=== PATIENT | female | born 1960 | race Caucasian/White ===

== ENCOUNTER → 2020-08-04 10:50 | Outpatient (BNVA) | payer OTHER, SELFPAY | PROVIDERS: Visit Provider Nurse Practitioner | DX: M19.072 Primary osteoarthritis, left ankle and foot (principal); M79.675 Pain in left toe(s) | CPT/HCPCS: 73630 ==

== ENCOUNTER 2021-02-20 13:14 | Outpatient (CLI) | payer OTHER, SELFPAY ==
--- NOTE | 2021-02-20 13:21 | MM_ITS ---
WS: [id number] SCREENING DIGITAL MAMMOGRAM WITH CAD HISTORY: SCREENING COMPARISON: None available. Bilateral CC and MLO views submitted. Computer aided detection analyzed. Breast composition: There are scattered areas of fibroglandular density. No suspicious masses. There are a few benign calcifications within each breast. MM/[place] [id number] IMPRESSION: BI-RADS: 0-Incomplete: Need additional imaging evaluation FOLLOW UP: Need Additional Imaging Patient describes a palpable abnormality in the LEFT breast near 6:00. This nee ds to be further evaluated with diagnostic mammogram and possible ultrasound fo llow-up.
== END 2021-02-20 13:15 | disposition home or self-care (01) ==
LOC: RADSHAW 13:20
PROVIDERS: PCP Family Medicine Adult Medicine; Visit Provider Family Medicine Adult Medicine
DX: Z12.31 Encounter for screening mammogram for malignant neoplasm of breast (principal)
CPT/HCPCS: 77067

== ENCOUNTER 2021-03-06 12:44 | Outpatient (CLI) | payer OTHER, SELFPAY ==
--- NOTE | 2021-03-06 13:00 | MM_ITS ---
WS: [id number] ADDITIONAL VIEWS LEFT MAMMOGRAM LEFT BREAST ULTRASOUND HISTORY: Patient describes a palpable abnormality in the LEFT breast COMPARISON: 02/20/2021 LEFT MAMMOGRAM: Spot compression views and true ML. Marker placed in the LEFT breast at the area of palpable concern. Today this palpable marker is place d near 9:00 and not 6:00. No underlying abnormality is identified. There may be a small lymph node. U ltrasound to follow. LEFT BREAST ULTRASOUND 2-D and color Doppler imaging submitted. Ultrasound directed to the palpable area. No mass is identified. There is no soft tissue abnormality or increased vascularity. MM/[place] [id number] IMPRESSION: BI-RADS: 2-Benign FOLLOW UP: 1 Year Follow-up No abnormality in the region of the palpable nodule LEFT breast.
--- NOTE | 2021-03-06 13:30 | US_ITS ---
WS: [id number] ADDITIONAL VIEWS LEFT MAMMOGRAM LEFT BREAST ULTRASOUND HISTORY: Patient describes a palpable abnormality in the LEFT breast COMPARISON: 02/20/2021 LEFT MAMMOGRAM: Spot compression views and true ML. Marker placed in the LEFT breast at the area of palpable concern. Today this palpable marker is place d near 9:00 and not 6:00. No underlying abnormality is identified. There may be a small lymph node. U ltrasound to follow. LEFT BREAST ULTRASOUND 2-D and color Doppler imaging submitted. Ultrasound directed to the palpable area. No mass is identified. There is no soft tissue abnormality or increased vascularity. US/US breast LT limited* [id number] IMPRESSION: BI-RADS: 2-Benign FOLLOW UP: 1 Year Follow-up No abnormality in the region of the palpable nodule LEFT breast.
== END 2021-03-06 12:45 | disposition home or self-care (01) ==
LOC: RADSHAW 12:52
PROVIDERS: PCP Family Medicine Adult Medicine; Visit Provider Family Medicine Adult Medicine
DX: N63.25 Unspecified lump in the left breast, overlapping quadrants (principal)
CPT/HCPCS: 76642; 77065

== ENCOUNTER → 2021-03-26 14:55 | Outpatient (BNVA) | payer OTHER, SELFPAY | PROVIDERS: PCP Family Medicine Adult Medicine; Referring Provider Family Medicine Adult Medicine; Visit Provider Specialist | DX: M17.12 Unilateral primary osteoarthritis, left knee (principal); M17.11 Unilateral primary osteoarthritis, right knee | CPT/HCPCS: 73560; 73565 ==

== ENCOUNTER → 2021-04-23 09:24 | Outpatient (BNVA) | payer OTHER, SELFPAY | PROVIDERS: PCP Family Medicine Adult Medicine; Visit Provider Family Medicine Adult Medicine | DX: E11.9 Type 2 diabetes mellitus without complications (principal); E66.01 Morbid (severe) obesity due to excess calories; Z68.42 Body mass index [BMI] 45.0-49.9, adult; I10 Essential (primary) hypertension; M19.90 Unspecified osteoarthritis, unspecified site | CPT/HCPCS: 80053; 80061; 83036; 84443; 85025; 85651 ==

== ENCOUNTER → 2021-05-17 11:10 | Outpatient (BNVA) | payer OTHER, SELFPAY | PROVIDERS: PCP Family Medicine Adult Medicine; Visit Provider Nurse Practitioner Family | DX: Z20.822 Contact with and (suspected) exposure to COVID-19 (principal); J06.9 Acute upper respiratory infection, unspecified | CPT/HCPCS: 87426 ==

== ENCOUNTER 2021-05-18 11:46 | Outpatient (CLI) | payer OTHER, SELFPAY ==
[2021-05-18 11:40] VITALS: BP 135/82; PULSE 74; RESP 18; TEMP 36.9; O2SAT 96; BMI 47.1
[2021-05-18 13:14] VITALS: BP 166/82; PULSE 68; RESP 17; O2SAT 96
[2021-05-18 14:14] VITALS: BP 142/83; PULSE 73; RESP 18; TEMP 36.7; O2SAT 98
== END 2021-05-18 11:47 | disposition home or self-care (01) ==
PROVIDERS: PCP Family Medicine Adult Medicine; Visit Provider Nurse Practitioner Family
DX: U07.1 COVID-19 (principal)
CPT/HCPCS: 96365

== ENCOUNTER → 2021-06-29 12:04 | Outpatient (BNVA) | payer OTHER, SELFPAY | PROVIDERS: PCP Family Medicine Adult Medicine; Visit Provider Family Medicine Adult Medicine | DX: R11.0 Nausea (principal) | CPT/HCPCS: 82270 ==

== ENCOUNTER → 2021-07-03 12:06 | Outpatient (BNVA) | payer OTHER, SELFPAY | PROVIDERS: PCP Family Medicine Adult Medicine; Visit Provider Family Medicine Adult Medicine | DX: E78.5 Hyperlipidemia, unspecified (principal); R11.0 Nausea; Z13.6 Encounter for screening for cardiovascular disorders | CPT/HCPCS: 80053; 82150; 83036; 83690; 85025 ==

== ENCOUNTER → 2021-07-04 11:21 | Outpatient (BNVA) | payer OTHER, SELFPAY | PROVIDERS: PCP Family Medicine Adult Medicine; Visit Provider Family Medicine Adult Medicine | DX: E78.5 Hyperlipidemia, unspecified (principal); R11.0 Nausea; Z13.6 Encounter for screening for cardiovascular disorders | CPT/HCPCS: 87177; 87209 ==

== ENCOUNTER 2021-07-19 09:05 | Outpatient (CLI) | payer OTHER, SELFPAY ==
[2021-07-19] MEDS: iohexol 300 mg/mL 50 mL Btl PO (09:49)
[2021-07-19] MEDS: iohexol 350 mg/mL 100 mL Btl IV (10:42)
--- NOTE | 2021-07-19 11:00 | CT_ITS ---
WS: [id number] CT ABDOMEN AND PELVIS WITH CONTRAST HISTORY: R10.9 - Unspecified abdominal pain, mid abdominal pain for 4 to 5 months. TECHNIQUE: Imaging performed of the abdomen and pelvis with IV contrast. Single phase imaging of the abdomen. Coronal and sagittal reformats are submitted. All CT scans at [facility] use at [address] one of these dose optimization techniques: automated exposure control; mA and/or kV adjustment per patient size (includes targeted exams where dose is matched to clinical indication); or iterative re construction. IV CONTRAST: Omnipaque 350; 95 mL IV. Oral contrast: Yes. DLP: 1292.56 mGycm COMPARISON: None available. Lower thorax: Low-attenuation mass abutting the pericardium of the RIGHT atrium measures 4.3 x 1.8 cm . . Mildly enlarged heart. No pericardial effusion. No hiatal hernia. Liver/biliary system: Normal size with no intrahepatic dilatation. Gallbladder: Normal. No gallstones or wall thickening. No pericholecystic fluid. Pancreas: Normal size pancreas and pancreatic duct. No adjacent inflammation. Spleen: Normal size spleen. No mass or infarct. Adrenal glands: Normal. Right kidney: Normal size kidney. Exophytic 7 mm cyst from the mid kidney. No obstruction. Left kidney: Normal. Aorta: Normal. Lymphadenopathy: None. Free fluid: None. GI tract: Normal appendix. No GI tract obstruction. Numerous diverticula in the descending and sigmoi d colon. There is some very mild inflammation surrounding the sigmoid colon with narrowing of the lum en. Abdominal wall: Small fat-containing umbilical hernia. Pelvis: Normal size anteverted uterus. No free fluid or pelvic masses. Normal urinary bladder. Bones: Moderate degenerative disc disease and vacuum disc phenomenon at L4-5 and L5-S1. CT/CT abdomen pelvis w con* [id number] IMPRESSION: 1. Normal appendix. 2. No renal obstruction. 3. Descending and sigmoid diverticulosis. Focal area of mild inflammation and luminal narrowing in the sigmoid colon. Low-grade diverticulitis should be susp ected. No abscess or free air. 4. Pericardial cyst abutting the RIGHT atrium.
== END 2021-07-19 09:06 | disposition home or self-care (01) ==
PROVIDERS: PCP Family Medicine Adult Medicine; Visit Provider Surgery
DX: R10.9 Unspecified abdominal pain (principal); K57.30 Diverticulosis of large intestine without perforation or abscess without bleeding
CPT/HCPCS: 74177; Q9967

== ENCOUNTER 2021-08-28 08:22 | Outpatient (CLI) | payer OTHER, SELFPAY ==
--- NOTE | 2021-08-28 08:27 | FL_ITS ---
WS: [id number] Barium Enema TECHNICAL: Double contrast barium enema FLUOROSCOPY TIME: 2.7 minutes CLINICAL INFORMATION: R10.9 - Unspecified abdominal pain COMPARISON: CT July 19, 2021 FINDINGS: Tortuous sigmoid colon. Sigmoid diverticulosis. Mild narrowing in the area of recently natalie kishore diverticulitis. No evidence of high-grade stricture or obstructing mass. Free flow of contrast in to the hepatic flexure and splenic flexures. Tortuous hepatic flexure. Additional colonic diverticulo sis scattered throughout the colon. Normal cecum and ileocecal valve. No suspicious findings. FL/FL barium enema w air* [id number] IMPRESSION: Unremarkable barium enema
== END 2021-08-28 08:23 | disposition home or self-care (01) ==
LOC: RAD 08:24
PROVIDERS: PCP Family Medicine Adult Medicine; Visit Provider Surgery
DX: R10.9 Unspecified abdominal pain (principal)
CPT/HCPCS: 74280

== ENCOUNTER 2021-09-19 07:51 | Outpatient (CLI) | payer OTHER, SELFPAY ==
--- NOTE | 2021-09-19 08:00 | USCV_ITS ---
Arelis Nathan Age: 61 Gender: F : 1960 Exam Date: 09/19/2021 08:23 Ordering Phys: Marquis Diamond MD ([email or web address]) Technologist: LAWRENCE Exam Location: [facility] [place] Indication: CARDIOMEGALY BP: 140 / 86 HR: 64 Rhythm: Sinus Technical Quality: Technically difficult study MEASUREMENTS (Male / Female) Normal Values 2D ECHO LV Diastolic Diameter PLAX 4.3 cm 4.2 - 5.9 / 3.9 - 5.3 cm LV Systolic Diameter PLAX 2.7 cm IVS Diastolic Thickness 0.9 cm 0.6 - 1.0 / 0.6 - 0.9 cm IVS Systolic Thickness 0.9 cm LVPW Diastolic Thickness 1.2 cm 0.6 - 1.0 / 0.6 - 0.9 cm LVPW Systolic Thickness 2.1 cm LVOT Diameter 2.0 cm LV Ejection Fraction 2D Teich 65.8 % LV Ejection Fraction MOD 2C 52.9 % LV Ejection Fraction 2C AL 55.4 % LA Diameter 4.1 cm LA Width 3.3 cm LA Height 5.4 cm RA Width 3.5 cm RA Height 4.4 cm Aorta at Sinotubular Diameter 1.7 cm M-MODE Aortic Annulus Diameter 3.1 cm LA Ao Ratio MM 1.3 MV E Point Septal Separation 0.7 cm DOPPLER AV Peak Velocity 217.0 cm/s LVOT Peak Velocity 111.0 cm/s AV Area Cont Eq vti 1.4 cm squared AV Area Cont Eq pk 1.6 cm squared MV Area PHT 3.1 cm squared Mitral E to A Ratio 0.7 MV E' Velocity 41.0 cm/s Mitral E to MV E' Ratio 9.7 Mitral E to LV E' Lateral Ratio 11.1 Mitral E to LV E' Septal Ratio 8.7 TR Peak Velocity 269.2 cm/s TR Peak Gradient 29.0 mmHg TR Mean Velocity 211.8 cm/s TR Mean Gradient 18.8 mmHg TR Velocity Time Integral 77.7 cm RV Acceleration Time 0.1 s RV Ejection Time 0.3 s RV AcT/ET 0.5 FINDINGS Left Ventricle Normal left ventricular cavity size. Normal left ventricular systolic function. No regional wall motion abnormalities. Left ventricular ejection fraction is estimated at 65 %. Grade I/IV diastolic dysfunction (abnormal relaxation filling pattern), normal to mildly elevated filling pressures. Right Ventricle The right ventricle is normal in size and function. RVSP could not be calculated due to incomplete tricuspid regurgitation velocity profile. Right Atrium The right atrium is normal in size. Left Atrium The left atrium is normal in size. Mitral Valve Moderately thickened mitral valve. Mild mitral annular calcification. No mitral valve stenosis. No mitral valve regurgitation. Aortic Valve Moderate aortic valve calcification. No aortic valve stenosis. No aortic valve regurgitation. Tricuspid Valve Structurally normal tricuspid valve without significant stenosis or regurgitation. Pulmonic Valve Structurally normal pulmonic valve without significant stenosis. There is no pulmonic regurgitation. Pericardium Normal pericardium without effusion. Aorta Normal ascending aorta dimension. CONCLUSIONS 1-Normal left ventricular cavity size. Normal left ventricular systolic function. No regional wall motion abnormalities. Left ventricular ejection fraction is estimated at 65 %. Grade I/IV diastolic dysfunction (abnormal relaxation filling pattern), normal to mildly elevated filling pressures. 2-Moderately thickened mitral valve. Mild mitral annular calcification. No mitral valve stenosis. No mitral valve regurgitation. 3-Moderate aortic valve calcification. No aortic valve stenosis. No aortic valve regurgitation. 4-There is no pericardial effusion. 5-Right atrial pressure is around 5 mm of mercury. 6-There are no prior echocardiogram studies to compare. Marquis Diamond MD (Electronically Signed) Final Date: 19 September 2021 18:31 S
== END 2021-09-19 07:52 | disposition home or self-care (01) ==
PROVIDERS: PCP Family Medicine Adult Medicine; Visit Provider Internal Medicine Cardiovascular Disease
DX: I08.0 Rheumatic disorders of both mitral and aortic valves (principal)
CPT/HCPCS: 93306

== ENCOUNTER → 2021-09-24 14:20 | Outpatient (BNVA) | payer OTHER, SELFPAY | PROVIDERS: PCP Family Medicine Adult Medicine; Visit Provider Family Medicine Adult Medicine | DX: B34.9 Viral infection, unspecified (principal); Z20.828 Contact with and (suspected) exposure to other viral communicable diseases | CPT/HCPCS: 87635 ==

== ENCOUNTER 2021-10-03 08:11 | Emergency (ER) | payer OTHER, SELFPAY ==
[2021-10-03 08:14] VITALS: BP 112/38; PULSE 64; RESP 14; TEMP 36.4; O2SAT 95; BMI 45.6
--- NOTE | 2021-10-03 08:33 | XR_ITS ---
WS: [id number] Exam: [place] [id number] Date/Time of Exam: 10/03/2021 8:38 AM Reason For Exam: fall No acute humeral fracture. Mild DJD at the glenohumeral joint. Normal soft tissues. XR/[place] [id number] IMPRESSION: 1. No acute humeral fracture.
--- NOTE | 2021-10-03 08:33 | XR_ITS ---
WS: [id number] Exam: XR shoulder RT min 2V* [id number] Date/Time of Exam: 10/03/2021 8:38 AM Reason For Exam: fall Nondisplaced acromial fracture noted. The glenohumeral joint is intact. DJD of the AC joint and gleno humeral joint. XR/XR shoulder RT min 2V* [id number] IMPRESSION: 1. Nondisplaced acromial fracture. No other fractures of the shoulder are noted .
--- NOTE | 2021-10-03 08:33 | XR_ITS ---
WS: [id number] Exam: [place] [id number] Date/Time of Exam: 10/03/2021 8:38 AM Reason For Exam: fall There is a nondisplaced fracture of the acromion. The clavicle is intact. Normal soft tissues. XR/[place] [id number] IMPRESSION: 1. Nondisplaced acromial fracture. The clavicle appears to be intact. 2. Mild DJD at the AC joint.
--- NOTE | 2021-10-03 08:38 | W.ED.FALL ---
Documented by User: EMELIA Arenas 10/03/21 12:58 HPI - Fall General: Chief Complaint: Fall Stated Complaint: FALL - R SHOULDER PAIN Time Seen by Provider: 10/03/21 08:15 History of Present Illness: HPI Narrative: Patient arrived via ambulance complaint of right upper arm and clavicle pain after fall sustained this morning when walking upstairs. Patient landed on her right shoulder/arm. Patient states it hurts to move the arm. Patient states that she had history of knee surgery right knee and does not have an ACL and sometimes that knee gives out on her and that is what happened this morning. Patient denies any further injury. complaint: fall Onset (ago): minute(s) Fall from: standing Fall witnessed: yes, by family Place fall occurred: home Loss of consciousness: None Symptoms prior to fall: none Context: tripped/slipped Severity: moderate Severity scale (1-10): 5 Quality: aching Associated symptoms-after fall: Reports no associated symptoms; Denies abdominal pain, chest pain or headache(s) Review of Systems Const: Denies: fever(s), chills or body aches Eyes: Denies: change in vision or blurry vision ENMT: Denies: throat pain or nasal congestion Card: Denies: chest pain or dyspnea on exertion Resp: Denies: dyspnea, productive cough or non-productive cough GI: Denies: abdominal pain, nausea or vomiting Musc: Reports: extremity pain (Right shoulders/upper humerus/clavicle hurts she states) and joint pain Skin/Breast: Denies: rash Neuro: Denies: headache(s) Psych: Denies: anxiety or depression Finesse/Lymph: Denies: easy bruising PFSH ED PFSH: Medical History Acute bronchitis and bronchiolitis Acute viral syndrome Asthma Breast lump on left side at 6 o'clock position Chest pain Chronic generalized abdominal pain Chronic nausea COVID-19 Positive test for COVID-19 05/17/2021 Diabetic neuropathy Diverticulitis Diverticulosis large intestine w/o perforation or abscess w/o bleeding Fall History of chronic pain Hx of pulmonary embolus Hyperlipidemia Hypertension Ingrown left big toenail Insomnia LVH (left ventricular hypertrophy) Osteoarthritis (arthritis due to wear and tear of joints) Plantar fascia syndrome Primary localized osteoarthritis of knees, bilateral Shortness of breath Type 2 diabetes mellitus Surgical History Hx of right knee surgery 30 yrs ago [facility] Family History Other Cancer Diabetes Hyperlipidemia Hypertension LVH (left ventricular hypertrophy) Stroke Social History Alcohol intake: never Marital status: Number of children: 1 Number of grandchildren: 2 Current occupational status: retired Physical Exam Const: COMMON NORMALS: patient oriented x3 GENERAL APPEARANCE: cooperative Resp: COMMON NORMALS: normal respiratory effort Cardio: COMMON NORMALS: regular rate RATE: regular rate GI: COMMON NORMALS: Normal to inspection, nondistended, normoactive bowel sounds present Extremity: NARRATIVE EXTREMITY EXAM: Patient with tenderness palpation to right upper arm clavicle shoulder area. Able to move fingers wrist elbow area without difficulty does not want to lift right arm tenderness to palpation distal clavicle shoulder and right upper arm area OTHER: Calves look normal. No pain with palpation. No bruising or swelling to her legs. Neuro: COMMON NORMALS: patient oriented x3 and no focal motor deficits Skin: COMMON NORMALS: no rashes or lesions noted (No bruising) GENERAL SKIN EXAM: no rashes or lesions noted (No bruising) Course Vital Signs: Vital signs: Vital Signs Temperature 97.5 F L 10/03/21 08:14 Pulse Rate 64 10/03/21 08:14 Respiratory Rate 14 10/03/21 08:14 Blood Pressure 114/51 10/03/21 10:39 Pulse Oximetry 95 10/03/21 08:14 MDM - Fall MDM Narrative: Medical decision making narrative: Patient presents via ambulance with complaint about right shoulder pain. Patient fell on stairs this morning when her knee gave out on her. She has a history of no ACL in her right knee postsurgery. Patient has tenderness to the outer aspect of her right shoulder. Radiology studies reveal nondisplaced fracture right acromion process. Patient placed in sling given appropriate medications with referral to orthopedics for follow-up. Discharge Plan Discharge Patient Disposition: Home Clinical Impression: Fall Qualifiers: Encounter type: initial encounter Qualified Code(s): W19.XXXA - Unspecified fall, initial encounter Fracture of acromial process Qualifiers: Encounter type: initial encounter Fracture type: closed Fracture alignment: nondisplaced Laterality: right Qualified Code(s): S42.124A - Nondisplaced fracture of acromial process, right shoulder, initial encounter for closed fracture Condition: Stable Prescriptions: New hydrocodone-acetaminophen 5-325 mg tablet 1 tab PO TID PRN (Reason: pain) Qty: 14 RF: 0 No Action Eliquis 5 mg tablet 5 mg PO BID Qty: 180 RF: 3 budesonide 0.5 mg/2 mL suspension for nebulization 0.5 mg inhalation TID PRN (Reason: SOB or wheezing) Qty: 180 RF: 2 lovastatin 20 mg tablet 20 mg PO DAILY Qty: 90 RF: 3 montelukast 10 mg tablet 10 mg PO DAILY Qty: 90 RF: 3 ondansetron 8 mg film 8 mg PO Q12H PRN (Reason: nausea and vomiting) Qty: 60 RF: 3 celecoxib 200 mg capsule 200 mg PO BID RF: 0 fluticasone propion-salmeterol [Advair Diskus] 250-50 mcg/dose blister with device 1 inh inhalation BID PRN (Reason: unknown) RF: 0 isosorbide mononitrate 30 mg tablet extended release 24 hr 15 mg PO BID Qty: 30 RF: 6 nitroglycerin [Nitrostat] 0.4 mg tablet, sublingual 0.4 mg sublingual Q5M PRN (Reason: chest pain) Qty: 25 RF: 3 valsartan-hydrochlorothiazide 320-25 mg tablet 0.5 tab PO BID Qty: 30 RF: 6 levofloxacin 750 mg tablet 750 mg PO DAILY Qty: 10 RF: 0 metformin 1,000 mg tablet 1,000 mg PO BID Qty: 180 RF: 3 tramadol 50 mg tablet 50 mg PO Q6H PRN (Reason: moderate to severe pain) Qty: 60 RF: 1 carvedilol 12.5 mg tablet 18.75 mg PO BID Qty: 270 RF: 3 multivitamin Tablet 1 tab PO DAILY RF: 0 Lantus Solostar U-100 Insulin 100 unit/mL (3 mL) Insulin Pen See Rx Instructions .ROUTE .COMPLEX RF: 0 Vitamin D3 1 cap PO DAILY RF: 0 folic acid 1 tab PO DAILY RF: 0 amitriptyline 50 mg tablet 50 mg PO BEDTIME RF: 0 zolpidem 10 mg tablet 10 - 20 mg PO BEDTIME PRN (Reason: Sleep) RF: 0 Discharge Orders: Discharge ED (Routine); Ordered 10/03/21 Ordered By: Terry Beaulieu Referrals: Sim Maddox MD [Primary Care Provider] - Discharge Diet: Usual diet Discharge Activity: Limit activity as instructed Activity Restrictions/Additional Instructions: Follow-up with medical provider as directed. Take medications as prescribed. Return to the ER or your medical provider if condition worsens. Please read and understand discharge instructions. If any questions ask please. You have an acromion process nondisplaced fracture on your right shoulder. Hospital will contact you with follow-up for orthopedic clinic follow-up. Apply ice to area, wear sling until follow-up. Coding Level of Care Code ED Certified Appliance Service Technician for Chg Fwd Exam Detailed Documented by User: Augusto Francisco DO 10/03/21 15:57 HPI - Fall General: Chief Complaint: Fall Stated Complaint: FALL - R SHOULDER PAIN Time Seen by Provider: 10/03/21 08:15 [facility] ED PFSH: Medical History Acute bronchitis and bronchiolitis Acute viral syndrome Asthma Breast lump on left side at 6 o'clock position Chest pain Chronic generalized abdominal pain Chronic nausea COVID-19 Positive test for COVID-19 05/17/2021 Diabetic neuropathy Diverticulitis Diverticulosis large intestine w/o perforation or abscess w/o bleeding Fall History of chronic pain Hx of pulmonary embolus Hyperlipidemia Hypertension Ingrown left big toenail Insomnia LVH (left ventricular hypertrophy) Osteoarthritis (arthritis due to wear and tear of joints) Plantar fascia syndrome Primary localized osteoarthritis of knees, bilateral Shortness of breath Type 2 diabetes mellitus Surgical History Hx of right knee surgery 30 yrs ago [facility] Family History Other Cancer Diabetes Hyperlipidemia Hypertension LVH (left ventricular hypertrophy) Stroke Social History Alcohol intake: never Marital status: Number of children: 1 Number of grandchildren: 2 Current occupational status: retired Course Vital Signs: Vital signs: Vital Signs Temperature 97.5 F L 10/03/21 08:14 Pulse Rate 64 10/03/21 08:14 Respiratory Rate 14 10/03/21 08:14 Blood Pressure 114/51 10/03/21 10:39 Pulse Oximetry 95 10/03/21 08:14 MDM - Fall MDM Narrative: Medical decision making narrative: Chart reviewed and patient discussed with midlevel. Agree with assessment and plan. Discharge Plan Discharge Patient Disposition: Home Clinical Impression: Fall Qualifiers: Encounter type: initial encounter Qualified Code(s): W19.XXXA - Unspecified fall, initial encounter Fracture of acromial process Qualifiers: Encounter type: initial encounter Fracture type: closed Fracture alignment: nondisplaced Laterality: right Qualified Code(s): S42.124A - Nondisplaced fracture of acromial process, right shoulder, initial encounter for closed fracture Condition: Stable Prescriptions: New hydrocodone-acetaminophen 5-325 mg tablet 1 tab PO TID PRN (Reason: pain) Qty: 14 RF: 0 No Action Eliquis 5 mg tablet 5 mg PO BID Qty: 180 RF: 3 budesonide 0.5 mg/2 mL suspension for nebulization 0.5 mg inhalation TID PRN (Reason: SOB or wheezing) Qty: 180 RF: 2 lovastatin 20 mg tablet 20 mg PO DAILY Qty: 90 RF: 3 montelukast 10 mg tablet 10 mg PO DAILY Qty: 90 RF: 3 ondansetron 8 mg film 8 mg PO Q12H PRN (Reason: nausea and vomiting) Qty: 60 RF: 3 celecoxib 200 mg capsule 200 mg PO BID RF: 0 fluticasone propion-salmeterol [Advair Diskus] 250-50 mcg/dose blister with device 1 inh inhalation BID PRN (Reason: unknown) RF: 0 isosorbide mononitrate 30 mg tablet extended release 24 hr 15 mg PO BID Qty: 30 RF: 6 nitroglycerin [Nitrostat] 0.4 mg tablet, sublingual 0.4 mg sublingual Q5M PRN (Reason: chest pain) Qty: 25 RF: 3 valsartan-hydrochlorothiazide 320-25 mg tablet 0.5 tab PO BID Qty: 30 RF: 6 levofloxacin 750 mg tablet 750 mg PO DAILY Qty: 10 RF: 0 metformin 1,000 mg tablet 1,000 mg PO BID Qty: 180 RF: 3 tramadol 50 mg tablet 50 mg PO Q6H PRN (Reason: moderate to severe pain) Qty: 60 RF: 1 carvedilol 12.5 mg tablet 18.75 mg PO BID Qty: 270 RF: 3 multivitamin Tablet 1 tab PO DAILY RF: 0 Lantus Solostar U-100 Insulin 100 unit/mL (3 mL) Insulin Pen See Rx Instructions .ROUTE .COMPLEX RF: 0 Vitamin D3 1 cap PO DAILY RF: 0 folic acid 1 tab PO DAILY RF: 0 amitriptyline 50 mg tablet 50 mg PO BEDTIME RF: 0 zolpidem 10 mg tablet 10 - 20 mg PO BEDTIME PRN (Reason: Sleep) RF: 0 Discharge Orders: Discharge ED (Routine); Ordered 10/03/21 Ordered By: Terry Beaulieu Referrals: Sim Maddox MD [Primary Care Provider] - Discharge Diet: Usual diet Discharge Activity: Limit activity as instructed Activity Restrictions/Additional Instructions: Follow-up with medical provider as directed. Take medications as prescribed. Return to the ER or your medical provider if condition worsens. Please read and understand discharge instructions. If any questions ask please. You have an acromion process nondisplaced fracture on your right shoulder. Hospital will contact you with follow-up for orthopedic clinic follow-up. Apply ice to area, wear sling until follow-up. Coding Level of Care Code ED Certified Appliance Service Technician for Beck Fwd Exam Detailed
[2021-10-03 10:39] VITALS: BP 114/51
--- NOTE | 2021-10-03 10:42 | PC.NURSE ---
patient discharged to home with , sling in place, both verbalize understanding of all instructions, need for appointment and medication to fill, patient taken to lobby via wheelchair
--- NOTE | 2021-10-04 10:12 | DCPLANNER ---
Addendum entered by Glenna Monique 10/11/21 12:49: Patient had a follow up appointment scheduled for 10.08.21 with ortho - patient did attend appointment. Original Note: ecommerce marketing manager had message to schedule a follow up appointment for patient with ortho. ecommerce marketing manager called the ortho clinic, spoke with Lianne, gave clinic patients information. ecommerce marketing manager was told that patients information would be printed and reviewed. Clinic will call patient with appointment information.
== END 2021-10-03 10:40 | disposition home or self-care (01) ==
PROVIDERS: Emergency Provider Nurse Practitioner Family; PCP Family Medicine Adult Medicine
DX: S42.124A Nondisplaced fracture of acromial process, right shoulder, initial encounter for closed fracture (principal); W10.9XXA Fall (on) (from) unspecified stairs and steps, initial encounter; Z98.890 Other specified postprocedural states; J45.909 Unspecified asthma, uncomplicated; E11.40 Type 2 diabetes mellitus with diabetic neuropathy, unspecified; E78.5 Hyperlipidemia, unspecified; I10 Essential (primary) hypertension
CPT/HCPCS: 73000; 73030; 73060; 99283

== ENCOUNTER → 2021-10-08 09:51 | Outpatient (BNVA) | payer OTHER, SELFPAY | PROVIDERS: PCP Family Medicine Adult Medicine; Referring Provider Family Medicine Adult Medicine; Visit Provider Specialist | DX: S42.124A Nondisplaced fracture of acromial process, right shoulder, initial encounter for closed fracture (principal); X58.XXXA Exposure to other specified factors, initial encounter | CPT/HCPCS: 73030 ==

== ENCOUNTER 2021-10-08 10:43 | Outpatient (CLI) | payer OTHER, SELFPAY | END 2021-10-08 10:44 | disposition home or self-care (01) | LOC: SPT 10:44 | PROVIDERS: PCP Family Medicine Adult Medicine; Visit Provider Specialist | DX: Z46.89 Encounter for fitting and adjustment of other specified devices (principal); S42.124D Nondisplaced fracture of acromial process, right shoulder, subsequent encounter for fracture with routine healing; X58.XXXD Exposure to other specified factors, subsequent encounter | CPT/HCPCS: 97760; L3670 ==

== ENCOUNTER → 2021-10-31 09:23 | Outpatient (BNVA) | payer OTHER, SELFPAY | PROVIDERS: PCP Family Medicine Adult Medicine; Visit Provider Specialist | DX: S42.124A Nondisplaced fracture of acromial process, right shoulder, initial encounter for closed fracture (principal); S42.033A Displaced fracture of lateral end of unspecified clavicle, initial encounter for closed fracture; X58.XXXA Exposure to other specified factors, initial encounter | CPT/HCPCS: 73030 ==

== ENCOUNTER 2021-11-19 08:59 | Outpatient (CLI) | payer OTHER, SELFPAY ==
[2021-11-19 09:10] VITALS: BMI 45.6
--- NOTE | 2021-11-19 09:19 | ECG_ITS ---
[facility] Test Date: 2021-11-19 Pat Name: Arelis Nathan Department: Room: Gender: Female News Commentator: Raginihugo Smithn : 1960 Requested By: Marquis Diamond Order Number: [id number] Andrei MD: Cristian Love M.D. Interpretive Statements NAME OF STUDY: DOBUTAMINE STRESS ECHOCARDIOGRAM INDICATION: [Chest Pain, ] EXERCISE DATA: Baseline heart rate was 72 beats per minute. Baseline blood pressure was 139/67 millimeters of mercury. Target heart rate was 136 beats per minute. Maximum heart rate achieved was 152, which was 111% of the target heart rate. Maximum blood pressure was 144/61 millimeters of mercury. ELECTROCARDIOGRAM: BASELINE: Showed sinus rhythm, normal axis, no significant ST-T changes at the baseline noted. [] EXERCISE: At the peak exercise level,sinus tachycardia was seen. No significant ST-T changes suggestive of ischemia noted. PVCs were noted[] RECOVERY: During the recovery period, heart rate dropped appropriately. No significant ST-T changes in the recovery suggestive of ischemia noted. [] CONCLUSION: 1. Heart rate response was appropriate. 2. Blood pressure response was [appropriate]. 3. Symptoms not suggestive of ischemia. 4. Electrocardiogram portion of the stress test was not suggestive of ischemia. Electronically Signed On 12-22-2021 12:00:48 CDT by Cristian Love M.D. [email or web address]
--- NOTE | 2021-11-19 10:13 | USCV_ITS ---
Dobutamine Stress Echo Arelis Nathan Age: 61 Gender: F : 1960 Exam Date: 11/19/2021 10:09 Ordering Phys: Marquis Diamond MD ([email or web address]) Technologist: Eduard Fischer Exam Location: [facility] [place] Indication: cp Rhythm: Sinus Patient History: Chest pain Cardiac Medications: Medications in past 24 hours: Contrast: Optison Total Dose (mL): 10 Stress Results Protocol: Peak Dose (???g/kg/min): Duration (min:sec): 14:00 Atropine:(mg) 1.0 Target HR: 136 Double Product: [id number] Resting HR: 66 Resting BP: 139 / 67 Peak HR: 152 Peak BP: 144 / 77 Max Predicted HR: 160 95 % Max Predicted HR Stress Summary: The hemodynamic response to stress was normal. BP Response: Normal Reason for Termination: The patients target heart rate was achieved Cardiac Symptoms: None ECG Analysis Resting EKG: Normal sinus rhythm with heart rate of 70 [address]-T wave changes. Stress EKG: Sinus tachycardia with no significant ST-T wave changes. Target heart rate was achieved. Arrhythmia: Frequent PVCs MEASUREMENTS (Male/Female) Normal Values FINDINGS On baseline LV systolic function is normal with no regional wall motion abnormalities. Target heart rate was 136 bpm. On stress levels no regional wall motion normalities were seen. LV systolic function appropriately increased to more than 70%. However stress images were obtained 2-4 beats below target heart rate. This decreases sensitivity of the test however overall negative stress test for ischemia. CONCLUSIONS Baseline LV systolic function is normal with EF of 55 to 60%. No EKG evidence of ischemia. At stress level, LV systolic function appropriately increased to more than 70% without any regional wall motion abnormalities. Stress images were obtained 2-4 beats of below target heart rate this decreases the sensitivity of the test however overall negative stress test for ischemia. Cristian Love MD (Electronically Signed) Final Date: 02 December 2021 19:46 S
[2021-11-19] MEDS: DOBUTtamine 200 MG in sodium chloride 0.9% 34 ML 20 MG IV (10:24)
[2021-11-19] MEDS: atropine 0.1 mg/mL Syr 10 mL 0.5 MG IVP (10:37)
[2021-11-19 10:55] VITALS: BP 100/52; PULSE 97
== END 2021-11-19 09:00 | disposition home or self-care (01) ==
PROVIDERS: PCP Family Medicine Adult Medicine; Visit Provider Internal Medicine Cardiovascular Disease
DX: R07.9 Chest pain, unspecified (principal)
CPT/HCPCS: 93017; 93350; 93352; J0461; J1250; J7050

== ENCOUNTER 2022-05-04 15:44 | Emergency (ER) | payer OTHER, SELFPAY ==
[2022-05-04 15:48] VITALS: BP 142/69; PULSE 75; RESP 20; TEMP 36.8; O2SAT 95; BMI 46.3
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
--- NOTE | 2022-05-04 16:07 | XRR_ITS ---
PROCEDURE INFORMATION: Exam: XR Thoracic Spine Exam date and time: 05/04/2022 4:31 PM Age: 61 years old Clinical indication: Injury or trauma; Other: Tubing; Blunt trauma (contusions or hematomas); Injury details: --pain; Trauma x3 wks ago, [place] TECHNIQUE: Imaging protocol: Radiologic exam of the thoracic spine. Views: 3 views. COMPARISON: CR FL barium enema w air* [id number] 08/28/2021 8:46 AM FINDINGS: Bones/joints: No acute fracture. Normal alignment. Soft tissues: Unremarkable. XR/XR thoracic spine 3V* [id number] IMPRESSION: No acute findings.
--- NOTE | 2022-05-04 16:07 | XRR_ITS ---
PROCEDURE INFORMATION: Exam: XR Lumbosacral Spine Exam date and time: 05/04/2022 4:31 PM Age: 61 years old Clinical indication: Injury or trauma; Other: Tubing; Blunt trauma (contusions or hematomas); Injury details: --pain; Trauma x3 wks ago, [place] TECHNIQUE: Imaging protocol: Radiologic exam of the lumbosacral spine. Views: 2 or 3 views. COMPARISON: CT abdomen pelvis w con* [id number] 07/19/2021 10:39 AM FINDINGS: Bones/joints: No acute fracture. Degenerative disc disease at L4-L5 and L5-S1. Minimal grade 1 anterolisthesis of L4 on L5. Soft tissues: Unremarkable. XR/XR lumbar spine 2-3V* [id number] IMPRESSION: No acute findings.
[2022-05-04 17:00] VITALS: RESP 21
[2022-05-04] MEDS: orphenadrine 30 mg/mL Inj 2 mL 60 MG IVP (17:00)
[2022-05-04] MEDS: morphine 4 mg/mL SDV 1 mL 6 MG IVP ×2 (17:00→18:05)
[2022-05-04 17:47] VITALS: BP 144/63; PULSE 68; RESP 22; O2SAT 96
--- NOTE | 2022-05-06 14:51 | DCPLANNER ---
Addendum entered by Glenna Monique 08/26/22 15:29: Patient had an outpatient MRI scheduled - patient did attend appointment Patient had a follow up appointment scheduled with ortho - patient did attend appointment. Addendum entered by Glenna Monique 06/07/22 12:16: Patient has an MRI scheduled for Friday, June 21, 2022 at 10:15 Patient has a follow up appointment scheduled for Saturday, June 25, 2022 at 9:[address] Ag. Clinic will call patient with appointment information. Original Note: Casre manager ems had message to schedule on outpatient MRI for patient. client operations manager faxed signed order to centralized scheduling, who will call patient with appointment information. client operations manager also had message to schedule a follow up appointment for patient with ortho. client operations manager sent patients information to the front office staff at ortho. Patients information will be printed and reviewed. Clinic will call patient with appointment information.
== END 2022-05-04 18:30 | disposition home or self-care (01) ==
PROVIDERS: Emergency Provider Family Medicine; PCP Family Medicine Adult Medicine
DX: M54.16 Radiculopathy, lumbar region (principal); Z79.01 Long term (current) use of anticoagulants; Z79.84 Long term (current) use of oral hypoglycemic drugs; Z79.4 Long term (current) use of insulin; E78.5 Hyperlipidemia, unspecified; I10 Essential (primary) hypertension; E11.40 Type 2 diabetes mellitus with diabetic neuropathy, unspecified
CPT/HCPCS: 72072; 72100; 96374; 96375; 99284; J2270; J2360

== ENCOUNTER → 2022-05-09 14:55 | Outpatient (BNVA) | payer OTHER, SELFPAY | PROVIDERS: PCP Family Medicine Adult Medicine; Visit Provider Orthopaedic Surgery | DX: M43.16 Spondylolisthesis, lumbar region (principal) | CPT/HCPCS: 72120; 99204 ==

== ENCOUNTER → 2022-06-11 12:50 | Outpatient (BNVA) | payer OTHER, SELFPAY | PROVIDERS: PCP Family Medicine Adult Medicine; Visit Provider Family Medicine Adult Medicine | DX: S99.921A Unspecified injury of right foot, initial encounter (principal); X58.XXXA Exposure to other specified factors, initial encounter | CPT/HCPCS: 73660 ==

== ENCOUNTER → 2022-07-17 09:16 | Outpatient (BNVA) | payer OTHER, SELFPAY | PROVIDERS: PCP Family Medicine Adult Medicine; Referring Provider Family Medicine Adult Medicine; Visit Provider Orthopaedic Surgery | DX: M17.11 Unilateral primary osteoarthritis, right knee (principal); E66.01 Morbid (severe) obesity due to excess calories; E11.9 Type 2 diabetes mellitus without complications; Z79.84 Long term (current) use of oral hypoglycemic drugs; Z68.42 Body mass index [BMI] 45.0-49.9, adult | CPT/HCPCS: 73560; 73565 ==

== ENCOUNTER 2022-07-29 09:43 | Outpatient (CLI) | payer OTHER, SELFPAY ==
--- NOTE | 2022-07-29 11:00 | IR_ITS ---
WS: [id number] LUMBAR MYELOGRAM HISTORY: M43.16 - Spondylolisthesis, lumbar region COMPARISON: None available. FLUOROSCOPY TIME: 1min [id number] # of spot films: 5 Procedure, risks and complications were explained to the patient. Risks including bleeding, infection , headaches, allergic reaction and seizures. Consent has been obtained. With the patient in prone position the skin over the lumbar region is cleansed with ChloraPrep and an esthetized with lidocaine. 22-gauge spinal needle is inserted into the thecal sac at the appropriate level determined by fluoroscopy. Omnipaque 240; 12 ml is injected slowly under fluoroscopy with no co mplications. Needle bevel is perpendicular to the longitudinal fibers of the dura. Stylet is reinsert ed prior to removal of the needle. Patient tolerated the procedure well. Patient will proceed to CT f or further evaluation. L4 anterolisthesis by 2.6 mm. Moderate disc space narrowing and vacuum disc phenomenon at L4-5 and L5 -S1 with facet joint arthritis. No fractures. Nerve roots exiting without difficulty or impingement. IR/IR myelogram [place] lumbar [id number] IMPRESSION: 1. Uncomplicated lumbar spine injection. 2. L4 anterolisthesis by 2.6 mm. 3. Degenerative disc disease at L4-5 and L5-S1.
--- NOTE | 2022-07-29 11:00 | CT_ITS ---
WS: [id number] CT MYELOGRAM LUMBAR SPINE HISTORY: M43.16 - Spondylolisthesis, lumbar region TECHNIQUE: Contiguous 2.5 mm axial imaging performed from T12 through the mid sacral level. Bone and soft tissue windows reviewed. Sagittal and coronal reformats are submitted and reviewed. DLP: 1963.[address] scans at [facility] use at least one of these dose optimization techniques: automated e xposure control; mA and/or kV adjustment per patient size (includes targeted exams where dose is matc hed to clinical indication); or iterative reconstruction. COMPARISON: None available. Very good contrast enhancement throughout the thecal sac. L4 anterolisthesis by 3 mm. Vacuum disc phe nomenon and disc space narrowing at L4-5 and L5-S1. No fractures. No pars defects are evident. T11-12: Annular disc bulging and osteophytic ridging. There is disc contacting and causing very sligh t deformity of the ventral thecal sac and cord. L1-L2: No stenosis. L2-L3: No stenosis. L3-L4: Mild disc bulging with a tiny central disc protrusion. No stenosis. L4-L5: Diffuse annular disc bulging asymmetric to the LEFT. LEFT foraminal disc protrusion and osteop hytes contribute to moderate LEFT foraminal stenosis. There is disc and osteophyte contacts on the LE FT L4 and L5 nerve roots. Very minimal RIGHT foraminal narrowing. Moderate facet joint arthritis. Fac et sclerosis and widening of the joints. Mild central stenosis. L5-S1: Diffuse annular disc bulging and mild osteophytic ridging. Very mild foraminal narrowing. Scattered plaque in the abdominal aorta. CT/CT lumbar spine w con [id number] IMPRESSION: 1. No lumbar spine fracture. 2. Grade 1 anterolisthesis of L4. 3. Mild central stenosis at L4-5 with moderate facet joint arthritis. 4. Asymmetric disc bulging and osteophytic ridging at L4-5 with disc and osteo phyte contacting the LEFT L4 and L5 nerve roots. 5. Mild foraminal narrowing at L5-S1. 6. Disc bulging and osteophytic ridging at T11-12 with mild deformity of the v entral cord.
[2022-07-29] MEDS: iohexol 240 mg/mL 50 mL Btl INTRATHECA (11:02)
== END 2022-07-29 09:44 | disposition home or self-care (01) ==
LOC: RAD 09:44
PROVIDERS: PCP Family Medicine Adult Medicine; Visit Provider Orthopaedic Surgery
DX: M43.16 Spondylolisthesis, lumbar region (principal); M51.36 Other intervertebral disc degeneration, lumbar region; M51.37 Other intervertebral disc degeneration, lumbosacral region; M48.061 Spinal stenosis, lumbar region without neurogenic claudication; M51.24 Other intervertebral disc displacement, thoracic region
CPT/HCPCS: 62304; 72132; 80053; 80061; 83036; 84443; 85025; Q9966

== ENCOUNTER 2022-09-03 15:52 | Outpatient (CLI) | payer OTHER, SELFPAY ==
--- NOTE | 2022-09-03 16:00 | CT_ITS ---
WS: [id number] CT RIGHT knee, noncontrast HISTORY: pre op planning TECHNIQUE: Protocol for [facility] total knee replacement has been obtained. This includes axial imaging th rough the RIGHT hip, RIGHT knee and RIGHT ankle. DLP: 994.41 mGy.cm COMPARISON: Radiograph 07/17/2022 Mild narrowing of the RIGHT hip joint. No destructive bone lesion. Mild motion artifact. Mild to moderate tricompartment joint space narrowing and osteoarthritis. Slight lateral subluxation patella. No destructive bone lesions. No significant joint effusion. Mild narrowing of the tibiotalar joint. No destructive bone lesion. CT/CT knee RT [facility] IMPRESSION: CT imaging provided for [facility] robotic total knee replacement.
== END 2022-09-03 15:53 | disposition home or self-care (01) ==
LOC: RAD 15:53
PROVIDERS: PCP Family Medicine Adult Medicine; Visit Provider Orthopaedic Surgery
DX: Z01.818 Encounter for other preprocedural examination (principal); M17.11 Unilateral primary osteoarthritis, right knee
CPT/HCPCS: 73700

== ENCOUNTER 2022-09-23 17:05 | Observation (INO) | payer OTHER, SELFPAY ==
[2022-09-17 09:51] VITALS: BMI 44.9
[2022-09-17 10:38] LABS: Basophils # 0.1 10^3/uL (0.0-0.1); Basophils % 1.1 %; Eosinophils # 0.3 10^3/uL (0.0-0.8); Eosinophils % 3.3 %; Hematocrit 38.9 % (37.0-47.0); Hemoglobin 12.4 g/dL (11.5-15.3); Lymphocytes # 2.7 10^3/uL (0.8-4.8); Mean Corpuscular HGB Conc 31.9 g/dL (30.0-36.0); Mean Corpuscular Hemoglobin 29.3 pg (28.0-34.0); Mean Platelet Volume 9.7 fL (7.4-10.4); Monocytes # 0.5 10^3/uL (0.2-0.9); Monocytes % 6.4 %; Neutrophils % 54.8 %; Nucleated Red Blood Cells % 0 %; Red Blood Count 4.23 10^6/uL (4.1-5.3); Red Cell Distribution Width 13.5 % (12.1-15.1); White Blood Count 7.9 10^3/uL (4.0-10.0)
[2022-09-17 10:56] LABS: Anion Gap 16.2 (5-19); Blood Urea Nitrogen 18 mg/dL (8-23); Calcium 9.9 mg/dL (8.5-10.5); Carbon Dioxide 22 mmol/L (22-29); Chloride 102 mmol/L (98-107); Glomerular Filtration Rate 85.1 mL/min (90-130); Glucose 135 mg/dL (65-115); Osmolality Calculated 286 mOsm/kg (285-295); Potassium 4.2 mmol/L (3.5-5.1); Sodium 136 mmol/L (136-145)
[2022-09-17 10:59] LABS: Slide Review Slide Review Perform
[2022-09-17 11:00] LABS: Platelet Count 434 10^3/cmm (130-400)
--- NOTE | 2022-09-17 14:10 | ANES.PREANE2 ---
Pre-Anesthetic Assessment Height/Weight: Height 1.74 m Weight 136.078 kg Operation Date: 09/23/22 10:10 Proposed Procedures p right TKA caitlin/ [id number] M17.11(Right) - Sanket Vidales MD Familial anesthetic complications: none Was Beta Harpreet taken within 24 hours: Yes Was Clonidine taken within 24 hours: N/A Social No alcohol and No tobacco Exam alert, oriented x 3, clear to auscultation bilaterally and regular rate & rhythm Airway Submandibular: within normal limits Cervical ROM: within normal limits Mallampati: Class II Dentition: full Pulmonary Asthma CV/HEM Hypertension PE--Eliquis, left vent hypertrophy Metabolic Diabetes Mellitus, Hyperlipidemia and Morbid Obesity Neuropsych Neuropathy Anesthetic Plan ASA status: 3 Anesthesia: Regional (specify below) (SAB with adductor blk) Medications/Allergies Home Medications Medication Instructions Recorded Confirmed Last Taken Type budesonide 0.5 mg/2 mL suspension 0.5 mg (2 mL) inhalation TID PRN 07/02/21 09/17/22 Unknown Rx for nebulization SOB or wheezing #180 mL fluticasone 250 mcg-salmeterol 50 1 inh inhalation BID PRN unknown 08/01/21 09/17/22 Unknown History mcg/dose blistr powdr for inhalation (Advair Diskus) nitroglycerin 0.4 mg sublingual 0.4 mg sublingual Q5M PRN chest 08/01/21 09/17/22 Unknown Rx tablet (Nitrostat) pain #25 tabs Vitamin D3 1 cap PO DAILY 10/03/21 09/17/22 Unknown History folic acid 1 tab PO DAILY 10/03/21 09/17/22 Unknown History multivitamin 1 tab PO DAILY 10/03/21 09/17/22 Unknown History isosorbide mononitrate 30 mg 15 mg PO BID #90 tabs 01/15/22 09/17/22 Unknown Rx tablet,extended release 24 hr valsartan 320 0.5 tab PO BID #30 tabs 02/25/22 09/17/22 Unknown Rx mg-hydrochlorothiazide 25 mg tablet zolpidem 10 mg tablet 10 mg PO .qhs PRN insomnia 30 days 06/20/22 09/17/22 Unknown Rx #60 tabs celecoxib 200 mg capsule 200 mg PO BID PRN pain 90 days 06/28/22 09/17/22 Unknown Rx #180 caps ondansetron 8 mg oral soluble film 8 mg PO Q12H PRN nausea and 07/10/22 09/17/22 Unknown Rx vomiting #60 ea amitriptyline 50 mg tablet 50 mg PO BEDTIME chronic pain & 07/11/22 09/17/22 Unknown Rx sleep #30 tabs insulin glargine U-300 conc 300 30 unit SUBCUT DAILY PRN Insulin 07/11/22 09/17/22 Unknown History unit/mL (3 mL) subcutaneous pen for diabetes tizanidine 4 mg capsule 4 mg PO Q6H PRN muscle spasticity 07/11/22 09/17/22 Unknown Rx #90 caps metformin 1,000 mg tablet See Rx Instructions .Route 07/16/22 09/17/22 Unknown Rx .COMPLEX #180 tabs apixaban 5 mg tablet (Eliquis) See Rx Instructions .Route 07/17/22 09/17/22 Unknown Rx .COMPLEX #180 tabs tramadol 50 mg tablet 100 mg PO Q8H PRN pain, severe 08/08/22 09/17/22 Unknown Rx #180 tabs montelukast 10 mg tablet 10 mg PO DAILY #90 tabs 08/16/22 09/17/22 Unknown Rx carvedilol 12.5 mg tablet 18.75 mg PO BID #270 tabs 08/19/22 09/17/22 Unknown Rx lovastatin 20 mg tablet 20 mg PO DAILY #90 tabs 08/20/22 09/17/22 Unknown Rx blood sugar diagnostic (OneTouch #100 ea 09/10/22 Unknown Rx Verio test strips) Allergies Allergy/AdvReac Type Severity Reaction Status Date / Time erythromycin base Allergy Unknown Unresponsiv Verified 09/17/22 09:29 e promethazine [From Phenergan] Allergy ADR-Nausea Verified 09/17/22 09:29 [facility] Anesthesia Medical History Acromial process of scapula fracture Asthma Breast lump on left side at 6 o'clock position Chronic generalized abdominal pain COVID-19 Positive test for COVID-19 05/17/2021 Diabetic neuropathy Diverticulitis Diverticulosis large intestine w/o perforation or abscess w/o bleeding Fall History of chronic pain Hx of pulmonary embolus Hyperlipidemia Hypertension Injury of right toe Insomnia LVH (left ventricular hypertrophy) Morbid obesity with body mass index of 45.0-49.9 in adult Osteoarthritis (arthritis due to wear and tear of joints) thoracic and Lumbar spine, multiple joints Pain of right knee after injury Primary localized osteoarthritis of knees, bilateral Right knee buckling Type 2 diabetes mellitus Surgical History Hx of right knee surgery 30 yrs ago [facility] Family History Other Cancer Diabetes Hyperlipidemia Hypertension LVH (left ventricular hypertrophy) Stroke Social History Smoking and tobacco status: never smoked Smoking risk assessment/counseling performed?: No Alcohol intake: never Desire information about alcohol rehabilitation?: No Counseling given: No Desire information about substance/drug rehabilitation?: No Counseling given: No Caregiver/support person: Yes Lives independently: Yes Household members: spouse Marital status: Number of children: 1 Number of grandchildren: 2 Current occupational status: retired Data Anesthesia 09/17/22 10:10 09/17/22 10:10 Short CBC 09/17/22 Range/Units 10:10 WBC 7.9 (4.0-10.0) 10^3/uL Hgb 12.4 (11.5-15.3) g/dL Hct 38.9 (37.0-47.0) % MCV 92.0 (81-99) fl Plt Count 434 H (130-400) 10^3/cmm Neut % (Auto) 54.8 % Neut # (Auto) 4.30 (1.8-7.7) 10^3/uL BMP 09/17/22 10:10 Sodium 136 Potassium 4.2 Chloride 102 Carbon Dioxide 22 BUN 18 Creatinine 0.7 Glucose 135 H Calcium 9.9 Cardiac Studies: Echocardiogram 09/19/21 Stress Echocardiogram 11/19/21
[2022-09-23] VITALS (15 sets, daily range): BP systolic 130–153; BP diastolic 57–83; PULSE 67–80; RESP 14–18; TEMP 36.1–36.7; O2SAT 92–99
[2022-09-23] MEDS: gabapentin 300 mg Capsule PO ×2 (11:40→19:13)
[2022-09-23] MEDS: sodium chloride 0.9% 1,000 ML 30 ML IV (11:40)
[2022-09-23] MEDS: oxyCODONE 20 mg ER (12 HR) Tablet PO (11:40)
[2022-09-23] MEDS: acetaminophen 500 mg Tablet 1000 MG PO ×2 (11:41→19:14)
--- NOTE | 2022-09-23 12:08 | P.ANESUD_ITS ---
Pre-Anesthetic Update Pre-Anesthetic Assessment: Date of Surgery/Procedure: 09/23/22 Preop Theresa gnosis: Osteoarthritis right knee Proposed Procedure: Operation Date: 09/23/22 13:00 Proposed Procedures p right TKA [facility]/ 54913 M17.11(Right) - Sanket Vidales MD Any changes to Pre-Anesthetic Assessment?: No Last Intake: Intake Last Liquid Date 09/22/22 Last Liquid Time 23:30 Last Solid Date 09/22/22 Last Solid Time 23:30 Vitals: Temperature 97 F L 09/23/22 11:26 Temperature Source Temporal Artery S can 09/23/22 11:26 Pulse Rate 67 09/23/22 11:26 Respiratory Rate 18 09/23/22 11:40 Respiratory Effort 09/23/22 11:40 Respiratory Depth Normal 09/23/22 11:40 Respiratory Patter n 09/23/22 11:40 Blood Pressure 134/82 09/23/22 11:26 Blood Pressure Brittany n 99 09/23/22 11:26 Pulse Oximetry 98 09/23/22 11:40 Oxygen Delivery Me thod 09/23/22 11:38 Exam: Pre-Anes Outpt Exam: alert, oriented x 3, clear to auscultation bilaterally and regular rate & rhythm Cardiac Studies: Echocardiogram 09/19/21 Stress Echocardiogram 11/19/21
--- NOTE | 2022-09-23 12:08 | ANES.PROC ---
Anesthesia Procedures Procedure/Date: 09/23/22 Nerve Block ^: Nerve Block 1: Main Anesthesia: spinal anesthesia block Time Out Performed: Yes Consent: requested by attending/covering physician, from patient, from other, risks and benefits reviewed and patient agrees to proceed Nerve block location: adductor canal (R) Anesthesia monitors applied: pulse oximetry, EKG, BP cuff and oxygen Nerve block position: supine Anesthetic Used: ropivicaine 0.5% and with decadron (4 mg) Ultrasound used to: recognize landmarks and visualize and ID femerol nerve Nerve Stimulator Used?: No Interscalene/Femoral BLK: 4 stimuplex 21 g needle used for position and inplane approach, visualize local anesthetic spread and no vascular puncture identified Injection: neg aspiration of heme Patient Tolerated Procedure: well and no complications Complications: none
[2022-09-23] MEDS: CELEcoxib 200 mg Capsule 400 MG PO (13:53)
--- NOTE | 2022-09-23 13:56 | W.PM.OPSFHP ---
Same Day Surgery H&P Indication for Procedure/HPI DATE OF PROCEDURE: September 23, 2022 CHIEF COMPLAINT/INDICATIONFOR SURGICAL PROCEDURE: Osteoarthritis right knee here for right total knee arthroplasty PREOP DIAGNOSIS: Osteoarthritis right knee PLANNED PROCEDURE: Operation Date: 09/23/22 13:00 Proposed Procedures p right [facility]/ 88903 M17.11(Right) - Sanket Vidales MD The patient is a 62-year-old female with progressive pain in the right knee. She describes a long history of problems with her knee.? She describes a anterior cruciate ligament tear 30 years ago.? She was treated arthroscopically debridement but states she always had problems.? She has been bothered by feelings of instability for years and progressive pain.? They moved here from [place] 2 years ago.? She states in [place] they are seeing a pain clinic with her getting corticosteroid injections and viscosupplementation with only limited improvement.? She states in [place] she was able to use an aboveground swimming pool and lose some weight.? She states her knee has been more more of a problem.? Not only is her severe pain with virtually any significant walking she has feelings of instability.? She describes on several occasions her knee giving out.? German states that on 07/08/22 she was walking into her house when her dog ran into her causing a hyperextending injury. She was eventually evaluated by her PCP after her pain failed to improve. She has been wearing an immobilizer during the day for protection. She? has been evaluated by Dr. Feliciano approximately one year ago who refused injections or any surgical discussion. Medications/Allergies* Home Medications Medication Instructions Recorded Confirmed Type fluticasone 250 mcg-salmeterol 50 1 inh inhalation BID PRN unknown 08/01/21 09/23/22 History mcg/dose blistr powdr for inhalation (Advair Diskus) Vitamin D3 1 cap PO DAILY 10/03/21 09/23/22 History folic acid 1 tab PO DAILY 10/03/21 09/23/22 History multivitamin 1 tab PO DAILY 10/03/21 09/23/22 History insulin glargine U-300 conc 300 30 unit SUBCUT DAILY PRN Insulin 07/11/22 09/23/22 History unit/mL (3 mL) subcutaneous pen for diabetes Allergies/Adverse Reactions Allergy/AdvReac Type Severity Reaction Status Date / Time erythromycin base Allergy Unknown Unresponsiv Verified 09/23/22 11:27 e promethazine [From Phenergan] Allergy ADR-Nausea Verified 09/23/22 11:27 Current Medications: Generic Name Dose Route Start Last Admin Trade Name Freq PRN Reason Stop Dose Admin Sodium Chloride 1,000 mls @ 30 mls/hr 09/23/22 11:15 09/23/22 11:40 Sodium Chloride 0.9% IV 09/24/22 11:14 30 mls/hr .Q24H CRISTAL Administration Pertinent History/Comorbid Conditions* Medical History (Updated 07/11/22 @ 08:24 by Sim Maddox MD) Acromial process of scapula fracture Asthma Breast lump on left side at 6 o'clock position Chronic generalized abdominal pain COVID-19 Positive test for COVID-19 05/17/2021 Diabetic neuropathy Diverticulitis Diverticulosis large intestine w/o perforation or abscess w/o bleeding Fall History of chronic pain Hx of pulmonary embolus Hyperlipidemia Hypertension Injury of right toe Insomnia LVH (left ventricular hypertrophy) Morbid obesity with body mass index of 45.0-49.9 in adult Osteoarthritis (arthritis due to wear and tear of joints) thoracic and Lumbar spine, multiple joints Pain of right knee after injury Primary localized osteoarthritis of knees, bilateral Right knee buckling Type 2 diabetes mellitus Surgical History (Updated 07/24/21 @ 09:06 by Sim Maddox MD) Hx of right knee surgery 30 yrs ago [facility] Family History (Updated 08/01/21 @ 12:39 by Rae Castañeda RN) Diabetes Hyperlipidemia LVH (left ventricular hypertrophy) Cancer Hypertension Stroke Social History Smoking and tobacco status: never smoked Smoking risk assessment/counseling performed?: No Alcohol intake: never Desire information about alcohol rehabilitation?: No Counseling given: No Desire information about substance/drug rehabilitation?: No Counseling given: No Caregiver/support person: Yes Lives independently: Yes Household members: spouse Marital status: Number of children: 1 Number of grandchildren: 2 Current occupational status: retired Pertinent Exam Findings alert, oriented x 3, clear to auscultation bilaterally and regular rate & rhythm KNEE [right] RANGE OF MOTION: ? ? ? LEFT LIMB ? Extention:? [0] ? Flexion: 120 degrees Tenderness over her medial and lateral joint line She has severe pain with Dionicio I cannot appreciate any instability.? Her collateral ligaments are stable. MOTOR: Strong quadriceps hamstrings tibialis anterior and extensor houses longus strength SENSATION: Diminished in a stocking distribution in both feet. Recommendations Surgery/Procedure today Other Plans: Seen with right total knee arthroplasty today Coding Level of Care Code Acute Bench Shear Operator for Beck Barillas
[2022-09-23 14:02] LABS: Glucose Point of Care 106 mg/dL (70-110)
[2022-09-23] MEDS: ceFAZolin 2,000 MG in sodium chloride 0.9% (plus) 50 ML 100 MG IV ×2 (15:03→22:12)
[2022-09-23] MEDS: tranexamic acid 1,000 mg/10mL SDV 1000 MG IV (15:25)
[2022-09-23] MEDS: ketorolac 30 mg/mL INJ XX (15:59)
[2022-09-23] MEDS: tranexamic acid 1,000 mg/10mL SDV 1000 MG XX (16:00)
[2022-09-23] MEDS: EPINEPHrine 1 mg/mL INJ XX (16:00)
[2022-09-23] MEDS: sodium chloride 0.9% 100 mL Bag XX (16:02)
--- NOTE | 2022-09-23 17:02 | XRR_ITS ---
PROCEDURE INFORMATION: Exam: XR Right Knee Exam date and time: 09/23/2022 5:25 PM Age: 62 years old Clinical indication: Device placement; Joint replacement hardware; Additional info: Right total knee arthroplasty TECHNIQUE: Imaging protocol: Radiologic exam of the Right knee. Views: 1 or 2 views. COMPARISON: No relevant prior studies available. FINDINGS: Bones/joints: Patient has had a previous right total knee arthroplasty. No evidence for loosening of surgical hardware. No dislocation. Air in the right knee joint space and surrounding soft tissues, likely postsurgical in nature. No acute fracture. No dislocation. Normal bone mineralization. No joint effusion. Joint spaces are maintained. Soft tissues: No soft tissue swelling. No radiopaque foreign body. XR/XR knee RT 1-2V [id number] IMPRESSION: 1. Status post right total knee arthroplasty without evidence for complication. 2. Air in the right knee joint space and surrounding soft tissues, likely postsurgical in nature.
--- NOTE | 2022-09-23 17:03 | PM.OP ---
Operative Report Date of procedure: September 23, 2022 Pre-op diagnosis: Preop Diagnosis Osteoarthritis right knee Post-op diagnosis: same Post-op diagnosis: Same Post-op findings: Same Procedure done: Right total knee arthroplasty Implants: Sanjay Triathalon total knee arthroplasty components were used includin) Size 4 triathalon cruciate retaining femoral component 2) Size 4 Tritanium tibial component 3) Size 4/9 mm thickness CS tibial bearing insert Pathology: none sent Surgeon: Sanket Vidales Cooler Conveyor Loader: Bryant Medina Cooler Conveyor Loader: The nurse practitioner the nurse practitioner assisted with critical portions of the case including positioning, draping, exposure, component implantation, closure and dressing application and is present through the entirety of the case. Anesthesia: Nerve Block (Spinal, adductor canal block) Estimated blood loss (mL): 100 Findings: The patient eburnated bone over the medial femoral condyle, lateral femoral condyle and medial tibial plateau. There was minimal patellar r chondromalacia. The patella tracked well in the component probe Condition: stable Disposition: PACU Procedure: The patient was taken to the operating room. Patient was given 1 g of tranexamic acid and 2 g of Ancef. The above anesthesia provided by the anesthesia service. A timeout was performed. The patient was prepped and draped in the usual fashion with the lower extremity exposed. A anterior incision was made, midline, from a point proximal to the patella to the distal tibial tubercle. The knee was entered through a medial parapatellar approach. The patella could be displaced laterally and the knee flexed. The patellar fat pad was resected to provide better visibility. Retractors were placed medially and laterally adjacent to the tibial plateau. At a point approximately 8 cm above the patella, 2 small incisions were made with a scalpel blade and 2 long threaded pins were placed into the anterior medial femur engaging both cortices. The femoral arrays were placed over these pins and secured. At a point 8 cm distal to the tibial tubercle. 2 shorter bicortical threaded pins were placed across the anterior medial tibia and the tibial arrays placed. A checkpoint was made just proximal and medial to the medial femoral condyle and just medial to the tibial plateau. Small osteotomes were placed in the joint in both flexion and extension to determine ligamentous laxity. The femoral component was raised slightly to match flexion and extension gaps at 18 mm. The [employer] robot was then introduced to the field and the femur and tibia cut in accordance with our plan. he [employer] Fastseal was then used to provide hemostasis, particularly about the posterior capsule. A trial with the above components provided excellent stability and full range of motion. The femur was then prepared for the femoral pegs of the component in the tibia for the tibial component. The femur and tibia were then press-fit into place. An osteotome was used to remove the lateral 8 mm of the patella to minimize chances of later impingement. A neurectomy was accomplished circumferentially about the patella with electrocautery and lateral osteophytes removed. Surfaces were cleaned with a gentamicin solution. The femur and tibia were then press-fit into place. The posterior capsule and collateral ligaments were then injected with a solution of 100 mL of 0.2% ropivacaine, 1 mL of a 1:1000 epinephrine solution, 30 mg of Toradol, and 1 g of tranexamic acid. Final polyethylene component was then snapped into place into the tibia. The extensor retinaculum was closed with a running 1 Stratafix interrupted 1 Ethibond. The subcutaneous tissues were closed with 2-0 Vicryl and the skin was closed with a running 4-0 Stratafix. The wound was covered with a Dermabond Prineo dressing. It was covered with 4xrs and a compressive Tubigauze was applied. The patient was taken to recovery room in stable condition.
--- NOTE | 2022-09-23 18:30 | ANE.PACU2 ---
Inpatient post-anesthesia follow up: Airway intact: Yes Vital signs: Temperature 97.9 F Pulse Rate 74 Respiratory Rate 17 Blood Pressure 119/55 Pulse Oximetry 95 Oxygen Delivery Me thod Room Air Oxygen Flow Rate 6 Fraction of Inspir ed Oxygen Hydration adequate: Yes Nausea and vomiting: No Pain level: 1 Mental status: Baseline
[2022-09-23] MEDS: CELEcoxib 200 mg Capsule PO (19:12)
[2022-09-23] MEDS: carvedilol 6.25 mg Tablet 18.75 MG PO (19:12)
[2022-09-23] MEDS: sennosides-docusate Tablet 2 TAB PO (19:14)
[2022-09-23] MEDS: isosorbide mononitrate ER 30 mg Tablet 15 MG PO (19:14)
[2022-09-23] MEDS: oxyCODONE 5 mg IR Tab/Cap PO (19:15)
[2022-09-23] MEDS: sodium chloride 0.9% 1,000 ML 100 ML IV (19:27)
[2022-09-23] MEDS: albuterol 2.5 mg/3 mL Neb INHALATION (21:58)
[2022-09-23] MEDS: amitriptyline 25 mg Tablet 50 MG PO (22:12)
[2022-09-23 22:23] LABS: Glucose Point of Care 224 mg/dL (70-110)
[2022-09-23] MEDS: tizanidine 4 mg Tablet PO (22:47)
[2022-09-23] MEDS: zolpidem 5 mg Tablet 10 MG PO (22:47)
--- NOTE | 2022-09-23 23:45 | PC.NURSE ---
Pt blood glucose was taken is was 224, insulin was not due until 1/[address] Umana via VOLATE and let him know the blood glucose level, he said to recheck in an hour and i told him the pt said if we are not going to give her insulin then she would have her bring hers in so she could medicate herself. Pt brought an insulin pen in and patient administer 12 units of insulin to herself at approximately 23:00. Pt brought insulin to a nurse at the nurses station and said it needed to be put in the fridge for his . Insulin pen is in the [facility] fridge with patient data processing control clerk it.
[2022-09-24] VITALS (10 sets, daily range): BP systolic 119–140; BP diastolic 55–72; PULSE 67–74; RESP 17–18; TEMP 36.5–36.8; O2SAT 94–100
[2022-09-24] MEDS: oxyCODONE 5 mg IR Tab/Cap PO ×3 (01:10→12:09)
[2022-09-24] MEDS: ondansetron 2 mg/ML SDV 2 mL 4 MG IVP (01:10)
[2022-09-24 01:27] LABS: Glucose Point of Care 179 mg/dL (70-110)
[2022-09-24] MEDS: acetaminophen 500 mg Tablet 1000 MG PO ×2 (03:17→11:54)
[2022-09-24] MEDS: sodium chloride 0.9% 1,000 ML 100 ML IV (03:18)
[2022-09-24] MEDS: CELEcoxib 200 mg Capsule PO (06:08)
[2022-09-24] MEDS: ceFAZolin 2,000 MG in sodium chloride 0.9% (plus) 50 ML 100 MG IV (06:08)
[2022-09-24 06:22] LABS: Hemoglobin 11.2 g/dL (11.5-15.3)
[2022-09-24 06:36] LABS: Glucose Point of Care 137 mg/dL (70-110)
[2022-09-24] MEDS: albuterol 2.5 mg/3 mL Neb INHALATION (07:57)
[2022-09-24] MEDS: budesonide 0.5 mg/2 mL Neb INHALATION (07:57)
[2022-09-24] MEDS: sennosides-docusate Tablet 2 TAB PO (08:20)
[2022-09-24] MEDS: atorvastatin 40 mg Tablet 20 MG PO (08:20)
[2022-09-24] MEDS: carvedilol 6.25 mg Tablet 18.75 MG PO (08:21)
[2022-09-24] MEDS: hydroCHLOROthiazide 25 mg Tablet 12.5 MG PO (08:21)
[2022-09-24] MEDS: gabapentin 300 mg Capsule PO (08:22)
[2022-09-24] MEDS: montelukast sodium 10 mg Tablet PO (08:22)
[2022-09-24] MEDS: folic acid 1 mg Tablet PO (08:22)
[2022-09-24] MEDS: isosorbide mononitrate ER 30 mg Tablet 15 MG PO (08:22)
[2022-09-24] MEDS: apixaban 5 mg Tablet PO (08:22)
[2022-09-24] MEDS: losartan 50 mg Tablet PO (08:33)
--- NOTE | 2022-09-24 10:58 | PC.CHAP ---
Pastoral Care Encounter/Spiritual Assessment Type of Contact [] Declined lawn mower sharpener visit [] Patient/Family/Request visit [] Outpatient visit [] Follow-up visit [] Physician referral [] Code/Alert [x] Routine visit [] Staff referral [] Actively dying [] Patient sleeping [] Family support [] [] Out of room [] Palliative care [] [] Receiving care in room [] Pre-surgical visit [] Trauma [] Long length of stay [] ICU visit [] Other: Relational/Emotional Strength [x] Patient feels connected with others/family/visitors/staff [] Distress [] Loneliness/isolation [] Abandonment Spirituality of Patient [x] Person of Elvira [] Attends Methodist of their Elvira x[] Believes in Prayer [] Reads Bible or Restorationism materials [] There are Spiritual issues to be addressed Floatlight Powder Mixer Interventions x[] Prayer [x] Active listening [x] Non-anxious presence x[] Spiritual/emotional support [] Crisis/trauma care [] Spiritual counseling [] Bereavement support [] Provided bereavement packet [] Provided Bible/devotional materials [] Provided toy/stuffed animal, coloring book to patient or family member [] Provided Communion [] Anointing/[place] [] Salvation [x Impact on Illness or Injury [] Angry [] Fearful [] Anxious [] Often cries [] Exhaustion [] Unable to work [] Unable to attend holiness [] Unable to walk/stand [] Unable to read [] Unable to drive [] Unable to eat/drink [] Unable to sleep [] Unable to be with family [] Patient intubated [] Other: Summary patient pain yemial alessio 5 Time spent with patient 10 min
[2022-09-24 11:51] LABS: Glucose Point of Care 175 mg/dL (70-110)
[2022-09-24] MEDS: insulin lispro 100 unit/1 mL SUBCUT (12:07)
[2022-09-24] MEDS: tizanidine 4 mg Tablet PO (12:09)
[2022-09-24] MEDS: morphine 4 mg/mL SDV 1 mL 2 MG IVP (12:16)
--- NOTE | 2022-09-24 13:51 | PM.DCS ---
Discharge Providers Date of Admission: 09/23/22 17:05 Date of Discharge: September 24, 2022 Attending Provider at Admission: Sanket Kasper MD Attending Provider at Discharge: Sanket Kasper MD Primary Care Provider: Sim Maddox MD Reason for Visit Reason for Visit: M17.11 Hospital Course Hospital Course The patient tolerated surgery well. They remained hemodynamically stable. They was wound on her Eliquis and [] for DVT prophylaxis. The patient was mobilized with therapy beginning the day after surgery and by the first postoperative day independent with the walker. As the pain was adequately controlled and they were fully mobile they were discharged home. Physical Exam Narrative: On the day of discharge the knee incision was clean. They had no drainage. There is minimal swelling in the thigh and knee and the calf. No distal neurovascular deficits were noted Discharge Data Studies Completed and Pending Completed Studies During Hospitalization Category Date Time Status XR knee RT 1-2V [id number] Routine Exams 09/23/22 17:02 Completed Radiology Impressions Knee X-Ray 09/23/22 17:02 IMPRESSION: 1. Status post right total knee arthroplasty without evidence for complication. 2. Air in the right knee joint space and surrounding soft tissues, likely postsurgical in nature. Laboratory Results WBC 7.9 10^3/uL (4.0-10.0) 09/17/22 10:10 RBC 4.23 10^6/uL (4.1-5.3) 09/17/22 10:10 Hgb 11.2 g/dL (11.5-15.3) L 09/24/22 06:03 Hct 38.9 % (37.0-47.0) 09/17/22 10:10 MCV 92.0 fl (81-99) 09/17/22 10:10 MCH 29.3 pg (28.0-34.0) 09/17/22 10:10 MCHC 31.9 g/dL (30.0-36.0) 09/17/22 10:10 RDW 13.5 % (12.1-15.1) 09/17/22 10:10 Plt Count 434 10^3/cmm (130-400) H 09/17/22 10:10 MPV 9.7 fL (7.4-10.4) 09/17/22 10:10 Neut % (Auto) 54.8 % 09/17/22 10:10 Lymph % (Auto) 34.0 % 09/17/22 10:10 [place] % (Auto) 6.4 % 09/17/22 10:10 Eos % (Auto) 3.3 % 09/17/22 10:10 Baso % (Auto) 1.1 % 09/17/22 10:10 Neut # (Auto) 4.30 10^3/uL (1.8-7.7) 09/17/22 10:10 Lymph # (Auto) 2.7 10^3/uL (0.8-4.8) 09/17/22 10:10 [place] # (Auto) 0.5 10^3/uL (0.2-0.9) 09/17/22 10:10 Eos # (Auto) 0.3 10^3/uL (0.0-0.8) 09/17/22 10:10 Baso # (Auto) 0.1 10^3/uL (0.0-0.1) 09/17/22 10:10 Nucleated RBC % (auto) 0 % 09/17/22 10:10 Nucleated RBCs # 0.0 /100WBC 09/17/22 10:10 Sodium 136 mmol/L (136-145) 09/17/22 10:10 Potassium 4.2 mmol/L (3.5-5.1) 09/17/22 10:10 Chloride 102 mmol/L (98-107) 09/17/22 10:10 Carbon Dioxide 22 mmol/L (22-29) 09/17/22 10:10 Anion Gap 16.2 (5-19) 09/17/22 10:10 BUN 18 mg/dL (8-23) 09/17/22 10:10 Creatinine 0.7 mg/dL (0.5-0.9) 09/17/22 10:10 GFR Calculation 85.1 mL/min (90-130) L 09/17/22 10:10 Glucose 135 mg/dL (65-115) H 09/17/22 10:10 POC Glucose 175 mg/dL (70-110) H 09/24/22 11:47 Calculated Osmolality 286 mOsm/kg (285-295) 09/17/22 10:10 Calcium 9.9 mg/dL (8.5-10.5) 09/17/22 10:10 Vitals Last Vital Signs Temp 98.3 F 09/24/22 11:56 Pulse 67 09/24/22 11:56 Resp 18 09/24/22 12:16 BP 125/71 09/24/22 11:56 Pulse Ox 98 09/24/22 12:16 O2 Del Method 09/24/22 11:56 O2 Flow Rate 6 09/24/22 08:00 Discharge Plan Discharge Patient Disposition: Home Health Service Condition: Stable Prescriptions: New oxycodone 5 mg Tablet 5 mg PO Q4H PRN (Reason: Moderate Pain) 7 Days Qty: 30 0RF acetaminophen 500 mg Tablet 1,000 mg PO Q8H 14 Days Qty: 84 0RF gabapentin 300 mg Capsule 300 mg PO BID 7 Days Qty: 14 0RF Continued budesonide 0.5 mg/2 mL suspension for nebulization 0.5 mg inhalation TID PRN (Reason: SOB or wheezing) Qty: 180 2RF fluticasone propion-salmeterol [Advair Diskus] 250-50 mcg/dose blister with device 1 inh inhalation BID PRN (Reason: unknown) nitroglycerin [Nitrostat] 0.4 mg tablet, sublingual 0.4 mg sublingual Q5M PRN (Reason: chest pain) Qty: 25 3RF Rx Instructions: do not exceed 3 doses per episode insulin glargine U-300 conc 300 unit/mL (3 mL) insulin pen 30 unit SUBCUT DAILY PRN (Reason: Insulin for diabetes) Rx Instructions: Sliding scale for her daily doses amitriptyline 50 mg tablet 50 mg PO BEDTIME Qty: 30 3RF tizanidine 4 mg capsule 4 mg PO Q6H PRN (Reason: muscle spasticity) Qty: 90 1RF Rx Instructions: do not exceed 3 doses per 24 hrs isosorbide mononitrate 30 mg tablet extended release 24 hr 15 mg PO BID Qty: 90 2RF valsartan-hydrochlorothiazide 320-25 mg tablet 0.5 tab PO BID Qty: 30 6RF zolpidem 10 mg tablet 10 mg PO .qhs PRN (Reason: insomnia) 30 Days Qty: 60 3RF Rx Instructions: 1 or 2 tablets at bedtime for sleep celecoxib 200 mg capsule 200 mg PO BID PRN (Reason: pain) 90 Days Qty: 180 2RF ondansetron 8 mg film 8 mg PO Q12H PRN (Reason: nausea and vomiting) Qty: 60 1RF metformin 1,000 mg tablet See Rx Instructions .ROUTE .COMPLEX Qty: 180 0RF Dose Instruction: Take 1 tablet by mouth twice daily Rx Instructions: Take 1 tablet by mouth twice daily Eliquis 5 mg tablet See Rx Instructions .ROUTE .COMPLEX Qty: 180 0RF Dose Instruction: Take 1 tablet by mouth twice daily Rx Instructions: Take 1 tablet by mouth twice daily tramadol 50 mg tablet 100 mg PO Q8H PRN (Reason: pain, severe) Qty: 180 1RF Rx Instructions: refill on or after 30-day intervals montelukast 10 mg tablet 10 mg PO DAILY Qty: 90 3RF carvedilol 12.5 mg tablet 18.75 mg PO BID Qty: 270 0RF Rx Instructions: must administer with a meal/food lovastatin 20 mg tablet 20 mg PO DAILY Qty: 90 3RF (DME) OneTouch Verio test strips Strip See Rx Instructions .Route Qty: 100 3RF Rx Instructions: Check BS twice a day. multivitamin Tablet 1 tab PO DAILY folic acid 1 mg Tablet 1 mg PO DAILY cholecalciferol (vitamin D3) [Vitamin D3] 25 mcg (1,000 unit) Capsule 25 mcg PO DAILY Discharge Orders: Discharge Order (Routine); Ordered 09/24/22 Ordered By: Sanket Kasper Referrals: [facility] ([facility]) [Outside] Bryant Medina FNP [Physician Distance Education Teacher] - 09/27/22 8:00 am Discharge Diet: Advance as tolerated Discharge Activity: Limit activity as instructed Patient Instructions: Opioid Safety Activity Restrictions/Additional Instructions: Okay to shower Keep Tubigauze sleeve in place for swelling. Okay to remove for hygiene. Apply FirstIce up to 20 min/hr for pain and swelling Take Celebrex twice a day for the next 15 days for pain , discontinue other anti-inflammatories Take Neurontin twice a day for 7 days. Take Tylenol 500mg (2 tabs) as needed 3 times a day for mild pain take oxycodone for breakthrough pain. Exercises per physical therapy. May weight-bear as tolerated on total knee arthroplasty IF HAVE ANY PROBLEMS OR QUESTIONS CALL HOSPITAL BOOSTER PUMP OILER AT AND ASK TO HAVE DR. KASPER PAGED. Discharge Attestations Time Spent in Discharge Care*: other Quality Metrics Clinical Quality Measures [ No reported AMI, CVA or VTE this stay] Coding Level of Care Code Acute Chg FW DC note
--- NOTE | 2022-09-24 15:12 | PC.NURSE ---
Discharge education reviewed with patient and spouse at bedside. Verbally acknowledges discharge instructions. All questions and concerns addressed.
== END 2022-09-24 15:49 | disposition home health service (06) ==
LOC: MEDSURG 17:06
PROVIDERS: Anesthesiology; Admitting Provider Orthopaedic Surgery; PCP Family Medicine Adult Medicine; Visit Provider Orthopaedic Surgery
PROC: 8E0Y0CZ Robotic Assisted Procedure of Lower Extremity, Open Approach (ICD-10-PCS; CPT 27447; principal; 2022-09-23 12:40)
DX: M17.11 Unilateral primary osteoarthritis, right knee (principal); J45.909 Unspecified asthma, uncomplicated; I10 Essential (primary) hypertension; Z86.711 Personal history of pulmonary embolism; Z79.01 Long term (current) use of anticoagulants; E11.9 Type 2 diabetes mellitus without complications; E78.5 Hyperlipidemia, unspecified; E66.01 Morbid (severe) obesity due to excess calories; Z68.42 Body mass index [BMI] 45.0-49.9, adult; Z86.16 Personal history of COVID-19
CPT/HCPCS: 27447; 36415; 36416; 73560; 80048; 82962; 85018; 85025; 94640; 96372; 97110; 97116; 97161; 97165; 97535; C1776; G0378; J0171; J0690; J1100; J1580; J1815; J1885; J2270; J2405; J2704; J2795; J3010; J3490; J7030; J7613; J7626

== ENCOUNTER → 2022-10-01 13:26 | Outpatient (BNVA) | payer OTHER, SELFPAY | PROVIDERS: PCP Family Medicine Adult Medicine; Visit Provider Nurse Practitioner Family | DX: Z96.651 Presence of right artificial knee joint (principal); M25.561 Pain in right knee | CPT/HCPCS: 73560; 73565 ==

== ENCOUNTER → 2022-10-25 09:46 | Outpatient (BNVA) | payer OTHER, SELFPAY | PROVIDERS: PCP Family Medicine Adult Medicine; Visit Provider Nurse Practitioner Family | DX: Z96.651 Presence of right artificial knee joint (principal); Z48.89 Encounter for other specified surgical aftercare | CPT/HCPCS: 73560; 73565 ==

== ENCOUNTER → 2023-01-28 10:30 | Outpatient (BNVA) | payer OTHER, SELFPAY | PROVIDERS: PCP Family Medicine Adult Medicine; Visit Provider Nurse Practitioner Family | DX: Z48.89 Encounter for other specified surgical aftercare (principal); Z96.651 Presence of right artificial knee joint; M25.562 Pain in left knee | CPT/HCPCS: 73560; 73565 ==

== ENCOUNTER → 2023-05-06 08:40 | Outpatient (BNVA) | payer OTHER, SELFPAY | PROVIDERS: PCP Family Medicine Adult Medicine | DX: E11.9 Type 2 diabetes mellitus without complications (principal); E78.5 Hyperlipidemia, unspecified; I10 Essential (primary) hypertension | CPT/HCPCS: 80053; 83036; 84443; 85025 ==

== ENCOUNTER 2023-05-21 03:43 | Emergency (ER) | payer OTHER, SELFPAY ==
[2023-05-21 03:44] VITALS: BP 155/77; PULSE 84; RESP 20; TEMP 36.7; O2SAT 100; BMI 45.6
--- NOTE | 2023-05-21 03:47 | ECG_ITS ---
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 Measurements Intervals [place] Rate: 76 P: 15 OR: 187 QRS: 78 QRSD: 102 T: 50 QT: 367 QTc: 414 Interpretive Statements SINUS RHYTHM LOW QRS VOLTAGE IN PRECORDIAL LEADS [QRS DEFLECTION < 1.0 mV IN CHEST LEADS] No previous ECG available for comparison Electronically Signed On 05-21-2023 15:45:10 CDT by Jg Aranda M.D. [id number]
--- NOTE | 2023-05-21 03:50 | XRR_ITS ---
PROCEDURE INFORMATION: Exam: XR Chest Exam date and time: 05/21/2023 4:01 AM Age: 62 years old Clinical indication: Chest wall pain; Patient HX: Cp since Friday night; Additional info: Chest pain TECHNIQUE: Imaging protocol: Radiologic exam of the chest. Views: 1 view. COMPARISON: CR XR thoracic spine 3V* [id number] 05/04/2022 4:31 PM FINDINGS: Lungs: Unremarkable. No consolidation. Pleural spaces: Unremarkable. No pleural effusion. No pneumothorax. Heart/Mediastinum: Cardiac enlargement. Bones/joints: Unremarkable. XR/XR chest 1V portable [id number] IMPRESSION: Negative for acute chest pathology.
[2023-05-21 03:55] VITALS: BP 155/77; PULSE 80; RESP 18; O2SAT 99
--- NOTE | 2023-05-21 03:59 | PC.NURSE ---
pt states she has left ventricle hypertrophy and an HI in john
[2023-05-21 04:02] LABS: Basophils # 0.1 10^3/uL (0.0-0.1); Basophils % 0.7 %; Eosinophils # 0.3 10^3/uL (0.0-0.8); Eosinophils % 3.3 %; Hematocrit 38.5 % (36-47); Lymphocytes # 2.8 10^3/uL (0.8-4.8); Lymphocytes % 27.1 %; Mean Corpuscular Volume 90.8 fl (85-98); Mean Platelet Volume 8.9 fL (7.4-10.4); Monocytes # 0.5 10^3/uL (0.2-0.9); Monocytes % 4.6 %; Neutrophils # 6.53 10^3/uL (1.8-7.7); Nucleated Red Blood Cells % 0 %; Platelet Count 410 10^3/cmm (157-399); Red Blood Count 4.24 10^6/uL (3.85-5.65); Red Cell Distribution Width 13.7 % (12.1-15.1)
--- NOTE | 2023-05-21 04:03 | W.ED.CHESTPA ---
HPI - Chest Pain General: Chief Complaint: Chest Pain Stated Complaint: Chest Pain\Left Arm Pain Time Seen by Provider: 05/21/23 03:49 History of Present Illness: Patient presents to the ER with complaints of chest pain. This chest pain radiates down her left arm. Patient has been short of breath nauseous with some sweating. Patient said in 2019 she had similar episode to this and ended up being pulmonary emboli. Patient is currently a 6 out of 10. Patient is on Eliquis and she has not missed any doses. Risk Factors: Pulmonary embolism risk factors: history of pulmonary embolism Review of Systems General: Reports: 10 or more systems reviewed and unremarkable except in HPI and below PFSH ED PFSH: Medical History Acromial process of scapula fracture Asthma Breast lump on left side at 6 o'clock position Chronic generalized abdominal pain CKD stage 2 due to type 2 diabetes mellitus COVID-19 Positive test for COVID-19 05/17/2021 Diabetic neuropathy Diverticulitis Diverticulosis large intestine w/o perforation or abscess w/o bleeding Fall History of chronic pain Hx of pulmonary embolus Hyperlipidemia Hypertension Infected sebaceous cyst of skin Injury of right toe Insomnia LVH (left ventricular hypertrophy) Morbid obesity with body mass index of 45.0-49.9 in adult Osteoarthritis (arthritis due to wear and tear of joints) thoracic and Lumbar spine, multiple joints Pain of right knee after injury Primary localized osteoarthritis of knees, bilateral Right knee buckling Type 2 diabetes mellitus Surgical History Hx of right knee surgery 30 yrs ago [facility] Family History Other Cancer Diabetes Hyperlipidemia Hypertension LVH (left ventricular hypertrophy) Stroke Social History Smoking and tobacco status: never smoked Smoking risk assessment/counseling performed?: No Alcohol intake: never Desire information about alcohol rehabilitation?: No Counseling given: No Substance/Drug Use: never Desire information about substance/drug rehabilitation?: No Counseling given: No Caregiver/support person: Yes Lives independently: Yes Household members: spouse Marital status: Number of children: 1 Number of grandchildren: 2 Current occupational status: retired Physical Exam Const: COMMON NORMALS: no acute distress, average body habitus, patient oriented x3, no limitations, healthy appearing, alert and well nourished HENMT: COMMON NORMALS: normocephalic, atraumatic, hearing grossly normal bilaterally, external ears normal, Normal external nose present and moist oral mucous membranes HEAD & SCALP: normocephalic and atraumatic NOSE: Normal external nose present EXTERNAL EAR: Yes external ears normal Eye: COMMON NORMALS: Equal, round and reactive pupils present, EOMs intact bilaterally, conjunctivae normal and no scleral icterus CONJUNCTIVA: Yes conjunctivae normal PUPIL: Yes Equal, round and reactive pupils present Neck/C-Spine: COMMON NORMALS: full ROM, no lymphadenopathy, supple, no meningeal signs and no JVD Lymph: LYMPHATIC: no lymphadenopathy noted Chest: COMMONS NORMALS: normal inspection of the chest and normal palpation of entire chest wall Resp: COMMON NORMALS: normal respiratory effort, No retractions, No use of accessory muscles and clear to auscultation bilaterally AUSCULTATION: clear to auscultation bilaterally Cardio: COMMON NORMALS: no JVD, regular rate, regular rhythm, S1 normal heart sound present, S2 normal heart sound present, No gallops present (Cardio), No clicks present (Cardio), No murmurs present (Cardio) and No rub (Cardio) RATE: regular rate RHYTHM: regular rhythm HEART SOUNDS: S1 normal heart sound present and S2 normal heart sound present GI: COMMON NORMALS: Normal to inspection, nondistended, normoactive bowel sounds present, Soft to palpation, non-tender, No hepatosplenomegaly present, no masses and no bruits PALPATION: Yes Soft to palpation and Yes No hepatosplenomegaly present : COMMON NORMALS: Yes no CVA tenderness BLADDER/KIDNEY EXAM: Yes no CVA tenderness Back/Pelvis: COMMON NORMALS: no CVA tenderness Neuro: COMMON NORMALS: patient oriented x3 SENSORIUM/ORIENTATION: Yes alert MENINGEAL SIGNS: Yes no meningeal signs Course Vital Signs: Vital signs: Vital Signs Temperature 98.1 F 05/21/23 03:44 Pulse Rate 79 05/21/23 07:32 Respiratory Rate 20 H 05/21/23 07:32 Blood Pressure 153/61 05/21/23 07:32 Pulse Oximetry 98 05/21/23 07:32 Oxygen Delivery Me thod Room Air 05/21/23 07:30 MDM - Chest Pain Medical Decision Making Patient presented to the ER with chest pain that radiates down her left arm. Patient was worked up in the standard cardiac fashion with serial enzymes serial EKGs chest x-ray. All of which were benign. This is felt to be noncardiac in nature. Patient be discharged home to follow-up with her PCP for further evaluation and treatment. Differential Diagnosis Unlikely acute massive pulmonary embolism, acute respiratory failure, acute myocardial infarction, cardiac arrest or sudden cardiac Medical Records I reviewed the patient's medical records. Lab Data I reviewed the patient's lab results. 05/21/23 03:50 05/21/23 03:50 Radiology Impressions Chest X-Ray 05/21/23 03:50 IMPRESSION: Negative for acute chest pathology. Laboratory Results WBC 10.20 10^3/uL (3.29-11.43) 05/21/23 03:50 RBC 4.24 10^6/uL (3.85-5.65) 05/21/23 03:50 Hgb 12.70 g/dL (11.27-16.99) 05/21/23 03:50 Hct 38.5 % (36-47) 05/21/23 03:50 MCV 90.8 fl (85-98) 05/21/23 03:50 MCH 30.0 pg (27-33) 05/21/23 03:50 MCHC 33.0 g/dL (30-55) 05/21/23 03:50 RDW 13.7 % (12.1-15.1) 05/21/23 03:50 Plt Count 410 10^3/cmm (157-399) H 05/21/23 03:50 MPV 8.9 fL (7.4-10.4) 05/21/23 03:50 Neut % (Auto) 64.0 % 05/21/23 03:50 Lymph % (Auto) 27.1 % 05/21/23 03:50 [place] % (Auto) 4.6 % 05/21/23 03:50 Eos % (Auto) 3.3 % 05/21/23 03:50 Baso % (Auto) 0.7 % 05/21/23 03:50 Neut # (Auto) 6.53 10^3/uL (1.8-7.7) 05/21/23 03:50 Lymph # (Auto) 2.8 10^3/uL (0.8-4.8) 05/21/23 03:50 [place] # (Auto) 0.5 10^3/uL (0.2-0.9) 05/21/23 03:50 Eos # (Auto) 0.3 10^3/uL (0.0-0.8) 05/21/23 03:50 Baso # (Auto) 0.1 10^3/uL (0.0-0.1) 05/21/23 03:50 Nucleated RBC % (auto) 0 % 05/21/23 03:50 Nucleated RBCs # 0.0 /100WBC 05/21/23 03:50 PT 12.90 SECONDS (12.1-14.9) 05/21/23 03:50 INR 0.95 (0.8-1.2) 05/21/23 03:50 D-Dimer 0.29 ug/mLFEU (0-0.59) 05/21/23 03:50 Sodium 139 mmol/L (136-145) 05/21/23 03:50 Potassium 4.1 mmol/L (3.5-5.1) 05/21/23 03:50 Chloride 103 mmol/L (98-107) 05/21/23 03:50 Carbon Dioxide 24 mmol/L (22-29) 05/21/23 03:50 Anion Gap 16.1 (5-19) 05/21/23 03:50 BUN 19 mg/dL (8-23) 05/21/23 03:50 Creatinine 0.9 mg/dL (0.5-0.9) 05/21/23 03:50 GFR Calculation 63.7 mL/min (90-130) L 05/21/23 03:50 Glucose 159 mg/dL (65-115) H 05/21/23 03:50 Calculated Osmolality 294 mOsm/kg (285-295) 05/21/23 03:50 Calcium 10.4 mg/dL (8.5-10.5) 05/21/23 03:50 Total Bilirubin 0.2 mg/dL (0.15-1.2) 05/21/23 03:50 AST 14 U/L (0-32) 05/21/23 03:50 ALT 16 U/L (0-33) 05/21/23 03:50 Alkaline Phosphatase 71 U/L (35-105) 05/21/23 03:50 Troponin T Baseline 9 ng/L (0-10) 05/21/23 03:50 Troponin T 120 Minute 7.71 ng/L (0-10) 05/21/23 05:40 Delta Troponin T -1.29 ABS# (0-10) L 05/21/23 05:40 Total Protein 6.5 g/dL (6.6-8.7) L 05/21/23 03:50 Albumin 4.4 g/dL (3.5-5.2) 05/21/23 03:50 Globulin 2.1 g/dL (1.3-4.6) 05/21/23 03:50 EKG Data EKG 1: I personally reviewed and interpreted this EKG as follows: EKG interpretation date: 05/21/23 EKG interpretation time: 03:47 Prior EKG tracings: not available for review Interpretation: EKG showed ventricular rate 76 bpm, NH interval 187, QRS duration 102, QTc of 397, sinus rhythm, no ST-T wave changes EKG 2: I personally reviewed and interpreted this EKG as follows: EKG interpretation date: 05/21/23 EKG interpretation time: 05:34 Prior EKG tracings: available for review Interpretation: EKG shows ventricular rate 72 bpm, NH interval 197, QRS duration 96, QTc of 385, sinus rhythm, no ST-T wave changes Discharge Plan Discharge Patient Disposition: Home Clinical Impression: Chest pain, non-cardiac Condition: Stable Prescriptions: No Action budesonide 0.5 mg/2 mL suspension for nebulization 0.5 mg inhalation TID PRN (Reason: SOB or wheezing) Qty: 180 2RF fluticasone propion-salmeterol [Advair Diskus] 250-50 mcg/dose blister with device 1 inh inhalation BID PRN (Reason: unknown) nitroglycerin [Nitrostat] 0.4 mg tablet, sublingual 0.4 mg sublingual Q5M PRN (Reason: chest pain) Qty: 25 3RF Rx Instructions: do not exceed 3 doses per episode insulin glargine U-300 conc 300 unit/mL (3 mL) insulin pen 30 unit SUBCUT DAILY PRN (Reason: Insulin for diabetes) Rx Instructions: Sliding scale for her daily doses isosorbide mononitrate 30 mg tablet extended release 24 hr 15 mg PO BID montelukast 10 mg tablet 10 mg PO DAILY Qty: 90 3RF lovastatin 20 mg tablet 20 mg PO DAILY Qty: 90 3RF (DME) OneTouch Verio test strips Strip See Rx Instructions .Route Qty: 100 3RF Rx Instructions: Check BS twice a day. hydroxyzine HCl 50 mg tablet 50 mg PO Q8H PRN (Reason: nauea/pain) Qty: 90 1RF tizanidine 4 mg capsule 4 mg PO Q6H PRN (Reason: muscle spasticity) Qty: 90 2RF Rx Instructions: do not exceed 3 doses per 24 hrs valsartan-hydrochlorothiazide 320-25 mg tablet 0.5 tab PO BID Qty: 45 2RF tramadol 50 mg tablet 100 mg PO Q8H PRN (Reason: pain, severe) Qty: 180 1RF Rx Instructions: refill on or after 30-day intervals zolpidem 10 mg tablet 10 mg PO .qhs PRN (Reason: insomnia) 30 Days Qty: 60 3RF Rx Instructions: 1 or 2 tablets at bedtime for sleep celecoxib 200 mg capsule 200 mg PO BID PRN (Reason: pain) 90 Days Qty: 180 2RF ondansetron 8 mg film 8 mg PO Q12H PRN (Reason: nausea and vomiting) Qty: 60 1RF metformin 1,000 mg tablet See Rx Instructions .ROUTE .COMPLEX Qty: 180 0RF Dose Instruction: Take 1 tablet by mouth twice daily Rx Instructions: Take 1 tablet by mouth twice daily amitriptyline 50 mg tablet 50 mg PO BEDTIME Qty: 30 3RF Eliquis 5 mg tablet 5 mg PO BID Qty: 180 1RF carvedilol 12.5 mg tablet 18.75 mg PO BID Qty: 270 0RF Rx Instructions: must administer with a meal/food multivitamin Tablet 1 tab PO DAILY folic acid 1 mg Tablet 1 mg PO DAILY cholecalciferol (vitamin D3) [Vitamin D3] 25 mcg (1,000 unit) Capsule 25 mcg PO DAILY Discharge Orders: Discharge ED (Routine); Ordered 05/21/23 Ordered By: Tico Aldridge Referrals: Sim Maddox MD [Primary Care Provider] - 1 week Patient Instructions: Chest Pain - Noncardiac Coding Level of Care Code ED Filling Station Equipment Mechanic for Beck Barillas
[2023-05-21 04:14] LABS: INR 0.95 (0.8-1.2)
[2023-05-21 04:26] LABS: D Dimer 0.29 ug/mLFEU (0-0.59)
[2023-05-21 04:27] LABS: Alanine Aminotransferase 16 U/L (0-33); Albumin Level 4.4 g/dL (3.5-5.2); Alkaline Phosphatase 71 U/L (35-105); Aspartate Amino Transferase 14 U/L (0-32); Blood Urea Nitrogen 19 mg/dL (8-23); Calcium 10.4 mg/dL (8.5-10.5); Carbon Dioxide 24 mmol/L (22-29); Chloride 103 mmol/L (98-107); Globulin 2.1 g/dL (1.3-4.6); Glomerular Filtration Rate 63.7 mL/min (90-130); Glucose 159 mg/dL (65-115); Osmolality Calculated 294 mOsm/kg (285-295); Sodium 139 mmol/L (136-145); Total Bilirubin 0.2 mg/dL (0.15-1.2); Total Protein 6.5 g/dL (6.6-8.7)
[2023-05-21 04:28] LABS: Anion Gap 16.1 (5-19); Potassium 4.1 mmol/L (3.5-5.1)
[2023-05-21 04:29] LABS: Troponin(5th) Baseline 9 ng/L (0-10)
[2023-05-21 05:19] VITALS: BP 142/68; PULSE 72; RESP 18; O2SAT 95
--- NOTE | 2023-05-21 05:50 | ECG_ITS ---
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 Measurements Intervals [place] Rate: 72 P: 37 OR: 197 QRS: 74 QRSD: 96 T: 60 QT: 361 QTc: 396 Interpretive Statements SINUS RHYTHM LOW QRS VOLTAGE IN PRECORDIAL LEADS [QRS DEFLECTION < 1.0 mV IN CHEST LEADS] Compared to ECG 05/21/2023 03:47:08 No significant changes Electronically Signed On 05-21-2023 15:47:17 CDT by Jg Aranda M.D. [id number]
[2023-05-21 06:19] LABS: Troponin 5 2HR 7.71 ng/L (0-10); Troponin 5 2HR Delta -1.29 ABS# (0-10)
[2023-05-21 06:23] VITALS: BP 141/95; PULSE 71; RESP 17; O2SAT 21
[2023-05-21 07:30] VITALS: BP 153/61; PULSE 79; RESP 20; O2SAT 98
[2023-05-21 07:32] VITALS: BP 153/61; PULSE 79; RESP 20; O2SAT 98
== END 2023-05-21 07:35 | disposition home or self-care (01) ==
PROVIDERS: Emergency Medicine; Emergency Provider Family Medicine; PCP Family Medicine Adult Medicine
DX: R07.89 Other chest pain (principal); Z79.01 Long term (current) use of anticoagulants; Z79.84 Long term (current) use of oral hypoglycemic drugs; Z79.4 Long term (current) use of insulin; I12.9 Hypertensive chronic kidney disease with stage 1 through stage 4 chronic kidney disease, or unspecified chronic kidney disease; E11.22 Type 2 diabetes mellitus with diabetic chronic kidney disease; N18.2 Chronic kidney disease, stage 2 (mild); E78.5 Hyperlipidemia, unspecified; Z86.711 Personal history of pulmonary embolism
CPT/HCPCS: 71045; 80053; 84484; 85025; 85378; 85610; 93005; 99285

== ENCOUNTER → 2023-06-12 15:43 | Outpatient (BNVA) | payer OTHER, SELFPAY | PROVIDERS: PCP Family Medicine Adult Medicine; Visit Provider Internal Medicine Cardiovascular Disease | DX: Z86.711 Personal history of pulmonary embolism (principal); R06.02 Shortness of breath; I31.9 Disease of pericardium, unspecified; R07.9 Chest pain, unspecified; E11.9 Type 2 diabetes mellitus without complications; E78.5 Hyperlipidemia, unspecified; I51.7 Cardiomegaly | CPT/HCPCS: 36415; 80048; 83880; 84484; 85378 ==

== ENCOUNTER 2023-06-23 06:53 | Outpatient (CLI) | payer OTHER, SELFPAY ==
--- NOTE | 2023-06-23 07:00 | CT_ITS ---
WS: [id number] CTA OF THE CHEST WITH PULMONARY EMBOLISM PROTOCOL TECHNIQUE: High-resolution contrast enhanced CTA of the chest with coronal and sagittal reformatted i mages with pulmonary embolism protocol. MIP images are also reviewed. CLINICAL INFORMATION: PEmbolism COMPARISON: None. DLP: 510.[address] scans at [facility] use at least one of these dose optimization techniques: automated e xposure control; mA and/or kV adjustment per patient size (includes targeted exams where dose is matc hed to clinical indication); or iterative reconstruction. FINDINGS: Proximal main pulmonary arteries are normal. Normal segmental and subsegmental pulmonary arteries. No evidence of pulmonary embolus. Normal caliber thoracic aorta. Lungs are well aerated. No acute pulmonary infiltrates. No focal pneum onia or pleural fluid. Subsegmental atelectasis RIGHT middle lobe. Adrenal glands are normal. Hepatomegaly. Small esophageal hiatal hernia.Low-attenuation pericardial l esion most compatible with pericardial cyst measuring 5.1 x 2.5 cm adjacent to the RIGHT atrium. Cardiomegaly. No mediastinal or hilar lymphadenopathy. No axillary lymphadenopathy. Posterior project ing RIGHT thyroid nodule measuring 1.0 x 1.0 cm. IMPRESSION: 1. Proximal main pulmonary arteries are normal. No evidence of pulmonary embolus. 2. Cardiomegaly. 3. Small esophageal hiatal hernia. 4. No acute pulmonary infiltrates.
[2023-06-23] MEDS: iohexol 350 mg/mL 500 mL Btl (per mL) IV (07:18)
== END 2023-06-23 06:54 | disposition home or self-care (01) ==
LOC: RAD 06:53
PROVIDERS: PCP Family Medicine Adult Medicine; Visit Provider Internal Medicine Cardiovascular Disease
DX: I26.99 Other pulmonary embolism without acute cor pulmonale (principal); I51.7 Cardiomegaly
CPT/HCPCS: 71275; Q9967

== ENCOUNTER → 2023-08-01 15:46 | Outpatient (BNVA) | payer OTHER, SELFPAY | PROVIDERS: PCP Family Medicine Adult Medicine; Visit Provider Nurse Practitioner Family | DX: S59.912A Unspecified injury of left forearm, initial encounter (principal); W18.00XA Striking against unspecified object with subsequent fall, initial encounter | CPT/HCPCS: 73060 ==

== ENCOUNTER → 2023-11-18 15:08 | Outpatient (BNVA) | payer MEDICARE, SELFPAY | PROVIDERS: PCP Family Medicine Adult Medicine; Visit Provider Internal Medicine Cardiovascular Disease | DX: I35.0 Nonrheumatic aortic (valve) stenosis (principal); E78.2 Mixed hyperlipidemia; Z86.711 Personal history of pulmonary embolism; E11.49 Type 2 diabetes mellitus with other diabetic neurological complication; E66.01 Morbid (severe) obesity due to excess calories; Z68.42 Body mass index [BMI] 45.0-49.9, adult; I12.9 Hypertensive chronic kidney disease with stage 1 through stage 4 chronic kidney disease, or unspecified chronic kidney disease; E11.22 Type 2 diabetes mellitus with diabetic chronic kidney disease; N18.2 Chronic kidney disease, stage 2 (mild); Z79.4 Long term (current) use of insulin | CPT/HCPCS: 99214 ==

== ENCOUNTER 2023-11-24 07:27 | Outpatient (CLI) | payer MEDICARE, SELFPAY ==
--- NOTE | 2023-11-24 08:00 | USCV_ITS ---
Arelis Nathan Age: 63 Gender: F : 1960 Exam Date: 11/24/2023 08:03 Ordering Phys: Henna Gray MD ([email or web address]) Technologist: Marlyn Fitzgerald [place] [facility] [place]: , murmur BP: 128 / 78 HR: 0 Rhythm: Sinus Technical Quality: Adequate MEASUREMENTS (Male / Female) Normal Values 2D ECHO LV Systolic Diameter PLAX 3.9 cm IVS Diastolic Thickness 1.2 cm 0.6 - 1.0 / 0.6 - 0.9 cm IVS Systolic Thickness 1.4 cm LVPW Diastolic Thickness 1.3 cm 0.6 - 1.0 / 0.6 - 0.9 cm LVPW Systolic Thickness 1.4 cm LA Diameter 3.8 cm RA Systolic Volume 4C AL 14.9 ml RA Systolic Volume 4C MOD 14.3 ml Aorta at Sinotubular Diameter 2.9 cm DOPPLER AV Peak Velocity 213.5 cm/s MV Area PHT 2.4 cm squared Mitral E to A Ratio 0.9 TV Peak Velocity 160.3 cm/s TR Peak Velocity 194.5 cm/s TR Peak Gradient 15.2 mmHg TR Mean Velocity 124.0 cm/s TR Mean Gradient 7.7 mmHg TR Velocity Time Integral 40.3 cm PV Peak Velocity 66.0 cm/s FINDINGS Left Ventricle Normal left ventricular size and systolic function, EF 60%.mild left ventricular hypertrophy. No regional wall motion abnormalities. Grade I/IV diastolic dysfunction (abnormal relaxation filling pattern), normal to mildly elevated filling pressures. Right Ventricle The right ventricle is normal in size and function. Right Atrium The right atrium is normal in size. Left Atrium Moderately increased left atrial size. Mitral Valve Thickened mitral valve. Mild mitral annular calcification. Aortic Valve Thickened aortic valve. Mild aortic valve calcification. Features of aortic valve sclerosis Tricuspid Valve No gross abnormalities noted Pulmonic Valve Pulmonic valve not well visualized. Pericardium Normal pericardium without effusion. Aorta Normal ascending aorta dimension. IVC Normal inferior vena cava. CONCLUSIONS Normal left ventricular size and systolic function, EF 60%.mild left ventricular hypertrophy. No regional wall motion abnormalities. Grade I/IV diastolic dysfunction (abnormal relaxation filling pattern), normal to mildly elevated filling pressures. Moderately increased left atrial size. Thickened mitral valve. Mild mitral annular calcification. Features of aortic valve sclerosis. There is no pericardial effusion. There are no intracardiac masses. Compared to the study from 09/19/2021, there may not be a significant change Dr Henna Gray MD FAC (Electronically Signed) Final Date: 28 November 2023 20:01 S
== END 2023-11-24 07:28 | disposition home or self-care (01) ==
LOC: RAD 07:27
PROVIDERS: PCP Family Medicine Adult Medicine; Visit Provider Internal Medicine Cardiovascular Disease
DX: I08.0 Rheumatic disorders of both mitral and aortic valves (principal)
CPT/HCPCS: 93306

== ENCOUNTER → 2024-02-06 12:12 | Outpatient (BNVA) | payer MEDICARE, SELFPAY | PROVIDERS: PCP Family Medicine Adult Medicine; Visit Provider Family Medicine Adult Medicine | DX: E78.2 Mixed hyperlipidemia; I10 Essential (primary) hypertension; E11.49 Type 2 diabetes mellitus with other diabetic neurological complication | CPT/HCPCS: 80053; 80061; 83036; 84443; 85025 ==

== ENCOUNTER → 2024-05-24 10:34 | Outpatient (BNVA) | payer MEDICARE, SELFPAY | PROVIDERS: PCP Family Medicine Adult Medicine; Visit Provider Nurse Practitioner Family | DX: I10 Essential (primary) hypertension (principal); R09.89 Other specified symptoms and signs involving the circulatory and respiratory systems | CPT/HCPCS: 99214 ==

== ENCOUNTER 2024-06-21 15:09 | Outpatient (CLI) | payer MEDICARE, SELFPAY ==
--- NOTE | 2024-06-21 15:15 | USCV_ITS ---
Arelis Nathan Age: 63 Gender: F : 1960 Exam Date: 06/21/2024 15:26 Ordering Phys: Miesha Moseley Technologist: ORTIZ Exam Location: [facility] – [place] Indication: cca disease Risk Factors: Previous Vascular Surgery: Right Brachial BP: / Left Brachial BP: / Right Left Velocity (cm/s) Spectral Plaque Velocity (cm/s) Spectral Plaque Syst/Diast Broadening Syst/Diast Broadening 92.40/ 17.90 Prox CCA 102.80/ 19.90 93.00/ 19.00 Mid CCA 90.50 / 21.00 69.60/ 18.80 Distal CCA 81.80 / 23.50 32.40/ 10.00 Prox ICA 46.20 / 13.70 55.30/ 17.50 Mid ICA 64.90 / 20.60 81.10/ 27.60 Distal ICA 65.40 / 20.50 67.50 ECA 66.00 1.20 ICA/CCA 0.80 Antegrade Vertebral Antegrade 50.40/ 13.80 cm/s 42.50/ 16.00 cm/s Tri Subclavian Tri 101.8 156.7 0 0 CONCLUSIONS Right ICA stenosis <50%. Intimal thickening in the common carotid arteries and internal carotid arteries bilaterally. Mild atheromatous plaque right carotid bulb/ICA. Left ICA stenosis <50%. Intimal thickening in the common carotid arteries and internal carotid arteries bilaterally. Mild atheromatous plaque left carotid bulb/ICA. Normal antegrade Doppler flow noted in the right vertebral artery. Normal antegrade Doppler flow noted in the left vertebral artery. Garcia Hirsch MD (Electronically Signed) Final Date: 22 June 2024 09:04 S
== END 2024-06-21 15:10 | disposition home or self-care (01) ==
LOC: RAD 15:09
PROVIDERS: PCP Family Medicine Adult Medicine; Visit Provider Nurse Practitioner Family
DX: R09.89 Other specified symptoms and signs involving the circulatory and respiratory systems (principal)
CPT/HCPCS: 93880

== ENCOUNTER 2024-07-27 16:09 | Outpatient (CLI) | payer MEDICARE, SELFPAY ==
--- NOTE | 2024-07-27 16:15 | CT_ITS ---
WS: [id number] CT HEAD WITH AND WITHOUT CONTRAST HISTORY: headache TECHNIQUE: Noncontrast 3.0 mm axial images obtained from the vertex to the skull base. Additional tosha ging performed at 3.0 mm axial images status post IV contrast. Bone and soft tissue windows are revie wed. All CT scans at [facility] use at least one of these dose optimization techniques: autom ated exposure control; mA and/or kV adjustment per patient size (includes targeted exams where dose i s matched to clinical indication); or iterative reconstruction. CONTRAST: Omnipaque 350; 100 mL IV. DLP: 2098.18 mGy.cm COMPARISON: None available. No acute intracranial hemorrhage, edema or midline shift. Mild atrophy and very mild small vessel dis ease with no prior infarct. No enhancing mass or vascular malformations identified. Dural venous sinuses are normally enhancing. Visualized [place] is unremarkable. Paranasal sinuses as visualized: Clear. Mastoid air cells: Clear. Calvarium and scalp: Intact. CT/CT head wo/w con [id number] IMPRESSION: 1. No acute intracranial hemorrhage or edema. 2. No enhancing masses or vascular malformations. 3. No significant paranasal sinus disease. 4. Mild cerebral atrophy and small vessel disease.
[2024-07-27 16:39] LABS: Blood Urea Nitrogen 21 mg/dL (8-23); Glomerular Filtration Rate 50.3 mL/min (90-130)
[2024-07-27] MEDS: iohexol 350 mg/mL 500 mL Btl (per mL) IV (16:47)
== END 2024-07-27 16:10 | disposition home or self-care (01) ==
LOC: RAD 16:10
PROVIDERS: PCP Family Medicine Adult Medicine
DX: R51.9 Headache, unspecified (principal)
CPT/HCPCS: 70470; 82565; 84520

== ENCOUNTER 2024-08-04 15:39 | Emergency (ER) | payer MEDICARE, SELFPAY ==
--- NOTE | 2024-08-04 15:42 | XRR_ITS ---
PROCEDURE INFORMATION: Exam: XR Chest Exam date and time: 08/04/2024 4:28 PM Age: 63 years old Clinical indication: Pain; Chest pressure; Additional info: Cp TECHNIQUE: Imaging protocol: Radiologic exam of the chest. Views: 1 view. COMPARISON: CT angio chest PE protcl [id number] 06/23/2023 7:09 AM FINDINGS: Lungs: Unremarkable. No consolidation. Pleural spaces: Unremarkable. No pleural effusion. No pneumothorax. Heart/Mediastinum: Moderate cardiomegaly. Bones/joints: Unremarkable. XR/XR chest 1V portable [id number] IMPRESSION: Moderate cardiomegaly.
--- NOTE | 2024-08-04 15:42 | ECG_ITS ---
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
--- NOTE | 2024-08-04 15:51 | CT_ITS ---
WS: [id number] CT HEAD TECHNIQUE: Noncontrast CT of the head obtained from the skullbase to the vertex. CLINICAL INFORMATION: Symptoms of acute stroke COMPARISON: 07/27/2024 DLP: 1243 mgy/cm All CT scans at [facility] use at least one of these dose optimization techniques: automated e xposure control; mA and/or kV adjustment per patient size (includes targeted exams where dose is matc hed to clinical indication); or iterative reconstruction. FINDINGS: No evidence of intracranial hemorrhage or mass effect. Ventricular system and basal cisterns are humphries nt. Mild small vessel changes with mild parenchymal volume loss. No extra-axial fluid collections. No evidence of mass or mass effect. Paranasal sinuses and mastoid air cells are well aerated. .Normal visualized soft tissues. CT/CT head thrombolytic [id number] IMPRESSION: 1. No evidence of intracranial hemorrhage or mass effect. 2. No acute intracranial findings. Notified Akbar Sanon MD at 08/04/2024 4:06 PM.
[2024-08-04 15:55] VITALS: BP 172/88
--- NOTE | 2024-08-04 16:06 | CTR_ITS ---
PROCEDURE INFORMATION: Exam: CTA Head With Contrast, Arteriography Exam date and time: 08/04/2024 4:10 PM Age: 63 years old Clinical indication: Dizziness and giddiness; Additional info: AYALA TECHNIQUE: Imaging protocol: Computed tomographic angiography of the head with contrast. Exam focused on the arteries. 3D rendering (Not supervised by radiologist): MIP and/or 3D reconstructed images were created by the technologist. Radiation optimization: All CT scans at this facility use at least one of these dose optimization techniques: automated exposure control; mA and/or kV adjustment per patient size (includes targeted exams where dose is matched to clinical indication); or iterative reconstruction. Contrast material: OMNIPAQUE 350; Contrast volume: 100 ml; Contrast route: INTRAVENOUS (IV); COMPARISON: CT head thrombolytic [id number] 08/04/2024 3:59 PM RADIATION DOSE METRICS: Total DLP (mGy-cm): 838.02 FINDINGS: Limitations: Suboptimal contrast opacification of the vasculature of the head. ANTERIOR CIRCULATION: Right internal carotid artery: Intracranial segment is patent with no significant stenosis. No aneurysm. Right middle cerebral artery: No occlusion or significant stenosis. No aneurysm. Right anterior cerebral artery: No occlusion or significant stenosis. No aneurysm. Left internal carotid artery: Intracranial segment is patent with no significant stenosis. No aneurysm. Left middle cerebral artery: No occlusion or significant stenosis. No aneurysm. Left anterior cerebral artery: No occlusion or significant stenosis. No aneurysm. POSTERIOR CIRCULATION: Right vertebral artery: No occlusion or significant stenosis. No aneurysm. Left vertebral artery: No occlusion or significant stenosis. No aneurysm. Basilar artery: No occlusion or significant stenosis. No aneurysm. Right posterior cerebral artery: No occlusion or significant stenosis. No aneurysm. Left posterior cerebral artery: No occlusion or significant stenosis. No aneurysm. Brain: No definite mass, mass effect, or midline shift. Cerebral ventricles: No ventriculomegaly. Bones/joints: Unremarkable. No acute fracture. Soft tissues: Unremarkable. PROCEDURE INFORMATION: Exam: CTA Neck With Contrast Exam date and time: 08/04/2024 4:10 PM Age: 63 years old Clinical indication: Dizziness and giddiness; Additional info: AYALA TECHNIQUE: Imaging protocol: Computed tomographic angiography of the neck with contrast. Exam focused on the cervical segments of the vasculature. 3D rendering (Not supervised by radiologist): MIP and/or 3D reconstructed images were created by the technologist. Radiation optimization: All CT scans at this facility use at least one of these dose optimization techniques: automated exposure control; mA and/or kV adjustment per patient size (includes targeted exams where dose is matched to clinical indication); or iterative reconstruction. Contrast material: OMNIPAQUE 350; Contrast volume: 100 ml; Contrast route: INTRAVENOUS (IV); COMPARISON: CT angio chest PE protcl [id number] 06/23/2023 7:09 AM RADIATION DOSE METRICS: Total DLP (mGy-cm): 838.02 FINDINGS: Limitations: Suboptimal contrast opacification of the vasculature of the neck. Right common carotid artery: No stenosis. No dissection or occlusion. Right internal carotid artery: No stenosis of the extracranial segment. No dissection or occlusion. Right external carotid artery: No occlusion or stenosis of the origin. Left common carotid artery: No stenosis. No dissection or occlusion. Left internal carotid artery: No stenosis of the extracranial segment. No dissection or occlusion. Left external carotid artery: No occlusion or stenosis of the origin. Right vertebral artery: No stenosis. No dissection or occlusion. Left vertebral artery: No stenosis. No dissection or occlusion. Thyroid: Several scattered subcentimeter nodules noted in the both thyroid lobes. Soft tissues: Normal. No significant soft tissue swelling. Bones/joints: No acute fracture. CT/CT angio headneck* [id number] IMPRESSION: No large vessel stenosis or occlusion. IMPRESSION: No stenosis or occlusion. COMMENTS: Consistent with the [employer] [place] [employer]'s Incidental Findings Committee white paper (J Am Miladys Radiol 2015): In patients aged 35 years and older with an incidental thyroid nodule equal to or greater than 1.[address], MRI or extrathyroidal US, further evaluation with dedicated thyroid US is recommended for patients with normal life expectancy and without comorbidities. For smaller nodules without suspicious features, no further evaluation or follow up is recommended. REFERENCES: NASCET CRITERIA. The degree of stenosis in the cervical segment of the internal carotid artery is based on NASCET criteria. Normal is no stenosis. Mild is less than 50% stenosis. Moderate is 50-69% stenosis. Severe is 70% to 99% stenosis. Total occlusion is no detectable patent lumen.
[2024-08-04 16:07] LABS: Glucose Point of Care 141 mg/dL (70-110)
--- NOTE | 2024-08-04 16:13 | ED_ITS ---
HPI - Dizziness 2 General: Chief Complaint: Dizziness Stated Complaint: CP left arm pain SOB Time Seen by Provider: 08/04/24 15:46 Source: patient Mode of arrival: ambulatory Limitations: no limitations History of Present Illness: HPI Narrative: 63-year-old female states that he had so me sudden dizziness that started roughly 1 hour ago. She states she has some slight vertigo and states she also fell like she may pass out. States she also has been having headache and chest pain. He states she has chronic headaches and been seen in the past for him. States she is also been having chest pain for months as well. States that sharp pain in the center of her chest she denies any slurred speech denies any focal weakness. Associated symptoms: Reports chest pain and headache(s); Denies chills, nausea or vomiting Related Data Home Medications Medication Instructions Recorded Confirmed cholecalciferol (vitamin D3) 25 25 mcg PO DAILY 10/03/21 07/13/24 mcg (1,000 unit) capsule (Vitamin D3) folic acid 1 mg tablet 1 mg PO DAILY 10/03/21 07/13/24 multivitamin 1 tab PO DAILY 10/03/21 07/13/24 Previous Rx's Medication Instructions Recorded budesonide 0.5 mg/2 mL suspension 0.5 mg (2 mL) inhalation TID PRN 07/02/21 for nebulization SOB or wheezing #180 mL nitroglycerin 0.4 mg sublingual 0.4 mg sublingual Q5M PRN chest 08/01/21 tablet (Nitrostat) pain #25 tabs blood sugar diagnostic (OneTouch #100 ea 09/10/22 Verio test strips) loratadine 10 mg tablet 10 mg PO DAILY PRN drainage #30 10/07/23 tabs celecoxib 200 mg capsule 200 mg PO BID PRN pain 90 days 01/01/24 #180 caps dicyclomine 20 mg tablet 20 mg PO .q 6 hr prn PRN abdominal 02/19/24 pain #30 tabs prednisone 20 mg tablet 60 mg (3 x 20 mg) PO DAILY 5 days 03/17/24 #15 tabs fluticasone 250 mcg-salmeterol 50 See Rx Instructions .Route 03/25/24 mcg/dose blistr powdr for .COMPLEX #60 ea inhalation amitriptyline 50 mg tablet 50 mg PO BEDTIME chronic pain & 04/09/24 sleep #90 tabs apixaban 5 mg tablet (Eliquis) 5 mg PO BID #180 tabs 04/14/24 ondansetron 8 mg disintegrating 8 mg PO Q12H PRN nausea and 04/14/24 tablet vomiting #60 tabs albuterol sulfate 90 mcg/actuation See Rx Instructions .Route 04/20/24 aerosol inhaler .COMPLEX #9 grams blood sugar diagnostic #100 ea 05/13/24 blood-glucose meter #1 ea 05/13/24 insulin glargine U-300 conc 300 30 unit (0.1 mL) SUBCUT DAILY PRN 05/13/24 unit/mL (3 mL) subcutaneous pen Insulin for diabetes #6 mL lancets 23 gauge #100 ea 05/13/24 montelukast 10 mg tablet See Rx Instructions .Route 05/18/24 .COMPLEX #90 tabs isosorbide mononitrate 30 mg 15 mg (1/2 x 30 mg) PO BID #90 tabs 05/24/24 tablet,extended release 24 hr valsartan 320 0.5 tab PO BID #45 tabs 05/24/24 mg-hydrochlorothiazide 25 mg tablet zolpidem 10 mg tablet 10 mg PO .qhs PRN insomnia 30 days 05/24/24 #60 tabs hydroxyzine HCl 50 mg tablet 50 mg PO Q8H PRN nauea/pain #90 06/14/24 tabs tramadol 50 mg tablet 100 mg (2 x 50 mg) PO Q8H PRN 06/21/24 pain, severe #180 tabs tizanidine 4 mg tablet 4 mg PO Q8H PRN muscle spasticity 06/25/24 #90 tabs metformin 1,000 mg tablet See Rx Instructions .Route 07/12/24 .COMPLEX #180 tabs methocarbamol 750 mg tablet 750 mg PO Q8H PRN back pain #30 07/13/24 tabs topiramate 25 mg tablet 25 mg PO DAILY #30 tabs 07/13/24 carvedilol 12.5 mg tablet See Rx Instructions .Route 07/22/24 .COMPLEX #270 tabs lovastatin 20 mg tablet See Rx Instructions .Route 07/30/24 .COMPLEX #90 tabs Allergies Allergy/AdvReac Type Severity Reaction Status Date / Time erythromycin base Allergy Unknown Unresponsiv Verified 07/13/24 15:38 e promethazine [From Phenergan] Allergy ADR-Nausea Verified 07/13/24 15:38 Review of Systems 2 Const: Denies: fever(s), chills, body aches or change in appetite Eyes: Denies: blurry vision or eye discomfort ENMT: Denies: throat pain or dental pain Card: Reports: chest pain Resp: Denies: dyspnea GI: Denies: abdominal pain, nausea, vomiting or diarrhea Musc: Denies: neck pain or back pain Skin/Breast: Denies: rash Neuro: Reports: headache(s) and dizziness PFSH ED 2 PFSH: Medical History (Updated 08/04/24 @ 18:21 by Akbar Sanon MD) Persistent headaches Left-sided chest wall pain Right-sided chest wall pain Right sided abdominal pain Chronic nausea Osteoarthritis of left knee Constipation by delayed colonic transit CKD stage 2 due to type 2 diabetes mellitus Diverticulosis large intestine w/o perforation or abscess w/o bleeding COVID-19 Positive test for COVID-19 05/17/2021 Chronic generalized abdominal pain Morbid obesity with body mass index of 45.0-49.9 in adult Primary localized osteoarthritis of knees, bilateral Breast lump on left side at 6 o'clock position Insomnia Osteoarthritis (arthritis due to wear and tear of joints) thoracic and Lumbar spine, knees & multiple joints Hypertension Type 2 diabetes mellitus Hx of pulmonary embolus Asthma History of chronic pain Diabetic neuropathy Hyperlipidemia Surgical History Status post right knee replacement Hx of right knee surgery 30 yrs ago [facility] Family History Other Cancer Diabetes Hyperlipidemia Hypertension LVH (left ventricular hypertrophy) Stroke Social History Smoking and tobacco/nicotine status: never used tobacco/nicotine Alcohol intake: never Substance/Drug Use: never Caregiver/support person: Yes Lives independently: Yes Household members: spouse Marital status: Number of children: 1 Number of grandchildren: 2 Current occupational status: retired Physical Exam 2 Const: COMMON NORMALS: no acute distress, patient oriented x3 and healthy appearing HENMT: COMMON NORMALS: normocephalic and atraumatic HEAD & SCALP: n ormocephalic and atraumatic Eye: COMMON NORMALS: Equal, round and reactive pupils present and EOMs intact bilaterally PUPIL: Yes Equal, round and reactive pupils present Neck/C-Spine: COMMON NORMALS: full ROM and supple Chest: COMMONS NORMALS: normal inspection of the chest and normal palpation of entire chest wall Resp: COMMON NORMALS: normal respiratory effort, No retractions, No use of accessory muscles and clear to auscultation bilaterally AUSCULTATION: clear to auscultation bilaterally Cardio: COMMON NORMALS: regular rate, regular rhythm and No murmurs present (Cardio) RATE: regular rate RHYTHM: regular rhythm GI: COMMON NORMALS: Normal to inspection, nondistended, normoactive bowel sounds present, Soft to palpation, non-tender and no masses PALPATION: Yes Soft to palpation Extremity: COMMON NORMALS: normal to inspection and full ROM Neuro: COMMON NORMALS: patient oriented x3, moves all extremities and no focal motor deficits Psych: COMMON NORMALS: mental status grossly normal, Normal thought process present and cooperative THOUGHT PROCESS: Normal thought process present Skin: COMMON NORMALS: no rashes or lesions noted and no wounds GENERAL SKIN EXAM: no rashes or lesions noted Course 2 Vital Signs: Vital signs: Vital Signs Pulse Rate 62 08/04/24 18:37 Respiratory Rate 14 08/04/24 18:37 Blood Pressure 146/58 08/04/24 18:37 Pulse Oximetry 99 08/04/24 18:37 MDM - Dizziness Medical Decision Making Patient presents for chest pain along with dizziness she been having chest pains for months she actually sees cardiology tomorrow EKG troponin here negative she feels improved she has no signs of dissection or pulmonary embolism her D-dimer was negative. She also has dizziness that is resolved her head CT is normal no signs of posterior stroke she stable for discharge follow-up with cardiology as scheduled tomorrow return if worsening she understands agrees to plan Medical Records I reviewed the patient's medical records. Lab Data I reviewed the patient's lab results. 08/04/24 16:53 08/04/24 16:53 Radiology Impressions Chest X-Ray 08/04/24 15:42 IMPRESSION: Moderate cardiomegaly. Head CT 08/04/24 15:51 IMPRESSION: 1. No evidence of intracranial hemorrhage or mass effect. 2. No acute intracranial findings. Notified Akbar Sanon MD at 08/04/2024 4:06 PM. Head/Neck CTA 08/04/24 16:06 IMPRESSION: No large vessel stenosis or occlusion. IMPRESSION: No stenosis or occlusion. COMMENTS: Consistent with the [place] [employer]'s Incidental Findings Committee white paper (J Am Mil[facility]ys Radiol 2015): In patients aged 35 years and older with an incidental thyroid nodule equal to or greater than 1.[address], MRI or extrathyroidal US, further evaluation with dedicated thyroid US is recommended for patients with normal life expectancy and without comorbidities. For smaller nodules without suspicious features, no further evaluation or follow up is recommended. REFERENCES: NASCET CRITERIA. The degree of stenosis in the cervical segment of the internal carotid artery is based on NASCET criteria. Normal is no stenosis. Mild is less than 50% stenosis. Moderate is 50-69% stenosis. Severe is 70% to 99% stenosis. Total occlusion is no detectable patent lumen. Laboratory Results WBC 9.69 10^3/uL (3.29-11.43) 08/04/24 16:53 RBC 3.94 10^6/uL (3.85-5.65) 08/04/24 16:53 Hgb 11.50 g/dL (11.27-16.99) 08/04/24 16:53 Hct 35.7 % (36-47) L 08/04/24 16:53 MCV 90.6 fl (85-98) 08/04/24 16:53 MCH 29.2 pg (27-33) 08/04/24 16:53 MCHC 32.2 g/dL (30-55) 08/04/24 16:53 RDW 13.5 % (12.1-15.1) 08/04/24 16:53 Plt Count 391 10^3/cmm (157-399) 08/04/24 16:53 MPV 8.7 fL (7.4-10.4) 08/04/24 16:53 Neut % (Auto) 58.4 % 08/04/24 16:53 Lymph % (Auto) 31.1 % 08/04/24 16:53 [place] % (Auto) 6.1 % 08/04/24 16:53 Eos % (Auto) 3.4 % 08/04/24 16:53 Baso % (Auto) 0.8 % 08/04/24 16:53 Neut # (Auto) 5.66 10^3/uL (1.8-7.7) 08/04/24 16:53 Lymph # (Auto) 3.0 10^3/uL (0.8-4.8) 08/04/24 16:53 [place] # (Auto) 0.6 10^3/uL (0.2-0.9) 08/04/24 16:53 Eos # (Auto) 0.3 10^3/uL (0.0-0.8) 08/04/24 16:53 Baso # (Auto) 0.1 10^3/uL (0.0-0.1) 08/04/24 16:53 Nucleated RBC % (auto) 0 % 08/04/24 16:53 Nucleated RBCs # 0.0 /100WBC 08/04/24 16:53 PT 15.60 SECONDS (12.1-14.9) H 08/04/24 16:53 INR 1.20 (0.8-1.2) 08/04/24 16:53 APTT 29.1 SECONDS (23.9-36.7) 08/04/24 16:53 D-Dimer 0.29 ug/mLFEU (0-0.59) 08/04/24 16:53 Sodium 136 mmol/L (136-145) 08/04/24 16:53 Potassium 4.2 mmol/L (3.5-5.1) 08/04/24 16:53 Chloride 99 mmol/L (98-107) 08/04/24 16:53 Carbon Dioxide 26 mmol/L (22-29) 08/04/24 16:53 Anion Gap 15.2 (5-19) 08/04/24 16:53 BUN 23 mg/dL (8-23) 08/04/24 16:53 Creatinine 1.4 mg/dL (0.5-0.9) H 08/04/24 16:53 GFR Calculation 38.1 mL/min (90-130) L 08/04/24 16:53 Glucose 124 mg/dL (65-115) H 08/04/24 16:53 POC Glucose 141 mg/dL (70-110) H 08/04/24 15:53 Calculated Osmolality 287 mOsm/kg (285-295) 08/04/24 16:53 Calcium 10.5 mg/dL (8.5-10.5) 08/04/24 16:53 Total Bilirubin 0.2 mg/dL (0.15-1.2) 08/04/24 16:53 AST 15 U/L (0-32) 08/04/24 16:53 ALT 15 U/L (0-33) 08/04/24 16:53 Alkaline Phosphatase 69 U/L (35-105) 08/04/24 16:53 Troponin T Baseline 10 ng/L (0-10) 08/04/24 16:53 Total Protein 5.9 g/dL (6.6-8.7) L 08/04/24 16:53 Albumin 3.9 g/dL (3.5-5.2) 08/04/24 16:53 Globulin 2.0 g/dL (1.3-4.6) 08/04/24 16:53 Lipase 18 U/L (13-60) 08/04/24 16:53 Urine Color Yellow (Yellow) 08/04/24 17:54 Urine Appearance Clear (CLEAR) 08/04/24 17:54 Urine pH 5.0 (5-7) 08/04/24 17:54 Ur Specific [place] 1.070 (1.005-1.030) H 08/04/24 17:54 Urine Protein Negative (Negative) 08/04/24 17:54 Urine Glucose (UA) Negative (Normal) 08/04/24 17:54 Urine Ketones Negative (Negative) 08/04/24 17:54 Urine Blood Negative (Negative) 08/04/24 17:54 Urine Nitrate Positive (Negative) A 08/04/24 17:54 Urine Bilirubin Negative (Negative) 08/04/24 17:54 Urine Urobilinogen 0.2 mg/dL (Negative) 08/04/24 17:54 Ur Leukocyte Esterase Negative (Negative) 08/04/24 17:54 Urine RBC 0-2 /hpf (0-2) 08/04/24 17:54 Urine WBC 11-20 /hpf (0-5) H 08/04/24 17:54 Ur Squamous Epith Cells 6-10 /hpf (0-5) 08/04/24 17:54 Amorphous Sediment Not Reportable 08/04/24 17:54 Urine Bacteria 1+ /hpf (NONE) H 08/04/24 17:54 Hyaline Casts 0.81 /lpf 08/04/24 17:54 Urine Opiates Screen Negative ng/mL (Negative) 08/04/24 17:54 Ur Barbiturates Screen Negative ng/mL (Negative) 08/04/24 17:54 Ur Phencyclidine Scrn Negative ng/mL (Negative) 08/04/24 17:54 Ur Amphetamines Screen Negative ng/mL (Negative) 08/04/24 17:54 U Benzodiazepines Scrn Negative ng/mL (Negative) 08/04/24 17:54 Urine Cocaine Screen Negative ng/mL (Negative) 08/04/24 17:54 U Marijuana (THC) Screen Negative ng/mL (Negative) 08/04/24 17:54 All radiology interpretation(s) finalized by discharge EKG Data EKG 1: I personally reviewed and interpreted this EKG as follows: EKG interpretation date: 08/04/24 EKG interpretation time: 15:47 Interpretation: nsr hr [address] elevation qrs 103 qtc 421 Discharge Plan Discharge Patient Disposition: Home Clinical Impression: Chest pain, Dizziness Condition: Stable Prescriptions: No Action budesonide 0.5 mg/2 mL suspension for nebulization 0.5 mg inhalation TID PRN (Reason: SOB or wheezing) Qty: 180 2RF nitroglycerin [Nitrostat] 0.4 mg tablet, sublingual 0.4 mg sublingual Q5M PRN (Reason: chest pain) Qty: 25 3RF Rx Instructions: do not exceed 3 doses per episode dicyclomine 20 mg tablet 20 mg PO .q 6 hr prn PRN (Reason: abdominal pain) Qty: 30 1RF prednisone 20 mg tablet 60 mg PO DAILY 5 Days Qty: 15 0RF loratadine 10 mg tablet 10 mg PO DAILY PRN (Reason: drainage) Qty: 30 1RF isosorbide mononitrate 30 mg tablet extended release 24 hr 15 mg PO BID Qty: 90 3RF valsartan-hydrochlorothiazide 320-25 mg tablet 0.5 tab PO BID Qty: 45 3RF methocarbamol 750 mg tablet 750 mg PO Q8H PRN (Reason: back pain) Qty: 30 0RF topiramate 25 mg tablet 25 mg PO DAILY Qty: 30 0RF (DME) OneTouch Verio test strips Strip See Rx Instructions .Route Qty: 100 3RF Rx Instructions: Check BS twice a day. celecoxib 200 mg capsule 200 mg PO BID PRN (Reason: pain) 90 Days Qty: 180 2RF fluticasone propion-salmeterol 250-50 mcg/dose blister with device See Rx Instructions .ROUTE .COMPLEX Qty: 60 0RF Dose Instruction: INHALE 1 DOSE BY MOUTH TWICE DAILY Rx Instructions: INHALE 1 DOSE BY MOUTH TWICE DAILY amitriptyline 50 mg tablet 50 mg PO BEDTIME Qty: 90 1RF Eliquis 5 mg tablet 5 mg PO BID Qty: 180 1RF ondansetron 8 mg tablet,disintegrating 8 mg PO Q12H PRN (Reason: nausea and vomiting) Qty: 60 1RF albuterol sulfate 90 mcg/actuation HFA aerosol inhaler See Rx Instructions .ROUTE .COMPLEX Qty: 9 0RF Dose Instruction: INHALE 2 PUFFS BY MOUTH EVERY 6 HOURS NEEDED FOR SHORTNESS OF BREATH FOR WHEEZING Rx Instructions: INHALE 2 PUFFS BY MOUTH EVERY 6 HOURS NEEDED FOR SHORTNESS OF BREATH FOR WHEEZING (DME) lancets 23 gauge misc See Rx Instructions .Route Qty: 100 3RF Rx Instructions: As directed (DME) blood sugar diagnostic Strip See Rx Instructions .Route Qty: 100 3RF Rx Instructions: As directed (DME) blood-glucose meter Misc See Rx Instructions .Route Qty: 1 0RF Rx Instructions: As directed insulin glargine U-300 conc 300 unit/mL (3 mL) insulin pen 30 unit SUBCUT DAILY PRN (Reason: Insulin for diabetes) Qty: 6 3RF Rx Instructions: Sliding scale for her daily doses montelukast 10 mg tablet See Rx Instructions .ROUTE .COMPLEX Qty: 90 0RF Dose Instruction: Take 1 tablet by mouth once daily Rx Instructions: Take 1 tablet by mouth once daily zolpidem 10 mg tablet 10 mg PO .qhs PRN (Reason: insomnia) 30 Days Qty: 60 3RF Rx Instructions: 1 or 2 tablets at bedtime for sleep hydroxyzine HCl 50 mg tablet 50 mg PO Q8H PRN (Reason: nauea/pain) Qty: 90 1RF tramadol 50 mg tablet 100 mg PO Q8H PRN (Reason: pain, severe) Qty: 180 1RF Rx Instructions: refill on or after 30-day intervals tizanidine 4 mg tablet 4 mg PO Q8H PRN (Reason: muscle spasticity) Qty: 90 1RF metformin 1,000 mg tablet See Rx Instructions .ROUTE .COMPLEX Qty: 180 0RF Dose Instruction: Take 1 tablet by mouth twice daily Rx Instructions: Take 1 tablet by mouth twice daily carvedilol 12.5 mg tablet See Rx Instructions .ROUTE .COMPLEX Qty: 270 3RF Dose Instruction: TAKE 1 & 1/2 (ONE & ONE-HALF) TABLETS BY MOUTH TWICE DAILY WITH FOOD OR MEAL Rx Instructions: TAKE 1 & 1/2 (ONE & ONE-HALF) TABLETS BY MOUTH TWICE DAILY WITH FOOD OR MEAL lovastatin 20 mg tablet See Rx Instructions .ROUTE .COMPLEX Qty: 90 0RF Dose Instruction: Take 1 tablet by mouth once daily Rx Instructions: Take 1 tablet by mouth once daily multivitamin Tablet 1 tab PO DAILY folic acid 1 mg Tablet 1 mg PO DAILY cholecalciferol (vitamin D3) [Vitamin D3] 25 mcg (1,000 unit) Capsule 25 mcg PO DAILY Discharge Orders: Discharge ED (Routine); Ordered 08/04/24 Ordered By: Akbar Sanon Referrals: Sim Maddox MD [Primary Care Provider] - Discharge Diet: Advance as tolerated Discharge Activity: Resume usual activity Patient Instructions: Chest Pain (ED), Dizziness (ED) Coding Level of Care Code ED Winch Operator for Beck Barillas NIH stroke score NIHSS Level Of Consciousness - 1a: 0 Level Of Consciousness Questions - 1b: Both Correct Level Of Consciousness Commands - 1c: Both Correct Best Gaze - 2: Normal Visual Rose - 3: No Visual Loss Facial Palsy - 4: Normal Motor Arm Right - 5: No Drift Motor Arm Left - 5: No Drift Motor Leg Right - 6: No Drift Motor Leg Left - 6: No Drift Limb Ataxia - 7: Absent Sensory - 8: Normal Best Language - 9: No Aphasia Dysarthia - 10: Normal Extinction And Inattention - 11: 0 Score Total Score: 0
[2024-08-04] MEDS: iohexol 350 mg/mL 500 mL Btl (per mL) IV (16:19)
[2024-08-04 17:11] LABS: Basophils # 0.1 10^3/uL (0.0-0.1); Basophils % 0.8 %; Eosinophils # 0.3 10^3/uL (0.0-0.8); Eosinophils % 3.4 %; Hematocrit 35.7 % (36-47); Lymphocytes % 31.1 %; Mean Corpuscular HGB Conc 32.2 g/dL (30-55); Mean Corpuscular Hemoglobin 29.2 pg (27-33); Mean Corpuscular Volume 90.6 fl (85-98); Mean Platelet Volume 8.7 fL (7.4-10.4); Monocytes # 0.6 10^3/uL (0.2-0.9); Monocytes % 6.1 %; Neutrophils # 5.66 10^3/uL (1.8-7.7); Neutrophils % 58.4 %; Nucleated Red Blood Cells % 0 %; Platelet Count 391 10^3/cmm (157-399); Red Blood Count 3.94 10^6/uL (3.85-5.65); Red Cell Distribution Width 13.5 % (12.1-15.1); White Blood Count 9.69 10^3/uL (3.29-11.43)
[2024-08-04 17:23] LABS: Partial Thromboplastin Time 29.1 SECONDS (23.9-36.7)
[2024-08-04 17:25] LABS: D Dimer 0.29 ug/mLFEU (0-0.59)
[2024-08-04] MEDS: meclizine 25 mg tablet 50 MG PO (17:29)
[2024-08-04 17:32] VITALS: BP 140/57; PULSE 86; RESP 20; O2SAT 100
[2024-08-04 17:32] LABS: Troponin(5th) Baseline 10 ng/L (0-10)
[2024-08-04 17:34] LABS: Alanine Aminotransferase 15 U/L (0-33); Albumin Level 3.9 g/dL (3.5-5.2); Alkaline Phosphatase 69 U/L (35-105); Anion Gap 15.2 (5-19); Aspartate Amino Transferase 15 U/L (0-32); Blood Urea Nitrogen 23 mg/dL (8-23); Calcium 10.5 mg/dL (8.5-10.5); Carbon Dioxide 26 mmol/L (22-29); Chloride 99 mmol/L (98-107); Creatinine Clr Calc Pharmacy 60.7805; Glomerular Filtration Rate 38.1 mL/min (90-130); Glucose 124 mg/dL (65-115); Lipase 18 U/L (13-60); Osmolality Calculated 287 mOsm/kg (285-295); Potassium 4.2 mmol/L (3.5-5.1); Sodium 136 mmol/L (136-145); Total Bilirubin 0.2 mg/dL (0.15-1.2); Total Protein 5.9 g/dL (6.6-8.7)
[2024-08-04 18:00] VITALS: BP 147/86; PULSE 63; RESP 13; O2SAT 98
[2024-08-04 18:09] LABS: Bilirubin Urine Negative (Negative); Blood Urine Negative (Negative); Glucose Urine UA Negative (Normal); Ketones Urine Negative (Negative); Leukocyte Esterase Urine Negative (Negative); Nitrate Urine Positive (Negative); Protein Urine Negative (Negative); Urine Appearance Clear (CLEAR); Urine Color Yellow (Yellow); Urobilinogen Urine 0.2 mg/dL (Negative)
[2024-08-04 18:11] LABS: Add Urine Microscopic? YES; Bacteria Urine 1+ /hpf; Hyaline Casts Urine 0.81 /lpf; RBC Urine 0-2 /hpf (0-2)
[2024-08-04 18:16] LABS: Amphetamines Screen Urine Negative (Negative); Barbiturates Screen Urine Negative (Negative); Benzodiazepines Screen Urine Negative (Negative); Cocaine Screen Urine Negative (Negative); Opiate Screen Urine Negative (Negative); PCP Screen Urine Negative (Negative); THC Screen Urine Negative (Negative)
[2024-08-04 18:37] VITALS: BP 146/58; PULSE 62; RESP 14; O2SAT 99
== END 2024-08-04 18:38 | disposition home or self-care (01) ==
PROVIDERS: Emergency Provider Emergency Medicine; PCP Family Medicine Adult Medicine
DX: R07.9 Chest pain, unspecified (principal); R42 Dizziness and giddiness; Z79.01 Long term (current) use of anticoagulants; Z79.4 Long term (current) use of insulin; Z79.84 Long term (current) use of oral hypoglycemic drugs; E11.22 Type 2 diabetes mellitus with diabetic chronic kidney disease; I12.9 Hypertensive chronic kidney disease with stage 1 through stage 4 chronic kidney disease, or unspecified chronic kidney disease; N18.2 Chronic kidney disease, stage 2 (mild); E78.5 Hyperlipidemia, unspecified; Z86.711 Personal history of pulmonary embolism
CPT/HCPCS: 36415; 36416; 70450; 70496; 70498; 71045; 80053; 80306; 81001; 82962; 83690; 84484; 85025; 85378; 85610; 85730; 93005; 99285; J8597

== ENCOUNTER → 2024-08-05 09:15 | Outpatient (BNVA) | payer MEDICARE, SELFPAY | PROVIDERS: PCP Family Medicine Adult Medicine; Visit Provider Nurse Practitioner Family | DX: I25.9 Chronic ischemic heart disease, unspecified (principal); I12.9 Hypertensive chronic kidney disease with stage 1 through stage 4 chronic kidney disease, or unspecified chronic kidney disease; E11.22 Type 2 diabetes mellitus with diabetic chronic kidney disease; N18.2 Chronic kidney disease, stage 2 (mild); I20.89 Other forms of angina pectoris; R51.9 Headache, unspecified; Z79.4 Long term (current) use of insulin | CPT/HCPCS: 99214 ==

== ENCOUNTER 2024-08-18 07:25 | Outpatient (CLI) | payer MEDICARE, SELFPAY ==
[2024-08-18 07:40] VITALS: BMI 45.7
--- NOTE | 2024-08-18 07:43 | NMCV_ITS ---
NM philip perf SPECT r/s* [id number] Arelis Nathan Age: 63 Gender: F : 1960 Exam Date: 08/18/2024 07:43 Ordering Phys: Miesha Moseley Technologist: MATEO Donovan Exam Location: [facility] Indications: cp STRESS TEST Please see separate stress test report in [facility] for full findings IMAGE PROTOCOL Rest/Stress 1 Lexiscan Day Radiopharmaceutical Dose (mCi) Administration Site Administered by Rest: Tc-99m 10.4 IV MATEO Donovan Sestamibi Stress:Tc-99m 33 IV MATEO Galicia Sestamibi Rest: 18-Aug-2024 60 Discovery 630 Stress: 18-Aug-2024 30 Discovery 630 0.4mg Lexiscan. Images obtained in supine and prone position. SPECT RESULTS Technical Quality: Good Raw Data Analysis: Breast attenuation, Soft tissue attenuation Image Corrections: No attenuation or motion correction applied Summed Stress Score: 10 Summed Rest Score: 11 Summed Difference Score: 3 PERFUSION FINDINGS There is a large area of reduced radiotracer uptake in inferolateral and inferior lees. This improves on prone imaging. This is consistent with attenuation artifact vs prior infarct with minimal cecy-infarct ischemia. FUNCTIONAL RESULTS (calculated via Gated SPECT) Stress Image LV EF (%): 75 Stress EDV (mL):96 TID: 1.06 Stress ESV (mL):24 FUNCTIONAL FINDINGS: There is normal left ventricular systolic function. IMPRESSIONS 1. Attenuation artifact seen in the inferior and inferolateral lees. Less likely medium to large area of prior infarct with minimal cecy-infarct ischemia. Clinical correlation is required 2. LV systolic function is normal Cristian Love MD (Electronically Signed) Final Date: 18 August 2024 11:25 S
--- NOTE | 2024-08-18 07:43 | ECG_ITS ---
[facility] Date: 2024-08-18 Pat Name: Arelis Nathan Department: Room: Gender: Female Construction Driver: : 1960 Requested By: Miesha Moseley Order Number: [id number] Andrei MD: Cristian Love M.D. Interpretive Statements LEXISCAN SESTAMIBI STRESS TEST Procedure: At the baseline, the blood pressure was 129/72 mmHg with a heart rate of 74 bpm. The electrocardiogram showed normal sinus rhythm, normal axis with normal ST and T's. The Lexiscan was infused over a period of 20 seconds. A total of 0.4 mg of Lexiscan was infused. The stress phase was continued for a total of 5 minutes. Heart rate was at the end of stress phase was 80 bpm and a blood pressure of 123/73 mmHg. The EKG at the peak infusion revealed normal sinus rhythm with no significant ST-T wave changes. Sestamibi was injected 20 seconds after the Lexiscan infusion. Blood pressure at the end of recovery phase was 114/63 mmHg with a heart rate of 73 bpm. Conclusion: 1. Normal EKG response to Lexiscan infusion 2. No Lexiscan induced chest pain or cardiac arrhythmia. 3. Normal blood pressure and heart rate response. 4. Sestamibi/sestamibi perfusion scan pending; see separate report. Electronically Signed On 08-18-2024 17:24:13 LOCKSTITCH SLEEVE SETTER by Cristian Love M.D. [id number]
[2024-08-18] MEDS: regadenoson 0.4 Mg/5 ml Syringe IVP (09:28)
[2024-08-18 09:43] VITALS: BP 116/64; PULSE 73
== END 2024-08-18 07:26 | disposition home or self-care (01) ==
LOC: CDL 07:27
PROVIDERS: PCP Family Medicine Adult Medicine; Visit Provider Nurse Practitioner Family
DX: I20.89 Other forms of angina pectoris (principal); R06.09 Other forms of dyspnea; R68.89 Other general symptoms and signs; R94.39 Abnormal result of other cardiovascular function study
CPT/HCPCS: 36415; 78452; 93017; 96374; A9500; J2785

== ENCOUNTER 2024-08-25 07:55 | Outpatient (CLI) | payer MEDICARE, SELFPAY ==
[2024-08-25] MEDS: iohexol 350 mg/mL 500 mL Btl (per mL) PO (08:40)
--- NOTE | 2024-08-25 08:45 | CT_ITS ---
WS: [id number] CT ABDOMEN AND PELVIS WITH CONTRAST HISTORY: abdominal pain, chronic pain with intermittent nausea. Vomiting and diarrhea. TECHNIQUE: Imaging performed of the abdomen and pelvis with IV contrast. Single phase imaging of the abdomen. Coronal and sagittal reformats are submitted. All CT scans at [place] use at [address] one of these dose optimization techniques: automated exposure control; mA and/or kV adjustment per patient size (includes targeted exams where dose is matched to clinical indication); or iterative re construction. IV CONTRAST: Omnipaque 350; 100 mL IV. Oral contrast: Yes. DLP: 1486.32 mGy.cm COMPARISON: 07/19/2021 Lower thorax: Reidentified is a cystic mass abutting the RIGHT atrium measuring 1.6 x 4.1 cm consiste nt with a pericardial cyst. Mild enlargement of the heart. No hiatal hernia. Liver/biliary system: Normal size with no intrahepatic dilatation. Gallbladder: Normal. No gallstones or wall thickening. No pericholecystic fluid. Pancreas: Normal size pancreas and pancreatic duct. No adjacent inflammation. Spleen: Normal size spleen. No mass or infarct. Adrenal glands: Normal. Right kidney: Normal size kidney. No renal obstruction or hydronephrosis. Mild perinephric stranding. No change in a 6 mm cortical cyst from the mid kidney. Left kidney: Mild perinephric stranding with no obstruction. No mass. Aorta: Mild atherosclerosis with no aneurysm. Lymphadenopathy: None. Free fluid: None. GI tract: No obstruction. Normal appendix. Moderate diverticular burden throughout the mid to distal colon. No acute diverticulitis. Sigmoid lumen is moderately narrowed. Abdominal wall: Ventral abdominal wall hernia contains fat only. This is a very tiny umbilical hernia . Pelvis: Normally distended urinary bladder. There is artifact through the pelvis secondary to patient 's body habitus. Uterus is present. No ascites or mass. Bones: No destructive bone process. CT/CT abdomen pelvis w con* [id number] IMPRESSION: 1. No acute abdominal or pelvic abnormalities. 2. Moderate diverticular burden in the sigmoid colon with moderate narrowing o f the lumen. No acute diverticulitis. No abscess. 3. No ascites or adenopathy. 4. No renal obstruction. 5. Stable pericardial cyst.
[2024-08-25] MEDS: iohexol 350 mg/mL 500 mL Btl (per mL) IV (09:11)
== END 2024-08-25 07:56 | disposition home or self-care (01) ==
DX: K57.90 Diverticulosis of intestine, part unspecified, without perforation or abscess without bleeding (principal); I31.8 Other specified diseases of pericardium; N28.1 Cyst of kidney, acquired; K42.9 Umbilical hernia without obstruction or gangrene; R10.9 Unspecified abdominal pain; G89.29 Other chronic pain
CPT/HCPCS: 74177

== ENCOUNTER → 2024-08-26 13:47 | Outpatient (BNVA) | payer MEDICARE, SELFPAY | PROVIDERS: Visit Provider Internal Medicine Cardiovascular Disease | DX: R07.89 Other chest pain (principal); R00.2 Palpitations; E78.2 Mixed hyperlipidemia; Z86.711 Personal history of pulmonary embolism; I10 Essential (primary) hypertension; I35.0 Nonrheumatic aortic (valve) stenosis; E11.49 Type 2 diabetes mellitus with other diabetic neurological complication; E66.01 Morbid (severe) obesity due to excess calories; Z68.42 Body mass index [BMI] 45.0-49.9, adult; Z79.4 Long term (current) use of insulin | CPT/HCPCS: 99214 ==

== ENCOUNTER 2024-10-27 12:54 | Outpatient (CLI) | payer MEDICARE, SELFPAY ==
[2024-10-27 13:13] LABS: Basophils # 0.1 10^3/uL (0.0-0.1); Eosinophils # 0.3 10^3/uL (0.0-0.8); Eosinophils % 2.7 %; Lymphocytes # 3.3 10^3/uL (0.8-4.8); Lymphocytes % 35.1 %; Mean Corpuscular HGB Conc 32.2 g/dL (30-55); Mean Corpuscular Hemoglobin 29.4 pg (27-33); Mean Corpuscular Volume 91.1 fl (85-98); Mean Platelet Volume 8.2 fL (7.4-10.4); Monocytes # 0.6 10^3/uL (0.2-0.9); Monocytes % 6.3 %; Neutrophils # 5.07 10^3/uL (1.8-7.7); Neutrophils % 54.7 %; Nucleated Red Blood Cells % 0 %; Platelet Count 389 10^3/cmm (157-399); Red Blood Count 3.95 10^6/uL (3.85-5.65); Red Cell Distribution Width 13.8 % (12.1-15.1); White Blood Count 9.26 10^3/uL (3.29-11.43)
[2024-10-27 15:26] LABS: Alanine Aminotransferase 15 U/L (0-33); Albumin Level 4.1 g/dL (3.5-5.2); Alkaline Phosphatase 66 U/L (35-105); Anion Gap 15.6 (5-19); Aspartate Amino Transferase 15 U/L (0-32); Blood Urea Nitrogen 27 mg/dL (8-23); Calcium 10.6 mg/dL (8.5-10.5); Carbon Dioxide 28 mmol/L (22-29); Chloride 100 mmol/L (98-107); Globulin 2.5 g/dL (1.3-4.6); Glomerular Filtration Rate 50.2 mL/min (90-130); Glucose 111 mg/dL (65-115); Osmolality Calculated 294 mOsm/kg (285-295); Potassium 4.6 mmol/L (3.5-5.1); Sodium 139 mmol/L (136-145); Total Bilirubin 0.3 mg/dL (0.15-1.2); Total Protein 6.6 g/dL (6.6-8.7)
== END 2024-10-27 12:55 | disposition home or self-care (01) ==
PROVIDERS: Visit Provider Internal Medicine Cardiovascular Disease
DX: R07.9 Chest pain, unspecified (principal); Z86.711 Personal history of pulmonary embolism; I35.0 Nonrheumatic aortic (valve) stenosis; R00.2 Palpitations; E11.49 Type 2 diabetes mellitus with other diabetic neurological complication
CPT/HCPCS: 36415; 80053; 85025

== ENCOUNTER 2024-11-05 11:29 | Outpatient (CLI) | payer MEDICARE, SELFPAY ==
[2024-11-05 12:07] LABS: Anion Gap 17.2 (5-19); Blood Urea Nitrogen 24 mg/dL (8-23); Calcium 10.4 mg/dL (8.5-10.5); Carbon Dioxide 26 mmol/L (22-29); Chloride 96 mmol/L (98-107); Glomerular Filtration Rate 50.2 mL/min (90-130); Glucose 139 mg/dL (65-115); Osmolality Calculated 286 mOsm/kg (285-295); Potassium 4.2 mmol/L (3.5-5.1); Sodium 135 mmol/L (136-145)
== END 2024-11-05 11:30 | disposition home or self-care (01) ==
PROVIDERS: PCP Family Medicine; Visit Provider Internal Medicine Cardiovascular Disease
DX: E86.0 Dehydration (principal)
CPT/HCPCS: 80048

== ENCOUNTER 2024-11-08 07:31 | Outpatient (CLI) | payer MEDICARE, SELFPAY ==
[2024-11-08] VITALS (16 sets, daily range): BP systolic 116–146; BP diastolic 61–95; PULSE 60–79; RESP 13–18; TEMP 36.7; O2SAT 96–100; BMI 45.6
--- NOTE | 2024-11-08 07:42 | XACV_ITS ---
Exam Room: 2 Ht: 173 cm Wt: 136 kg BSA: 2.63 m2 Gender: Female : 1960 Any Known Allergies: Other Exam Priority: Routine Procedure(s): Procedure Description: Diagnostic procedure Procedure Description: Left Heart Catheterization Procedure Description: Right Heart Catheterization Procedure Description: O2 saturation Isaac GARLAND; Diagnostic Cath Status: Elective Diagnostic Findings * INDICATION: Dyspnea on exertion/CCS class 2-3/ abnormal stress test. * Left Main has no significant disease. * Circumflex has no significant disease. * Right Coronary Artery has mild luminal irregularities. * Proximal Left Anterior Descending: moderate 40-50% stenosis, RILEY: 3 flow. * Coronary angiography shows right dominance. PCI Status: Elective Interventional Findings * After diagnostic images, we performed IFR of proximal LAD. Nonischemic value of 0.92 was obtained. Conclusions 1. There is moderate LAD stenosis s/p iFR that is non-ischemic. Medical therapy. 2. Moderate to severe pulmonary hypertension. Recommendations * Aggressive medical therapy. Advised CPAP compliance. * Outpatient cardiology follow up in 2 weeks. Interventional RX Recommendation: medical therapy and/or counseling Diagnostic RX Recommendation: medical therapy and/or counseling Anticoagulation: Heparin Pressures Phase:Rest AO : 97 / 53 ( 73 ) @ 9:09:00 AM 94 / 39 ( 61 ) @ 9:16:00 AM RV : 53 / 6 / 17 @ 9:02:00 AM PA : 57 / 20 ( 34 ) @ 9:01:00 AM RA : a wave = 19 v wave = 17 mean = 14 @ 9:02:00 AM PCW : a wave = 25 v wave = 26 mean = 21 @ 9:01:00 AM O2 Content Phase:Rest PA : O2 Content O2: 68.3 @ 9:16:00 AM Saturations Phase:Rest AO : 95 @ 9:09:00 AM PA : 68 @ 9:16:00 AM Cardiac Output Phase:Rest Patrick : 5 @ 9:53:34 AM Patrick Cardiac Index: 2 @ 9:53:34 AM Flow Phase:Rest Qp : 5 @ 9:53:34 AM Qs : 5 @ 9:53:34 AM Clinical Evaluation EBL: 5mL-10mL Procedural Details Procedure Consent Obtained. Pre-Procedure Time Out. Identified patient by full name and date of as verbalized by the patient/guarantor. Does the consent match the physician's order: Yes. Accurate & Complete Informed Consent: Yes. Inpatient/Outpatient History & Physical on Chart: Yes. If H&P is completed, is and addenduem needed: No. Visualize and Verify Site with Patient/Guarantor: N/A. Relevant Radiology Images available: Yes. The risks, benefits, and alternatives of sedation and/or procedure were discussed by physician. The patient agrees to continue. Procedure started. [facility] Clinical Fraility Score: 3: Managing Well. Erecting Engineer Indications: CP at rest/abnormal stress test. Chest Pain Symptom Assessment: Typical Angina Symptoms. Cardiovascular Instability: No. Correct patient, site and procedure confirmed by cath team. PERRLA. Strong, equal hand meters superintendent bilaterally. Lungs clear x 5 lobes. IV Site on Arrival: 20 gauge in the right anticubital for the RHC procedure. IV Site on Arrival: 20 gauge in the left anticubital. IV Fluids: D5/.45% NaCl at KVO. 0 mL infused prior to lab animal technologist. Pre Procedural Pulses: bilateral dorsalis pedis was 3+. Pre Procedural Pulses: bilateral radial was 3+. Pre Procedural Pulses: right posterior tibial was Doppled. Pre Procedural Pulses: left posterior tibial was 1+. PAtietn to be on room air for RHC. right groin was prepped with chloroprep then draped in the usual sterile fashion. right radial was prepped with chloroprep then draped in the usual sterile fashion. right brachial was prepped with chloroprep then draped in the usual sterile fashion. Physician notified. Baseline sample Acquired. HR: 67 BPM. Patient's family in metallurgy laboratory technician wiating room. Dr. Love will update at the completion of the procedure. Equipment: 6F - Radial. Cardiac Cath Pack. ACIST Manifold Kit Model BT 2000. Heparinized Saline (2 units/mL), 1000 mL bag. Physician arrived. Physician scrubbed in. Immediate Pre-Procedure Time Out. Correct Patient: Yes; Correct Procedure: Yes; Correct Site: Yes; Correct Patient Position: Yes; Correct Supplies: Yes; Dried Flammable Prep: Yes; Blood Products Available: N/A;. Wire in the existing PIV in the right AC. Lidocaine 1% infiltrated to the right brachial. [place] catheter inserted. [place] guidewire in through the swan. [place] guidewire out. Oximetry samples were obtained. Normal venous range: 60-85%. Normal arterial range: 95-100%. Pressure measurements obtained. ABG drawn and sent with respiratory therapy. [place] out. Lidocaine 1% infiltrated to the right radial. Arterial access obtained. Ashley RT tech, called to run sats. A 5 [place] TIG catheter in over the standard J wire. Multiple views taken of right coronary artery. Catheter redirected to the LCA. Multiple views taken of left coronary artery. Oxygen started at 2liters/min via nasal canula. Catheter removed over the exchange J wire. 6 [place] XB 3 guide catheter was inserted over the exchange J wire. iFR guidewire was advanced through the guide catheter to lesion in the prox LAD. iFR spot of the proximal LAD 0.92 with a pullback of 0.93. iFR wire out. Guide catheter out. Dr. Love scrubbed out. A Manual Compression was successful obtaining hemostatsis at the Right Brachial Vein insertion site. A TR Band was successful obtaining hemostatsis at the Right Radial artery insertion site. Vital chart was stopped. Post Procedure: Pulses reassessed and unchanged. PERRLA. Strong, equal hand meters superintendent bilaterally. No VTE prophylaxis required. Medication's Wasted: Lidocaine 1% = 18 mL. Medication's Wasted: Nitro = 49.5 mg. Total IV fluids: 30 mL. Post-op diagnosis: Moderate Prox LAD stenosis with iFR of 0.92. Severe pulmonary HTN. Complications: none. Estimated blood loss: 5mL-10mL. Responsiveness - Normal response to verbal stimuli; alert and oriented, PERRLA. Airway - Unaffected, no intervention required; spontaneous ventilation. Circulation: W/N/L, pulses unchanged. Nausea/Vomiting: No. Patient transferred by bed to CPRU. Awaitng RT to run [facility] sats. RT Ashley tech, called to run sats per Dr. Ivan joshi. She stated that she would have to call another tech to run them. RT Ashley tech, here to get sats. Sats received. Procedure completed. Access Site Site: Right Brachial Vein Sheath Size: 6 Fr Hemostasis Method: Manual Compression Hemostasis Success: Successful Site: Right Radial artery Sheath Size: 6 Fr Hemostasis Method: TR Band Hemostasis Success: Successful Procedure Medications Start: 8:51 AM Stop: 8:51 AM Medication: Versed Amount: 1 mg Route: I.V. Start: 9:05 AM Stop: 9:05 AM Medication: Nitrogylcerin Amount: 200 mcg Route: I.A. Start: 9:08 AM Stop: 9:08 AM Medication: Versed Amount: 1 mg Route: I.V. Start: 9:08 AM Stop: 9:08 AM Medication: Fentanyl Amount: 25 mcg Route: I.V. Start: 9:09 AM Stop: 9:09 AM Medication: Heparin Amount: 5000 units Route: I.V. Start: 9:13 AM Stop: 9:13 AM Medication: Nitrogylcerin Amount: 300 mcg Route: I.A. Start: 9:14 AM Stop: 9:14 AM Medication: Heparin Amount: 6000 units Route: I.V. Start: 9:15 AM Stop: 9:15 AM Medication: Fentanyl Amount: 25 mcg Route: I.V. I, the attending physician, have reviewed and verified all procedure medications. Yes, all medications given per verbal order History/Risk Factors Hypertension: Yes Dyslipidemia: Yes Peripheral Arterial Disease (PAD): No Myocardial Infarction (IL): No Obesity: Yes Renal Disease: No Tobacco Use: Never Prior Interventions PCI: No CABG: No Valve Surgery: No Report Signatures Finalized by Cristian Love MD on 11/21/2024 12:27 PM
[2024-11-08] MEDS: aspirin 325 mg Tablet PO (08:15)
[2024-11-08] MEDS: diphenhydrAMINE 50 mg Capsule PO (08:15)
--- NOTE | 2024-11-08 08:48 | W.PM.OPSFHP ---
Same Day Surgery H&P Indication for Procedure/HPI DATE OF PROCEDURE: November 08, 2024 CHIEF COMPLAINT/INDICATIONFOR SURGICAL PROCEDURE: CCS class 3 angina/ abnormal stress test PREOP DIAGNOSIS: CCS class 3 angina/ abnormal stress test PLANNED PROCEDURE: Operation Date: 11/08/24 08:30 Proposed Procedures p Cardiac Catheterization - RLHC(Bilateral) - Cristian Love M.D Possible percutaneous coronary intervention 63-year-old woman who has been having chest discomfort episodes and had stress test recently. Stress test was equivocal with possible prior infarct with cecy-infarct ischemia, however given patient's continued symptoms of chest pain and shortness of breath, plan for right and left heart cath. Medications/Allergies* Home Medications ?Medication ?Instructions ?Recorded ?Confirmed ?Type cholecalciferol (vitamin D3) 25 25 mcg PO DAILY 10/03/21 11/08/24 History mcg (1,000 unit) capsule (Vitamin D3) folic acid 1 mg tablet 1 mg PO DAILY 10/03/21 11/08/24 History multivitamin 1 tab PO DAILY 10/03/21 11/08/24 History Allergies/Adverse Reactions Allergy/AdvReac Type Severity Reaction Status Date / Time erythromycin base Allergy Unknown Unresponsiv Verified 08/18/24 07:40 e promethazine (From Phenergan) Allergy ADR-Nausea Verified 08/18/24 07:40 Current Medications: Generic Name Dose Route Start Last Admin Trade Name Freq PRN Reason Stop Dose Admin Sodium Chloride 1,000 mls @ 50 mls/hr 11/08/24 07:43 11/08/24 08:18 Sodium Chloride 0.9% IV 11/09/24 03:42 Not Given .Q20H ONE Pertinent History/Comorbid Conditions* Medical History (Updated 08/26/24 @ 14:42 by Henna Gray MD) Persistent headaches Left-sided chest wall pain Right-sided chest wall pain Right sided abdominal pain Chronic nausea Osteoarthritis of left knee Constipation by delayed colonic transit CKD stage 2 due to type 2 diabetes mellitus Diverticulosis large intestine w/o perforation or abscess w/o bleeding COVID-19 Positive test for COVID-19 05/17/2021 Chronic generalized abdominal pain Morbid obesity with body mass index of 45.0-49.9 in adult Primary localized osteoarthritis of knees, bilateral Breast lump on left side at 6 o'clock position Insomnia Osteoarthritis (arthritis due to wear and tear of joints) thoracic and Lumbar spine, knees & multiple joints Hypertension Type 2 diabetes mellitus Hx of pulmonary embolus Asthma History of chronic pain Diabetic neuropathy Hyperlipidemia Surgical History (Updated 08/13/23 @ 15:54 by Sim Maddox MD) Status post right knee replacement Hx of right knee surgery 30 yrs ago Bernard ANDREA Family History (Updated 08/01/21 @ 12:39 by Rae Castañeda, BLACK) Diabetes Hyperlipidemia LVH (left ventricular hypertrophy) Cancer Hypertension Stroke Social History Smoking and tobacco/nicotine status: never used tobacco/nicotine Alcohol intake: never Substance/Drug Use: never Caregiver/support person: Yes Lives independently: Yes Household members: spouse Marital status: Number of children: 1 Number of grandchildren: 2 Current occupational status: retired Pertinent Exam Findings alert, oriented x 3, clear to auscultation bilaterally and regular rate & rhythm Conscious Sedation Assessment PATIENT ASSESSED PRIOR TO SEDATION, WITH NO CHANGE NOTED: Yes AIRWAY EVAL/ANESTHESIA PLAN: normal airway, ASA IV, Local Anesthesia, Risks, benefits & alternatives of sedation and/or procedure discussed and Patient agrees to continue as planned ADDITIONAL INFORMATION: Moderate sedation Recommendations Surgery/Procedure today (Right heart cath/left heart cath with possible percutaneous coronary intervention) Coding Level of Care Code Acute Code for Chg Fwd
--- NOTE | 2024-11-08 09:38 | PM.PROC ---
Procedure Note: Date of procedure: 11/08/24 Pre-procedure diagnosis: CCS class 3/ abnormal stress test Post-procedure diagnosis: other (Left heart cath/Right heart cath) Procedure: Left main artery is patent. LAD is moderate 40% stenosis in proximal segment. iFR was performed that showed a value of 0.92. Otherwise patent vessels. Severe pulmonary hypertension. Medical therapy. CPAP compliance Estimated blood loss (mL): 10 Complications: None Condition: stable Disposition: same day (Same day discharge) Coding Level of Care Code Acute Code for Beck Barillas
--- NOTE | 2024-11-08 12:52 | PC.NURSE ---
TR Removal Started releasing air from TR band at 1100. 1-2ml air released every 5-15 until band deflated. Band deflated and removed at 1215. No signs of bleeding or hematoma. Clean large bandaid applied over access site. Radial pulse palpable.
== END 2024-11-08 13:25 | disposition home or self-care (01) ==
PROVIDERS: Internal Medicine; PCP Family Medicine; Visit Provider Internal Medicine Cardiovascular Disease
DX: I25.10 Atherosclerotic heart disease of native coronary artery without angina pectoris (principal); I27.20 Pulmonary hypertension, unspecified; E78.5 Hyperlipidemia, unspecified; E66.01 Morbid (severe) obesity due to excess calories; Z68.42 Body mass index [BMI] 45.0-49.9, adult; E11.22 Type 2 diabetes mellitus with diabetic chronic kidney disease; I12.9 Hypertensive chronic kidney disease with stage 1 through stage 4 chronic kidney disease, or unspecified chronic kidney disease; N18.2 Chronic kidney disease, stage 2 (mild); E11.40 Type 2 diabetes mellitus with diabetic neuropathy, unspecified; Z86.711 Personal history of pulmonary embolism; Z82.49 Family history of ischemic heart disease and other diseases of the circulatory system
CPT/HCPCS: 36415; 93456; 93571; 96374; 99152; 99153; C1751; C1769; C1887; C1894; J1644; J2250; J3010; J3490; J7030; J9999; Q0163; Q9967

== ENCOUNTER → 2024-11-19 08:57 | Outpatient (BNVA) | payer MEDICARE, SELFPAY | PROVIDERS: PCP Family Medicine; Referring Provider Family Medicine Adult Medicine; Visit Provider Specialist | DX: R51.9 Headache, unspecified (principal) | CPT/HCPCS: 82607; 85651; 99204 ==

== ENCOUNTER → 2024-11-29 15:57 | Outpatient (BNVA) | payer MEDICARE, SELFPAY | PROVIDERS: PCP Family Medicine; Visit Provider Nurse Practitioner Family | DX: I35.0 Nonrheumatic aortic (valve) stenosis (principal); I10 Essential (primary) hypertension; J45.21 Mild intermittent asthma with (acute) exacerbation; Z86.711 Personal history of pulmonary embolism; I20.89 Other forms of angina pectoris; E78.2 Mixed hyperlipidemia; I27.20 Pulmonary hypertension, unspecified | CPT/HCPCS: 36415; 80048; 99213 ==

== ENCOUNTER 2024-12-06 15:04 | Emergency (ER) | payer MEDICARE, SELFPAY ==
[2024-12-06 15:06] VITALS: BP 134/64; PULSE 73; RESP 16; TEMP 36.3; O2SAT 100
--- NOTE | 2024-12-06 15:08 | ECG_ITS ---
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 Measurements Intervals [place] Rate: 67 P: 32 SC: 213 QRS: 75 QRSD: 96 T: 31 QT: 384 QTc: 406 Interpretive Statements SINUS RHYTHM WITH FIRST DEGREE AV BLOCK LOW QRS VOLTAGE IN PRECORDIAL LEADS [QRS DEFLECTION < 1.0 mV IN CHEST LEADS] Compared to ECG 08/04/2024 15:47:58 First degree AV block now present Low QRS voltage now present ST (T wave) deviation no longer present Electronically Signed On 12-06-2024 20:59:45 CDT by Henna Gray M.D. [id number] [id number]
--- NOTE | 2024-12-06 15:14 | XR_ITS ---
WS: [id number] Exam: XR chest 1V portable [id number] Date/Time of Exam: 12/06/2024 3:16 PM Reason For Exam: dyspnea/cough Comparison 08/04/2024. The heart is enlarged but unchanged in size. The lungs are clear and fully expanded. No pleural effusion noted. The mediastinum and osseous thorax are unremarkable. XR/XR chest 1V portable [id number] IMPRESSION: 1. Cardiac enlargement unchanged. No acute process noted.
--- NOTE | 2024-12-06 15:15 | W.ED.CHESTPA ---
HPI - Chest Pain General: Chief Complaint: Chest Pain Stated Complaint: CHEST PAIN Time Seen by Provider: 12/06/24 15:09 History of Present Illness: 61-year-old female presents emergency room with this episode of shortness of breath and chest discomfort. 1 month ago patient had a right and left heart catheterization showed moderate stenosis of the LAD was nonischemic right heart catheterization showed moderate to severe pulmonary hypertension. They recommended medical management there is no intervention done. Patient was establishing the primary care doctor today and had it a laughing fit after something was said that struck her as funny she ended up having a hard time catching her breath and describes some chest discomfort mostly resolved by high she arrived here. Not had any fever sweats chills or productive cough. Known history of pulmonary hypertension. At the doctor's office she was given nitro and transported to the emergency room. Associated symptoms: Reports dyspnea; Deny abdominal pain or fever(s) Related Data Home Medications ?Medication ?Instructions ?Recorded ?Confirmed cholecalciferol (vitamin D3) 25 25 mcg PO DAILY 10/03/21 12/06/24 mcg (1,000 unit) capsule (Vitamin D3) folic acid 1 mg tablet 1 mg PO DAILY 10/03/21 12/06/24 multivitamin 1 tab PO DAILY 10/03/21 12/06/24 albuterol sulfate 90 mcg/actuation 2 puff inhalation Q6H PRN 12/06/24 12/06/24 aerosol inhaler Shortness Of Breath Or Wheezing lovastatin 20 mg tablet 20 mg PO DAILY 12/06/24 12/06/24 metformin 1,000 mg tablet 1,000 mg PO BID 12/06/24 12/06/24 montelukast 10 mg tablet 10 mg PO DAILY 12/06/24 12/06/24 topiramate 100 mg tablet (Topamax) 100 mg PO BEDTIME 12/06/24 12/06/24 zolpidem 10 mg tablet 10 - 20 mg PO BEDTIME PRN insomnia 12/06/24 12/06/24 Previous Rx's ?Medication ?Instructions ?Recorded blood sugar diagnostic #100 ea 05/13/24 blood-glucose meter #1 ea 05/13/24 lancets 23 gauge #100 ea 05/13/24 isosorbide mononitrate 30 mg 15 mg (1/2 x 30 mg) PO BID #90 tabs 05/24/24 tablet,extended release 24 hr carvedilol 12.5 mg tablet See Rx Instructions .Route 07/22/24 .COMPLEX #270 tabs blood sugar diagnostic (OneTouch #100 ea 08/11/24 Verio test strips) insulin glargine U-300 conc 300 30 unit (0.1 mL) SUBCUT DAILY PRN 08/11/24 unit/mL (3 mL) subcutaneous pen Insulin for diabetes #6 mL nitroglycerin 0.4 mg sublingual 0.4 mg sublingual Q5M PRN chest 08/11/24 tablet (Nitrostat) pain #25 tabs ondansetron 8 mg disintegrating 8 mg PO Q12H PRN nausea and 08/16/24 tablet vomiting #60 tabs apixaban 5 mg tablet (Eliquis) 5 mg PO BID #180 tabs 09/13/24 amitriptyline 50 mg tablet 50 mg PO BEDTIME chronic pain & 10/05/24 sleep #90 tabs tizanidine 4 mg tablet 4 mg PO Q8H PRN muscle spasticity 10/11/24 #90 tabs tramadol 50 mg tablet 100 mg (2 x 50 mg) PO Q8H PRN 10/13/24 pain, severe #180 tabs valsartan 320 0.5 tab PO BID #45 tabs 11/17/24 mg-hydrochlorothiazide 25 mg tablet methocarbamol 750 mg tablet 750 mg PO Q8H PRN back pain #30 12/03/24 tabs hydrocodone 5 mg-acetaminophen 325 1 tab PO Q6H PRN pain #10 tabs 12/06/24 mg tablet isosorbide mononitrate 30 mg 30 mg PO BID #90 tabs 12/06/24 tablet,extended release 24 hr pantoprazole 40 mg tablet,delayed 40 mg PO BID 30 days #60 tabs 12/06/24 release (Protonix) Allergies Allergy/AdvReac Type Severity Reaction Status Date / Time erythromycin base Allergy Unknown Unresponsiv Verified 12/06/24 13:17 e promethazine (From Phenergan) Allergy ADR-Nausea Verified 12/06/24 13:17 Review of Systems Const: Denies: fever(s) or chills Card: Reports: chest pain Resp: Reports: dyspnea and non-productive cough GI: Denies: abdominal pain : Denies: dysuria, urinary frequency or urinary urgency Musc: Denies: neck pain or back pain Skin/Breast: Denies: rash PFSH ED PFSH: Medical History Anxiety Chronic pain Persistent headaches Left-sided chest wall pain Right-sided chest wall pain Right sided abdominal pain Chronic nausea Osteoarthritis of left knee Constipation by delayed colonic transit CKD stage 2 due to type 2 diabetes mellitus Diverticulosis large intestine w/o perforation or abscess w/o bleeding COVID-19 Positive test for COVID-19 05/17/2021 Chronic generalized abdominal pain Morbid obesity with body mass index of 45.0-49.9 in adult Primary localized osteoarthritis of knees, bilateral Breast lump on left side at 6 o'clock position Insomnia Osteoarthritis (arthritis due to wear and tear of joints) thoracic and Lumbar spine, knees & multiple joints Hypertension Type 2 diabetes mellitus Hx of pulmonary embolus Asthma History of chronic pain Diabetic neuropathy Hyperlipidemia Surgical History Status post right knee replacement Hx of right knee surgery 30 yrs ago [facility] Family History Other Cancer Diabetes Hyperlipidemia Hypertension LVH (left ventricular hypertrophy) Stroke Social History Smoking and tobacco/nicotine status: never used tobacco/nicotine Alcohol intake: never Substance/Drug Use: never Caregiver/support person: Yes Lives independently: Yes Household members: spouse Marital status: Number of children: 1 Number of grandchildren: 2 Current occupational status: retired Physical Exam Const: GENERAL APPEARANCE: cooperative ORIENTATION/CONSCIOUSNESS: Yes awake, Yes oriented to person, Yes oriented to place and Yes oriented to time HENMT: COMMON NORMALS: normocephalic, atraumatic and hearing grossly normal bilaterally HEAD & SCALP: normocephalic and atraumatic Resp: COMMON NORMALS: normal respiratory effort, No retractions, No use of accessory muscles and clear to auscultation bilaterally AUSCULTATION: clear to auscultation bilaterally Cardio: COMMON NORMALS: regular rate, regular rhythm and No murmurs present (Cardio) RATE: regular rate RHYTHM: regular rhythm GI: COMMON NORMALS: Soft to palpation and No hepatosplenomegaly present AUSCULTATION: Yes normoactive bowel sounds PALPATION: Yes Soft to palpation, No Tenderness to palpation present (GI), No Guarding due to palpation present (GI) and Yes No hepatosplenomegaly present Extremity: COMMON NORMALS: normal to inspection, capillary refill normal, no clubbing, cyanosis or edema, no calf tenderness and no pedal edema Neuro: SENSORIUM/ORIENTATION: Yes oriented to person, Yes oriented to place and Yes oriented to time Skin: COMMON NORMALS: no rashes or lesions noted GENERAL SKIN EXAM: no rashes or lesions noted Course Vital Signs: Vital signs: Vital Signs Temperature 97.4 F L 12/06/24 15:06 Pulse Rate 61 12/06/24 19:28 Respiratory Rate 19 H 12/06/24 18:37 Blood Pressure 119/64 12/06/24 19:28 Pulse Oximetry 98 12/06/24 19:28 Oxygen Delivery Me thod Room Air 12/06/24 18:37 MDM - Chest Pain Medical Decision Making History reviewed old records reviewed including recent heart catheterization. There is no sign of pneumonia. Pain is really not consistent with acute coronary syndrome troponin is negative EKG do not show any changes she is brief sharp intense pain that will come and go. She had taken nitro at the scene and then was given morphine here she did have some relief of symptoms. She was under the impression that the pain was caused by her pulmonary hypertension reviewed with her how pulmonary hypertension symptoms manifest. There is no evidence of pneumonia pneumothorax or acute coronary syndrome. Based on her vital signs and presenting symptoms I do not believe she is likely to have a pulmonary embolism or dissecting aneurysm however given her severity of reported pain we recommended CTA of the chest to rule out completely. After long discussion with the patient she declines she would prefer to go home. Will discharge patient home hydrocodone for pain return if she has any further problems. Recommend follow-up with her primary care doctor as soon as she is able. Will increase isosorbide mononitrate to 30 mg twice daily. Suspect some of this may be GI because of her esophageal spasm she may need to have EGD done at some time. Medical Records Diagnostic Cath Status: Elective Diagnostic Findings * INDICATION: Dyspnea on exertion/CCS class 2-3/ abnormal stress test. * Left Main has no significant disease. * Circumflex has no significant disease. * Right Coronary Artery has mild luminal irregularities. * Proximal Left Anterior Descending: moderate 40-50% stenosis, RILEY: 3 flow. * Coronary angiography shows right dominance. PCI Status: Elective Interventional Findings * After diagnostic images, we performed IFR of proximal LAD. Nonischemic value of 0.92 was obtained. Conclusions 1. There is moderate LAD stenosis s/p iFR that is non-ischemic. Medical therapy. 2. Moderate to severe pulmonary hypertension. Recommendations * Aggressive medical therapy. Advised CPAP compliance. * Outpatient cardiology follow up in 2 weeks. Lab Data 12/06/24 15:30 12/06/24 15:30 Radiology Impressions Chest X-Ray 12/06/24 15:14 IMPRESSION: 1. Cardiac enlargement unchanged. No acute process noted. Laboratory Results WBC 10.56 10^3/uL (3.29-11.43) 12/06/24 15:30 RBC 3.96 10^6/uL (3.85-5.65) 12/06/24 15:30 Hgb 11.90 g/dL (11.27-16.99) 12/06/24 15:30 Hct 35.9 % (36-47) L 12/06/24 15:30 MCV 90.7 fl (85-98) 12/06/24 15:30 MCH 30.1 pg (27-33) 12/06/24 15:30 MCHC 33.1 g/dL (30-55) 12/06/24 15:30 RDW 13.2 % (12.1-15.1) 12/06/24 15:30 Plt Count 425 10^3/cmm (157-399) H 12/06/24 15:30 MPV 8.5 fL (7.4-10.4) 12/06/24 15:30 Neut % (Auto) 60.9 % 12/06/24 15:30 Lymph % (Auto) 29.5 % 12/06/24 15:30 [place] % (Auto) 5.6 % 12/06/24 15:30 Eos % (Auto) 2.8 % 12/06/24 15:30 Baso % (Auto) 0.9 % 12/06/24 15:30 Neut # (Auto) 6.42 10^3/uL (1.8-7.7) 12/06/24 15:30 Lymph # (Auto) 3.1 10^3/uL (0.8-4.8) 12/06/24 15:30 [place] # (Auto) 0.6 10^3/uL (0.2-0.9) 12/06/24 15:30 Eos # (Auto) 0.3 10^3/uL (0.0-0.8) 12/06/24 15:30 Baso # (Auto) 0.1 10^3/uL (0.0-0.1) 12/06/24 15:30 Nucleated RBC % (auto) 0 % 12/06/24 15:30 Nucleated RBCs # 0.0 /100WBC 12/06/24 15:30 Sodium 137 mmol/L (136-145) 12/06/24 15:30 Potassium 4.3 mmol/L (3.5-5.1) 12/06/24 15:30 Chloride 98 mmol/L (98-107) 12/06/24 15:30 Carbon Dioxide 23 mmol/L (22-29) 12/06/24 15:30 Anion Gap 20.3 (5-19) H 12/06/24 15:30 BUN 26 mg/dL (8-23) H 12/06/24 15:30 Creatinine 1.2 mg/dL (0.5-0.9) H 12/06/24 15:30 GFR Calculation 45.4 mL/min (90-130) L 12/06/24 15:30 Glucose 87 mg/dL (65-115) 12/06/24 15:30 Calculated Osmolality 288 mOsm/kg (285-295) 12/06/24 15:30 Calcium 10.5 mg/dL (8.5-10.5) 12/06/24 15:30 Total Bilirubin 0.2 mg/dL (0.15-1.2) 12/06/24 15:30 AST 15 U/L (0-32) 12/06/24 15:30 ALT 13 U/L (0-33) 12/06/24 15:30 Alkaline Phosphatase 73 U/L (35-105) 12/06/24 15:30 Troponin T Baseline 8 ng/L (0-10) 12/06/24 15:30 Troponin T 120 Minute 9.59 ng/L (0-10) 12/06/24 17:04 Delta Troponin T 1.59 ABS# (0-10) 12/06/24 17:04 Total Protein 6.3 g/dL (6.6-8.7) L 12/06/24 15:30 Albumin 4.3 g/dL (3.5-5.2) 12/06/24 15:30 Globulin 2.0 g/dL (1.3-4.6) 12/06/24 15:30 Urine Color Yellow (Yellow) 12/06/24 15:47 Urine Appearance Cloudy (CLEAR) A 12/06/24 15:47 Urine pH 6.0 (5-7) 12/06/24 15:47 Ur Specific [place] 1.008 (1.005-1.030) 12/06/24 15:47 Urine Protein Negative (Negative) 12/06/24 15:47 Urine Glucose (UA) Negative (Normal) 12/06/24 15:47 Urine Ketones Negative (Negative) 12/06/24 15:47 Urine Blood Negative (Negative) 12/06/24 15:47 Urine Nitrate Negative (Negative) 12/06/24 15:47 Urine Bilirubin Negative (Negative) 12/06/24 15:47 Urine Urobilinogen 0.2 mg/dL (Negative) 12/06/24 15:47 Ur Leukocyte Esterase Trace (Negative) A 12/06/24 15:47 Urine RBC 0-2 /hpf (0-2) 12/06/24 15:47 Urine WBC 6-10 /hpf (0-5) 12/06/24 15:47 Ur Squamous Epith Cells 21-50 /hpf (0-5) H 12/06/24 15:47 Amorphous Sediment Not Reportable 12/06/24 15:47 Urine Bacteria 4+ /hpf (NONE) H 12/06/24 15:47 Hyaline Casts 0-4 /lpf H 12/06/24 15:47 All radiology interpretation(s) finalized by discharge Discharge Plan Discharge Patient Disposition: Home Clinical Impression: Atypical chest pain, CKD stage 2 due to type 2 diabetes mellitus, Pulmonary hypertension Hypertension Qualifiers: Hypertension type: primary hypertension Qualified Code(s): I10 - Essential (primary) hypertension Type 2 diabetes mellitus Qualifiers: Diabetes mellitus retirement insulin use: without retirement use Diabetes mellitus complication status: with neurologic complications Diabetes mellitus complication detail: with other neurological complication Qualified Code(s): E11.49 - Type 2 diabetes mellitus with other diabetic neurological complication Condition: Stable Prescriptions: New pantoprazole [Protonix] 40 mg tablet,delayed release (DR/EC) 40 mg PO BID 30 Days Qty: 60 0RF hydrocodone-acetaminophen 5-325 mg tablet 1 tab PO Q6H PRN (Reason: pain) Qty: 10 0RF Continued isosorbide mononitrate 30 mg tablet extended release 24 hr 15 mg PO BID Qty: 90 3RF Changed isosorbide mononitrate 30 mg tablet extended release 24 hr 30 mg PO BID Qty: 90 3RF No Action nitroglycerin [Nitrostat] 0.4 mg tablet, sublingual 0.4 mg sublingual Q5M PRN (Reason: chest pain) Qty: 25 3RF Rx Instructions: do not exceed 3 doses per episode (DME) OneTouch Verio test strips Strip See Rx Instructions .Route Qty: 100 3RF Rx Instructions: Check BS twice a day. insulin glargine U-300 conc 300 unit/mL (3 mL) insulin pen 30 unit SUBCUT DAILY PRN (Reason: Insulin for diabetes) Qty: 6 3RF Rx Instructions: Sliding scale for her daily doses (DME) lancets 23 gauge misc See Rx Instructions .Route Qty: 100 3RF Rx Instructions: As directed (DME) blood sugar diagnostic Strip See Rx Instructions .Route Qty: 100 3RF Rx Instructions: As directed (DME) blood-glucose meter Misc See Rx Instructions .Route Qty: 1 0RF Rx Instructions: As directed carvedilol 12.5 mg tablet See Rx Instructions .ROUTE .COMPLEX Qty: 270 3RF Dose Instruction: TAKE 1 & 1/2 (ONE & ONE-HALF) TABLETS BY MOUTH TWICE DAILY WITH FOOD OR MEAL Rx Instructions: TAKE 1 & 1/2 (ONE & ONE-HALF) TABLETS BY MOUTH TWICE DAILY WITH FOOD OR MEAL ondansetron 8 mg tablet,disintegrating 8 mg PO Q12H PRN (Reason: nausea and vomiting) Qty: 60 1RF Eliquis 5 mg tablet 5 mg PO BID Qty: 180 1RF amitriptyline 50 mg tablet 50 mg PO BEDTIME Qty: 90 1RF tizanidine 4 mg tablet 4 mg PO Q8H PRN (Reason: muscle spasticity) Qty: 90 1RF tramadol 50 mg tablet 100 mg PO Q8H PRN (Reason: pain, severe) Qty: 180 1RF Rx Instructions: refill on or after 30-day intervals valsartan-hydrochlorothiazide 320-25 mg tablet 0.5 tab PO BID Qty: 45 3RF methocarbamol 750 mg tablet 750 mg PO Q8H PRN (Reason: back pain) Qty: 30 0RF multivitamin Tablet 1 tab PO DAILY folic acid 1 mg Tablet 1 mg PO DAILY cholecalciferol (vitamin D3) [Vitamin D3] 25 mcg (1,000 unit) Capsule 25 mcg PO DAILY metformin 1,000 mg tablet 1,000 mg PO BID montelukast 10 mg tablet 10 mg PO DAILY lovastatin 20 mg tablet 20 mg PO DAILY zolpidem 10 mg tablet 10 - 20 mg PO BEDTIME PRN (Reason: insomnia) albuterol sulfate 90 mcg/actuation HFA aerosol inhaler 2 puff inhalation Q6H PRN (Reason: Shortness Of Breath Or Wheezing) topiramate [Topamax] 100 mg tablet 100 mg PO BEDTIME Discharge Orders: Discharge ED (Routine); Ordered 12/06/24 Ordered By: Augusto Francisco Referrals: Ciaran Nelson MD [Primary Care Provider] - Discharge Diet: Usual diet Discharge Activity: Resume usual activity Patient Instructions: Opioid Safety, Pain Management Activity Restrictions/Additional Instructions: Thank you for choosing [facility] for your healthcare needs today. It is very important that you follow up as instructed or that you return to the Emergency Department should you have concerns or if your condition changes or worsens in any way. You are seen in the emergency room for chest discomfort EKGs and cardiac enzymes were negative. There is no sign of doubt widening of her mediastinum there is no pneumothorax no pneumonia. Suspect some of the discomfort is due either to esophageal spasm or GI source. I did discuss your case with a paper bag inspector he agreed that no further cardiac workup at this time would be necessary. Will recommend that you increase your isosorbide mononitrate to 30 mg twice a day additionally started on Protonix 40 mg twice a day. Follow-up with Dr. Alrfed as soon as you are able you may need further evaluation including possible EGD to look at other sources of potential causes for your chest pain. If symptoms worsen significantly return to the emergency room. Print Language: Urdu Coding Level of Care Code ED Patient Intake Representative for Chg Fwd
[2024-12-06] MEDS: ondansetron 2 mg/ML SDV 2 mL 4 MG IVP ×2 (15:34→17:13)
[2024-12-06] MEDS: aspirin 81 mg Chew Tablet 324 MG PO (15:34)
[2024-12-06 15:52] LABS: Basophils # 0.1 10^3/uL (0.0-0.1); Basophils % 0.9 %; Eosinophils # 0.3 10^3/uL (0.0-0.8); Eosinophils % 2.8 %; Hematocrit 35.9 % (36-47); Lymphocytes # 3.1 10^3/uL (0.8-4.8); Lymphocytes % 29.5 %; Mean Corpuscular HGB Conc 33.1 g/dL (30-55); Mean Corpuscular Hemoglobin 30.1 pg (27-33); Mean Corpuscular Volume 90.7 fl (85-98); Mean Platelet Volume 8.5 fL (7.4-10.4); Monocytes # 0.6 10^3/uL (0.2-0.9); Monocytes % 5.6 %; Neutrophils # 6.42 10^3/uL (1.8-7.7); Neutrophils % 60.9 %; Nucleated Red Blood Cells % 0 %; Platelet Count 425 10^3/cmm (157-399); Red Blood Count 3.96 10^6/uL (3.85-5.65); Red Cell Distribution Width 13.2 % (12.1-15.1); White Blood Count 10.56 10^3/uL (3.29-11.43)
[2024-12-06 16:08] LABS: Troponin(5th) Baseline 8 ng/L (0-10)
[2024-12-06 16:10] LABS: Alanine Aminotransferase 13 U/L (0-33); Albumin Level 4.3 g/dL (3.5-5.2); Alkaline Phosphatase 73 U/L (35-105); Aspartate Amino Transferase 15 U/L (0-32); Blood Urea Nitrogen 26 mg/dL (8-23); Calcium 10.5 mg/dL (8.5-10.5); Carbon Dioxide 23 mmol/L (22-29); Chloride 98 mmol/L (98-107); Creatinine Clr Calc Pharmacy 70.0015; Glomerular Filtration Rate 45.4 mL/min (90-130); Glucose 87 mg/dL (65-115); Osmolality Calculated 288 mOsm/kg (285-295); Sodium 137 mmol/L (136-145); Total Bilirubin 0.2 mg/dL (0.15-1.2); Total Protein 6.3 g/dL (6.6-8.7)
[2024-12-06 16:16] LABS: Anion Gap 20.3 (5-19); Potassium 4.3 mmol/L (3.5-5.1)
[2024-12-06 16:36] VITALS: BP 116/58; PULSE 72; O2SAT 100
[2024-12-06 16:41] LABS: Bilirubin Urine Negative (Negative); Blood Urine Negative (Negative); Glucose Urine UA Negative (Normal); Ketones Urine Negative (Negative); Leukocyte Esterase Urine Trace (Negative); Nitrate Urine Negative (Negative); Protein Urine Negative (Negative); Specific Gravity, Urine 1.008 (1.005-1.030); Urine Appearance Cloudy (CLEAR); Urine Color Yellow (Yellow); Urobilinogen Urine 0.2 mg/dL (Negative)
[2024-12-06 16:45] LABS: Add Urine Microscopic? YES; Bacteria Urine 4+ /hpf; Hyaline Casts Urine 0-4 /lpf; RBC Urine 0-2 /hpf (0-2); Squamous Epithelial Cell Urine 21-50 /hpf (0-5)
--- NOTE | 2024-12-06 16:49 | ECG_ITS ---
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 Measurements Intervals [place] Rate: 71 P: 18 [place]: 201 QRS: 82 QRSD: 96 T: 43 QT: 372 QTc: 406 Interpretive Statements SINUS RHYTHM LOW QRS VOLTAGE IN PRECORDIAL LEADS [QRS DEFLECTION < 1.0 mV IN CHEST LEADS] Compared to ECG 12/06/2024 15:08:42 First degree AV block no longer present Electronically Signed On 12-06-2024 21:04:43 CDT by Henna Gray M.D. [email or web address] [id number]
[2024-12-06 16:53] LABS: Add Urine Culture? No
[2024-12-06] MEDS: lidocaine 2% viscous 15 ML, aluminum-mag hydrox-simethicon 30 ML, sucralfate oral liq 1 GM PO (17:06)
[2024-12-06 17:13] VITALS: RESP 20; O2SAT 100
[2024-12-06] MEDS: morphine 4 mg/mL SDV 1 mL IVP (17:13)
[2024-12-06 17:14] VITALS: BP 129/56; PULSE 81; RESP 15; O2SAT 97
[2024-12-06 17:31] LABS: Troponin 5 2HR 9.59 ng/L (0-10); Troponin 5 2HR Delta 1.59 ABS# (0-10)
--- NOTE | 2024-12-06 17:36 | ECG_ITS ---
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 Measurements Intervals [place] Rate: 72 P: 34 [place]: 212 QRS: 79 QRSD: 106 T: 35 QT: 386 QTc: 424 Interpretive Statements SINUS RHYTHM WITH FIRST DEGREE AV BLOCK LOW QRS VOLTAGE IN PRECORDIAL LEADS [QRS DEFLECTION < 1.0 mV IN CHEST LEADS] Compared to ECG 12/06/2024 16:49:43 First degree AV block now present Electronically Signed On 12-06-2024 21:04:37 CDT by Henna Gray M.D. [id number] [id number]
[2024-12-06 18:37] VITALS: PULSE 69; RESP 19; O2SAT 93
[2024-12-06 19:28] VITALS: BP 119/64; PULSE 61; O2SAT 98
== END 2024-12-06 19:31 | disposition home or self-care (01) ==
PROVIDERS: Emergency Provider Family Medicine; PCP Family Medicine
DX: R07.89 Other chest pain (principal); E11.22 Type 2 diabetes mellitus with diabetic chronic kidney disease; I12.9 Hypertensive chronic kidney disease with stage 1 through stage 4 chronic kidney disease, or unspecified chronic kidney disease; E11.40 Type 2 diabetes mellitus with diabetic neuropathy, unspecified; N18.2 Chronic kidney disease, stage 2 (mild); E78.5 Hyperlipidemia, unspecified; Z79.4 Long term (current) use of insulin; Z79.01 Long term (current) use of anticoagulants; Z79.84 Long term (current) use of oral hypoglycemic drugs
CPT/HCPCS: 36415; 71045; 80053; 81001; 84484; 85025; 93005; 96374; 96375; 96376; 99285; J2270; J2405; J9999

== ENCOUNTER → 2025-01-11 13:23 | Outpatient (BNVA) | payer MEDICARE, SELFPAY | PROVIDERS: PCP Family Medicine; Visit Provider Emergency Medicine | DX: R30.0 Dysuria (principal); R10.9 Unspecified abdominal pain | CPT/HCPCS: 81000 ==

== ENCOUNTER → 2025-01-20 14:44 | Outpatient (BNVA) | payer MEDICARE, SELFPAY | PROVIDERS: PCP Family Medicine; Visit Provider Specialist | DX: G43.711 Chronic migraine without aura, intractable, with status migrainosus (principal); G89.29 Other chronic pain; F41.9 Anxiety disorder, unspecified; I27.20 Pulmonary hypertension, unspecified; G43.909 Migraine, unspecified, not intractable, without status migrainosus; I35.0 Nonrheumatic aortic (valve) stenosis | CPT/HCPCS: 99214 ==

== ENCOUNTER → 2025-02-08 15:36 | Outpatient (BNVA) | payer MEDICARE, SELFPAY | PROVIDERS: PCP Family Medicine; Visit Provider Emergency Medicine | DX: M70.972 Unspecified soft tissue disorder related to use, overuse and pressure, left ankle and foot (principal) | CPT/HCPCS: 73610 ==

== ENCOUNTER → 2025-03-24 10:44 | Outpatient (BNVA) | payer MEDICARE, SELFPAY | PROVIDERS: PCP Family Medicine; Visit Provider Podiatrist Foot & Ankle Surgery | DX: M25.572 Pain in left ankle and joints of left foot (principal); S96.812A Strain of other specified muscles and tendons at ankle and foot level, left foot, initial encounter; Q68.8 Other specified congenital musculoskeletal deformities; M19.072 Primary osteoarthritis, left ankle and foot; M76.62 Achilles tendinitis, left leg; X58.XXXA Exposure to other specified factors, initial encounter; Z46.89 Encounter for fitting and adjustment of other specified devices; S96.912D Strain of unspecified muscle and tendon at ankle and foot level, left foot, subsequent encounter; X58.XXXD Exposure to other specified factors, subsequent encounter | CPT/HCPCS: 73610; 99204; L1902 ==

== ENCOUNTER 2025-03-24 11:49 | Outpatient (CLI) | payer MEDICARE, SELFPAY | END 2025-03-24 11:50 | disposition home or self-care (01) | LOC: SPT 11:50 | PROVIDERS: PCP Family Medicine; Visit Provider Podiatrist Foot & Ankle Surgery | DX: Z46.89 Encounter for fitting and adjustment of other specified devices (principal); S96.912D Strain of unspecified muscle and tendon at ankle and foot level, left foot, subsequent encounter; X58.XXXD Exposure to other specified factors, subsequent encounter | CPT/HCPCS: L1902 ==

== ENCOUNTER 2025-04-05 13:47 | Outpatient (CLI) | payer MEDICARE, SELFPAY ==
--- NOTE | 2025-04-05 13:45 | MRR_ITS ---
PROCEDURE INFORMATION: Exam: MR Left Lower Extremity Other Than Joint Without Contrast; Foot Exam date and time: 04/05/2025 2:25 PM Age: 64 years old Clinical indication: Pain; Foot; Left; Additional info: Left ankle tendon tear TECHNIQUE: Imaging protocol: Magnetic resonance imaging of the left lower extremity without contrast. Exam focused on the foot. COMPARISON: CR XR foot LT min 3V* [id number] 08/04/2020 11:14 AM FINDINGS: Bones/joints: Increased degenerative T2 signal in the inferior talus and superior calcaneus, along the subtalar joint. 0.7 cm oval focus of increased degenerative T2 signal in the medial aspect distal fibula along the talofibular joint. The bones are intact. No fracture. LIGAMENTS: Anterior talofibular ligament: The anterior talofibular ligament is poorly visualized. Posterior talofibular ligament: Thin fibers of the posterior talofibular ligament are visualized. Calcaneofibular ligament: The calcaneofibular ligament is poorly visualized. Lisfranc ligament: Unremarkable. No evidence of tear. TENDONS: Flexor tendons of foot: Unremarkable. No evidence of tear. Tibialis posterior tendon: Unremarkable as visualized. Peroneal tendons: Unremarkable as visualized. Extensor tendons of foot: Unremarkable. No evidence of tear. Tibialis anterior tendon: Unremarkable as visualized. Tarsal canal (Sinus tarsi): Unremarkable. Tarsal tunnel: Unremarkable. Soft tissues: Mild subcutaneous soft tissue edema in the lateral ankle. Plantar fascia: Unremarkable as visualized. MR/MR foot LT wo con* [id number] IMPRESSION: 1. No fracture identified. 2. No tendon tear visualized. 3. Poor visualization the anterior talofibular and calcaneofibular ligaments. Ligament injury can not be excluded. 4. Mild subcutaneous soft tissue edema in the lateral ankle.
== END 2025-04-05 13:48 | disposition home or self-care (01) ==
LOC: RAD 13:50
PROVIDERS: PCP Family Medicine; Visit Provider Podiatrist Foot & Ankle Surgery
DX: S96.912A Strain of unspecified muscle and tendon at ankle and foot level, left foot, initial encounter (principal); X58.XXXA Exposure to other specified factors, initial encounter
CPT/HCPCS: 73718

== ENCOUNTER → 2025-04-06 09:55 | Outpatient (BNVA) | payer MEDICARE, SELFPAY | PROVIDERS: PCP Family Medicine; Visit Provider Podiatrist Foot & Ankle Surgery | DX: S96.812A Strain of other specified muscles and tendons at ankle and foot level, left foot, initial encounter (principal); Q68.8 Other specified congenital musculoskeletal deformities; M76.62 Achilles tendinitis, left leg; X58.XXXA Exposure to other specified factors, initial encounter; M19.072 Primary osteoarthritis, left ankle and foot | CPT/HCPCS: 99214 ==

== ENCOUNTER → 2025-04-27 11:44 | Outpatient (BNVA) | payer MEDICARE, SELFPAY | PROVIDERS: PCP Family Medicine; Visit Provider Family Medicine | DX: I10 Essential (primary) hypertension (principal); E78.2 Mixed hyperlipidemia; E11.49 Type 2 diabetes mellitus with other diabetic neurological complication; N18.2 Chronic kidney disease, stage 2 (mild); E11.22 Type 2 diabetes mellitus with diabetic chronic kidney disease | CPT/HCPCS: 80053; 80061; 83036; 84439; 84443; 85025 ==

== ENCOUNTER 2025-05-02 11:22 | Outpatient (CLI) | payer MEDICARE, SELFPAY ==
--- NOTE | 2025-05-02 11:31 | XRR_ITS ---
PROCEDURE INFORMATION: Exam: XR Left Foot Exam date and time: 05/02/2025 11:41 AM Age: 64 years old Clinical indication: Injury or trauma; Other: Dog stepped on foot; Blunt trauma; Left; Injury details: --pain in lt foot for 2 months, injured 2 months ago dog stepped on it; Additional info: Left foot trauma TECHNIQUE: Imaging protocol: Radiologic exam of the left foot. Views: 3 or more views. COMPARISON: 1. MR foot LT wo con* [id number] 04/05/2025 2:25 PM 2. CR XR ankle LT min 3V* [id number] 03/24/2025 10:53 AM FINDINGS: Bones/joints: The bones are demineralized. Lucency overlying 4th proximal phalanx distally appears to represent overlying soft tissues. No acute fracture or dislocation. Soft tissues: Normal. XR/XR foot LT min 3V* [id number] IMPRESSION: No acute findings.
== END 2025-05-02 11:23 | disposition home or self-care (01) ==
LOC: RAD 11:24
PROVIDERS: PCP Family Medicine
DX: M79.672 Pain in left foot (principal); R50.9 Fever, unspecified; M85.872 Other specified disorders of bone density and structure, left ankle and foot; R93.6 Abnormal findings on diagnostic imaging of limbs
CPT/HCPCS: 73630; 87426

== ENCOUNTER 2025-05-05 13:22 | Inpatient (IN) | payer MEDICARE, SELFPAY ==
[2025-05-05] VITALS (8 sets, daily range): BP systolic 105–122; BP diastolic 62–70; PULSE 63–71; RESP 14–26; TEMP 37.7; O2SAT 92–97; BMI 45.6; BMI 45.7
--- NOTE | 2025-05-05 13:25 | ECG_ITS ---
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 Measurements Intervals [place] Rate: 70 P: 34 [place]: 185 QRS: 99 QRSD: 100 T: 71 QT: 377 QTc: 407 Interpretive Statements SINUS RHYTHM BORDERLINE RIGHT AXIS DEVIATION [QRS AXIS > 90] LOW QRS VOLTAGE IN PRECORDIAL LEADS [QRS DEFLECTION < 1.0 mV IN CHEST LEADS] Compared to ECG 12/06/2024 17:36:48 First degree AV block no longer present Electronically Signed On 05-07-2025 08:45:12 CDT by Cristian Love M.D. [id number]
--- OUTSIDE RECORDS SUMMARY | 2025-05-05 13:32 | XMS_ITS | Patient Health Record ---
Author Organization [facility] Address [address] [place] [address] Care Team Providers Care Research Analyst Name Role Phone Steve Reagan DO Primary Care Provider MEENAKSHI Zacarias Unavailable [phone] Anita Mann, Rigo Unavailable Unavailable Allergies Allergen (clinical drug ingredient) Drug/Non Drug Allergy documented on EMR Reaction Allergy Type Onset Date Status erythromycin Erythromycin Unknown Drug Allergy A ctive promethazine Phenergan Unknown Drug Allergy Acti ve Reason For Referral No Information Medications Medication SIG (Take, Route, Fr equency, Duration) Notes Start Date End Date Status Losartan Potassium A ctive Amitriptyline HCl Ac tive Meloxicam Active Gabapentin Active Methocarbamol Active metFORMIN HCl Active ProAir HFA Active Lovastatin Active Lantus Active Advair Diskus Active Budesonide Active Zolpidem Tartrate Ac tive Ondansetron Active Multivitamin Active Montelukast Sodium A ctive Social History Tobacco Use: Social History Observation Description Date Details (start date - stop date) Never Smoker NA - NA Sex Assigned At : Social History Observation Description Sex Assigned At Female Tobacco Use/Smoking Question Answer Notes Are you a nonsmoker Problems Problem Type SNOMED Code ICD Code Onset Dates Problem Status W/U Status Risk Notes Problem Cervical spondylosis (923363568) Cervical Spondylosis (M47.812) Active confirmed Problem Cervical radiculopathy (12022987) Cervical Radiculopathy (M54.12) Active confirmed Plan Of Treatment Pending Test Test Name Order Date cervical epidural steroid injection 05/2019 cervical epidural steroid injection 01/14 Cervical facet joint block 04/19/2019 Insurance Providers Payer Name Payer Address Payer Phone Subscriber Number Group Number Insured Name Patient Relationship to Insured Coverage Start Date Coverage End Date W/C [employer] [address] [place] [address] [id number] ISATU ABEL Self - patient is the insured 9 Medical (General) History Medical History History ICD Code Asthma Diabetes HTN High cholesterol Surgical History Surgery Date(Month/Year) Right knee surgery
--- OUTSIDE RECORDS SUMMARY | 2025-05-05 13:32 | XMS_ITS | Clinical Summary ---
Author Organization [facility] Address [address] Goss: [facility] [place] [address] Care Team Providers Care Stable Attendant Name Role Phone Steve Reagan DO Primary Care Provider [phone]- [phone] Family History Medical History Relation Name Comments Cancer Brother 1 Diabetes Brother 1 High Cholesterol Brother 1 Hypertension Brother 1 Liver Disease Brother 1 Melanoma Brother 1 Stroke Brother 1 Depression Brother 2 Diabetes Brother 2 Heart Disease Brother 2 High Cholesterol Brother 2 Hypertension Brother 2 Liver Disease Brother 2 Respiratory Disease Brother 2 Stroke Brother 2 Healthy Brother 3 Healthy Father Ovarian Cancer Maternal Grandmother Breast Cancer Mother Diabetes Mother Heart Disease Mother Anemia Sister 1 Cancer Sister 1 Diabetes Sister 1 Heart Disease Sister 1 High Cholesterol Sister 1 Hypertension Sister 1 Osteoporosis Sister 1 Stroke Sister 1 COPD Sister 2 Diabetes Sister 2 Heart Disease Sister 2 Hypertension Sister 2 Stroke Sister 2 Uterine Cancer Sister 2 No Known Problems Sister 3 Anemia Sister 4 Breast Cancer Sister 4 Cancer Sister 4 Hypertension Sister 4 Liver Disease Sister 4 Osteoporosis Sister 4 Uterine Cancer Sister 4 Breast Cancer Sister 5 Cancer Sister 5 Diabetes Sister 5 High Cholesterol Sister 5 Thyroid Disease Sister 5 COPD Sister 6 Cancer Sister 6 Diabetes Sister 6 HIV Sister 6 Hypertension Sister 6 Liver Disease Sister 6 Ovarian Cancer Sister 6 Respiratory Disease Sister 6 Unknown Sister 6 Uterine Cancer Sister 6 Ovarian Cancer Sister 7 Ovarian Cancer Sister 8 Ovarian Cancer Sister 9 Relation Name Status Comments Brother 1 Brother 2 Alive Brother 3 Father Maternal Grandmother Mother Sister 1 Sister 2 Sister 3 Sister 4 Alive Sister 5 Alive Sister 6 Alive Sister 7 Alive Sister 8 Alive Sister 9 Alive Social History Tobacco Use Types Packs/Day Years Used Date Smoking Tobacco: Never Alcohol Use Standard Drinks/Week Comments No 0 (1 standard drink = 0.6 oz pur e alcohol) Comments Unknown Sex and Gender Information Value Date Recorded Sex Assigned at Not on file Legal Sex Female 11:40 AM [employer] Gender Identity Not on file Sexual Orientation Not on file Last Filed Vital Signs Vital Sign Reading Time Taken Comments Blood Pressure 150/82 03/30/2019 3:01 PM CDT Pulse 78 03/30/2019 3:01 PM CDT Temperature 36.2 C (97.2 F) 03/30/2019 3:01 PM CDT Respiratory Rate - - Oxygen Saturation - - Inhaled Oxygen Concentration - - Weight 143.3 kg (316 lb) 03/30/2019 3:01 PM CDT Height 172.7 cm (5' 8 ) 03/30/2019 3:01 PM CDT Body Mass Index 48.05 03/30/2019 3:01 PM CDT Plan of Treatment Health Maintenance Due Date Last Done Comments DIABETES ANNUAL RETINAL EXAM 1979 DIABETES MICROALBUMIN ANNUAL SCREEN 1979 LDL CHOLESTEROL ANNUAL 1979 HPV/Cotest (21-29) 1982 CERVICAL CANCER SCREENING 1991 HPV/Cotest (30-65) 1991 PAP SMEAR 1991 FIT-DNA Q 3 years 2006 FIT/FOBT Q 1 year 2006 Flex Sig/CT Colonography Q 5 years 2006 ZOSTER VACCINE (1 of 2) 2011 BREAST CANCER SCREENING 04/23/2018 04/23/2017 DIABETES HBA1C Q 6 MONTHS 06/13/2021 12/11/2020 RSV VACCINE (60+ or ) (1 - Risk 60-74 years 1-dose series) 2021 DIABETES ANNUAL FOOT EXAM 12/07/2021 12/07/2020 INFLUENZA VACCINE (#1) 2025 , 08/26/2019, 07/04/2016 COLORECTAL SCREENING 05/30/2027 05/30/2017 Colorectal Cancer Screening 05/30/2027 DTAP/TDAP/TD VACCINES (2 - Tdap) 02/15/2029 02/16/20 19 Care Teams Stable Attendant Relationship Specialty Start Date End Date Steve Reagan DO [address] [place] [id number] PCP - General Family Practice 03/30/19
--- NOTE | 2025-05-05 14:23 | XRR_ITS ---
PROCEDURE INFORMATION: Exam: XR Chest Exam date and time: 05/05/2025 2:39 PM Age: 64 years old Clinical indication: Cough and dyspnea; Additional info: Dyspnea/cough TECHNIQUE: Imaging protocol: Radiologic exam of the chest. Views: 1 view. COMPARISON: CR XR chest 1V portable [id number] 12/06/2024 3:16 PM FINDINGS: Lungs: No consolidation. Pleural spaces: There is no pleural effusion or pneumothorax. Heart/Mediastinum: The cardiac silhouette is enlarged, similar to 12/06/2024. Upper mediastinal contours are unremarkable. Bones/joints: Bones are unremarkable. XR/XR chest 1V portable [id number] IMPRESSION: 1. Lungs are clear. 2. Stable cardiac enlargement.
--- NOTE | 2025-05-05 14:23 | ECG_ITS ---
[facility]05 Pat Name: Arelis Nathan Department: Room: 279 Gender: Female [employer]: : 1960 Requested By: Augusto Arredondo Order Number: [id number] Andrei MD: Cristian Love M.D. Measurements Intervals [place] Rate: 68 P: 51 NV: 184 QRS: 90 QRSD: 112 T: 72 QT: 395 QTc: 421 Interpretive Statements SINUS RHYTHM LOW QRS VOLTAGE IN PRECORDIAL LEADS [QRS DEFLECTION < 1.0 mV IN CHEST LEADS] MODERATE INTRAVENTRICULAR CONDUCTION DELAY [110+ ms QRS DURATION] Compared to ECG 05/05/2025 13:28:20 Intraventricular conduction delay now present Electronically Signed On 05-07-2025 08:44:51 CDT by Cristian Love M.D. [email or web address]
--- NOTE | 2025-05-05 14:24 | W.ED.CHESTPA ---
Documented by User: Augusto Francisco DO 05/09/25 12:15 HPI - Chest Pain General: Chief Complaint: Chest Pain Stated Complaint: CP SOB low grade fever headache Nausa Time Seen by Provider: 05/05/25 14:07 History of Present Illness: 64-year-old female presents emergency room complaining of chest pain shortness of breath low-grade fever headache and nausea for the last several days. Has had chest pain intermittently for 6 days. Patient also reports that she has had some abdominal pain she had some diarrhea for a time but then it resolved. She denies any dysuria urgency or frequency. Associated symptoms: Reports abdominal pain, dyspnea, nausea and vomiting; Deny fever(s) Related Data Home Medications ?Medication ?Instructions ?Recorded ?Confirmed cholecalciferol (vitamin D3) 25 25 mcg PO DAILY 10/03/21 05/05/25 mcg (1,000 unit) capsule (Vitamin D3) folic acid 1 mg tablet 1 mg PO DAILY 10/03/21 05/05/25 multivitamin 1 tab PO DAILY 10/03/21 05/05/25 Previous Rx's ?Medication ?Instructions ?Recorded blood sugar diagnostic #100 ea 05/13/24 blood-glucose meter #1 ea 05/13/24 lancets 23 gauge #100 ea 05/13/24 blood sugar diagnostic (OneTouch #100 ea 08/11/24 Verio test strips) nitroglycerin 0.4 mg sublingual 0.4 mg sublingual Q5M PRN chest 08/11/24 tablet (Nitrostat) pain #25 tabs tizanidine 4 mg tablet 4 mg PO Q8H PRN muscle spasticity 10/11/24 #90 tabs valsartan 320 0.5 tab PO BID #45 tabs 11/17/24 mg-hydrochlorothiazide 25 mg tablet isosorbide mononitrate 30 mg 30 mg PO BID #90 tabs 12/06/24 tablet,extended release 24 hr methocarbamol 750 mg tablet 750 mg PO Q8H PRN back pain #60 12/16/24 tabs galcanezumab-gnlm 120 mg/mL 120 mg SUBCUT Q30D #1 mL 01/20/25 subcutaneous pen injector (Emgality Pen) metoclopramide HCl 10 mg tablet 10 mg PO BID #120 tabs 01/20/25 (Reglan) lovastatin 20 mg tablet 20 mg PO DAILY #90 tabs 01/28/25 cam walker #1 ea 02/08/25 crutch #2 ea 02/08/25 apixaban 5 mg tablet (Eliquis) 5 mg PO BID #180 tabs 03/03/25 ASO left ankle brace #1 ea 03/24/25 tramadol 50 mg tablet 100 mg (2 x 50 mg) PO Q8H PRN 04/04/25 pain, severe #180 tabs fluticasone 250 mcg-salmeterol 50 1 inh inhalation BID #60 ea 04/07/25 mcg/dose blistr powdr for inhalation (Advair Diskus) montelukast 10 mg tablet 10 mg PO DAILY #90 tabs 04/19/25 carvedilol 12.5 mg tablet See Rx Instructions .Route 04/27/25 .COMPLEX #270 tabs zolpidem 10 mg tablet 10 - 20 mg (1 - 2 x 10 mg) PO 04/27/25 BEDTIME PRN insomnia #60 tabs insulin glargine U-300 conc 300 30 unit (0.1 mL) SUBCUT DAILY PRN 04/28/25 unit/mL (3 mL) subcutaneous pen Insulin for diabetes #6 mL metformin 1,000 mg tablet 1,000 mg PO BID #180 tabs 04/28/25 ondansetron 8 mg disintegrating 8 mg PO Q12H PRN nausea and 05/02/25 tablet vomiting #60 tabs amitriptyline 50 mg tablet See Rx Instructions .Route 05/03/25 .COMPLEX #90 tabs levofloxacin 750 mg tablet 750 mg PO DAILY 7 days #7 tabs 05/08/25 Allergies Allergy/AdvReac Type Severity Reaction Status Date / Time topiramate (From Topamax) Allergy Intermediate ADR-Nausea Verified 05/02/25 09:54 erythromycin base Allergy Unknown Unresponsiv Verified 05/02/25 09:54 e promethazine (From Phenergan) Allergy ADR-Nausea Verified 05/02/25 09:54 Review of Systems Const: Denies: fever(s) or chills Card: Reports: chest pain Resp: Reports: dyspnea GI: Reports: abdominal pain, nausea, vomiting and diarrhea (Resolved) : Denies: dysuria, urinary frequency or urinary urgency Musc: Denies: neck pain or back pain Skin/Breast: Denies: rash [facility] PFSH: Medical History Diabetic radiculopathy Anxiety Chronic pain Persistent headaches Left-sided chest wall pain Right-sided chest wall pain Right sided abdominal pain Chronic nausea Osteoarthritis of left knee Constipation by delayed colonic transit CKD stage 2 due to type 2 diabetes mellitus Diverticulosis large intestine w/o perforation or abscess w/o bleeding COVID-19 Positive test for COVID-19 05/17/2021 Chronic generalized abdominal pain Morbid obesity with body mass index of 45.0-49.9 in adult Primary localized osteoarthritis of knees, bilateral Breast lump on left side at 6 o'clock position Insomnia Osteoarthritis (arthritis due to wear and tear of joints) thoracic and Lumbar spine, knees & multiple joints Hypertension Type 2 diabetes mellitus Hx of pulmonary embolus Asthma History of chronic pain Diabetic neuropathy Hyperlipidemia Surgical History Status post right knee replacement Hx of right knee surgery [address] [facility] Family History Other Cancer Diabetes Hyperlipidemia Hypertension LVH (left ventricular hypertrophy) Stroke Social History Smoking and tobacco/nicotine status: never used tobacco/nicotine Alcohol intake: never Substance/Drug Use: never Caregiver/support person: Yes Lives independently: Yes Household members: spouse Marital status: Number of children: 1 Number of grandchildren: 2 Current occupational status: retired Physical Exam Const: COMMON NORMALS: no acute distress GENERAL APPEARANCE: cooperative and comfortable ORIENTATION/CONSCIOUSNESS: Yes awake, Yes oriented to person, Yes oriented to place and Yes oriented to time HENMT: COMMON NORMALS: normocephalic, atraumatic and hearing grossly normal bilaterally HEAD & SCALP: normocephalic and atraumatic Resp: COMMON NORMALS: normal respiratory effort, No retractions, No use of accessory muscles and clear to auscultation bilaterally AUSCULTATION: clear to auscultation bilaterally Cardio: COMMON NORMALS: regular rate, regular rhythm and No murmurs present (Cardio) RATE: regular rate RHYTHM: regular rhythm GI: COMMON NORMALS: Soft to palpation and No hepatosplenomegaly present AUSCULTATION: Yes normoactive bowel sounds PALPATION: Yes Soft to palpation, No Tenderness to palpation present (GI), No Guarding due to palpation present (GI) and Yes No hepatosplenomegaly present Extremity: COMMON NORMALS: normal to inspection, capillary refill normal, no clubbing, cyanosis or edema, no calf tenderness and no pedal edema Neuro: SENSORIUM/ORIENTATION: Yes oriented to person, Yes oriented to place and Yes oriented to time Skin: COMMON NORMALS: no rashes or lesions noted GENERAL SKIN EXAM: no rashes or lesions noted Course Vital Signs: Vital signs: Vital Signs Temperature 98.5 F 05/08/25 14:52 Pulse Rate 67 05/08/25 14:52 Respiratory Rate 18 05/08/25 14:52 Blood Pressure 127/71 05/08/25 14:52 Pulse Oximetry 96 05/08/25 14:52 Oxygen Delivery Me thod Room Air 05/08/25 13:24 Fraction of Inspir ed Oxygen 21 05/05/25 23:12 MDM - Chest Pain Medical Decision Making Care signed out to Dr. Atkins at change of shift. See final notes for diagnosis and disposition. Patient signed out to me at shift change by Dr. Francisco. Patient reiterates to me that she is here for chest pain and back pain and abdominal pain. Labs show UTI and LINDA for which she received IV fluids and ceftriaxone. EKG is reassuring and troponin is commensurate with LINDA. I do not suspect ACS. CT scan of the abdomen shows nothing acute. She will be admitted to the hospital service for further fluids and antibiotic therapy. Lab Data 05/08/25 01:19 05/08/25 01:19 Radiology Impressions Chest X-Ray 05/05/25 14:23 IMPRESSION: 1. Lungs are clear. 2. Stable cardiac enlargement. Abdomen/Pelvis CT 05/05/25 16:34 IMPRESSION: 1. Subtle infiltration of the sigmoid mesocolon without definitive evidence of diverticulitis. Possible scarring related to remote inflammation. A chronic or recurrent low-grade inflammatory process of the sigmoid colon is not excluded. 2. Incidental findings above. Shoulder X-Ray 05/07/25 10:16 IMPRESSION: Mild arthritic changes Laboratory Results WBC 3.06 10^3/uL (3.29-11.43) L 05/05/25 14:07 RBC 4.15 10^6/uL (3.85-5.65) 05/05/25 14:07 Hgb 12.00 g/dL (11.27-16.99) 05/05/25 14:07 Hct 36.2 % (36-47) 05/05/25 14:07 MCV 87.2 fl (85-98) 05/05/25 14:07 MCH 28.9 pg (27-33) 05/05/25 14:07 MCHC 33.1 g/dL (30-55) 05/05/25 14:07 RDW 14.3 % (12.1-15.1) 05/05/25 14:07 Plt Count 194 10^3/cmm (157-399) 05/05/25 14:07 MPV 9.4 fL (7.4-10.4) 05/05/25 14:07 Neut % (Auto) 53.0 % 05/05/25 14:07 Lymph % (Auto) 41.5 % 05/05/25 14:07 [place] % (Auto) 4.2 % 05/05/25 14:07 Eos % (Auto) 0.3 % 05/05/25 14:07 Baso % (Auto) 0.7 % 05/05/25 14:07 Neut # (Auto) 1.62 10^3/uL (1.8-7.7) L 05/05/25 14:07 Lymph # (Auto) 1.3 10^3/uL (0.8-4.8) 05/05/25 14:07 [place] # (Auto) 0.1 10^3/uL (0.2-0.9) L 05/05/25 14:07 Eos # (Auto) 0.0 10^3/uL (0.0-0.8) 05/05/25 14:07 Baso # (Auto) 0.0 10^3/uL (0.0-0.1) 05/05/25 14:07 Nucleated RBC % (auto) 0 % 05/05/25 14:07 Nucleated RBCs # 0.0 /100WBC 05/05/25 14:07 Specimen Type Arterial 05/05/25 14:55 Sample Site Brachial, left 05/05/25 14:55 ABG pH 7.39 (7.35-7.45) 05/05/25 14:55 ABG pCO2 31.4 mmHg (35-45) L 05/05/25 14:55 ABG pO2 67.9 mmHg (80.0-100.0) L 05/05/25 14:55 ABG PO2/FiO2 Ratio 323 05/05/25 14:55 ABG HCO3 19.0 mmol/L (22-26) L 05/05/25 14:55 ABG O2 Saturation 94.4 05/05/25 14:55 ABG Base Excess -5.0 mmol/L (-2.0-2.0) L 05/05/25 14:55 [place] Test N/a 05/05/25 14:55 A-a O2 Gradient 5.5 mmHg (5-10) 05/05/25 14:55 Hematocrit 37.8 % (37-47) 05/05/25 14:55 Hgb O2 Saturation 93.6 % (95-100) L 05/05/25 14:55 Carboxyhemoglobin 0.7 %THgb (0.4-20.1) 05/05/25 14:55 Methemoglobin 0.1 % (0.4-1.5) L 05/05/25 14:55 Total Hemoglobin 12.3 g/dL (12-16) 05/05/25 14:55 Sodium 130.0 mmol/L (131-143) L 05/05/25 14:55 Potassium 4.2 mmol/L (3.5-5.0) 05/05/25 14:55 Glucose 132.0 mg/dL (70-115) H 05/05/25 14:55 Ionized Calcium 1.1 mmol/L (1.1-1.4) 05/05/25 14:55 O2 Delivery Device Room air 05/05/25 14:55 FiO2 21.0 % 05/05/25 14:55 Theoretical Physics Teacher ID Amh 05/05/25 14:55 Sodium 130 mmol/L (136-145) L 05/05/25 14:07 Potassium 4.4 mmol/L (3.5-5.1) 05/05/25 14:07 Chloride 97 mmol/L (98-107) L 05/05/25 14:07 Carbon Dioxide 19 mmol/L (22-29) L 05/05/25 14:07 Anion Gap 18.4 (5-19) 05/05/25 14:07 BUN 39 mg/dL (8-23) H 05/05/25 14:07 Creatinine 2.2 mg/dL (0.5-0.9) H 05/05/25 14:07 GFR Calculation 22.5 mL/min (90-130) L 05/05/25 14:07 Glucose 160 mg/dL (65-115) H 05/05/25 14:07 POC Glucose 126 mg/dL (70-110) H 05/05/25 17:13 Estimat Average Glucose 140 05/05/25 14:07 Hemoglobin A1c 6.5 % (4.0-6.0) H 05/05/25 14:07 Calculated Osmolality 283 mOsm/kg (285-295) L 05/05/25 14:07 Lactic Acid 2.0 mmol/L (0.5-2.2) 05/05/25 14:07 Calcium 8.0 mg/dL (8.5-10.5) L 05/05/25 14:07 Total Bilirubin 0.2 mg/dL (0.15-1.2) 05/05/25 14:07 AST 102 U/L (0-32) H 05/05/25 14:07 ALT 71 U/L (0-33) H 05/05/25 14:07 Alkaline Phosphatase 68 U/L (35-105) 05/05/25 14:07 Troponin T Baseline 16 ng/L (0-10) H 05/05/25 14:07 Troponin T 120 Minute 17.43 ng/L (0-10) H 05/05/25 16:13 Delta Troponin T 1.43 ABS# (0-10) 05/05/25 16:13 NT-Pro-B Natriuret Pep 96 pg/mL (0-125) 05/05/25 14:07 Total Protein 5.9 g/dL (6.6-8.7) L 05/05/25 14:07 Albumin 3.7 g/dL (3.5-5.2) 05/05/25 14:07 Globulin 2.2 g/dL (1.3-4.6) 05/05/25 14:07 Triglycerides 134 mg/dL (0-150) 05/05/25 14:07 Cholesterol 78 mg/dL (0-200) 05/05/25 14:07 LDL Cholesterol, Calc 16 mg/dL (50-129) L 05/05/25 14:07 HDL Cholesterol 35 mg/dL (60-100) L 05/05/25 14:07 LDL/HDL Ratio 0.46 RATIO (0.00-3.22) 05/05/25 14:07 Cholesterol/HDL Ratio 2.23 mg/dL (0.0-4.40) 05/05/25 14:07 Lipase 50 U/L (13-60) 05/05/25 14:07 Procalcitonin 0.13 ng/mL (0-0.5) 05/05/25 14:07 TSH 2.07 uIU/mL (0.27-4.20) 05/05/25 14:07 Urine Color Yellow (Yellow) 05/05/25 15:50 Urine Appearance Clear (CLEAR) 05/05/25 15:50 Urine pH 5.5 (5-7) 05/05/25 15:50 Ur Specific [place] 1.016 (1.005-1.030) 05/05/25 15:50 Urine Protein 1+ (Negative) A 05/05/25 15:50 Urine Glucose (UA) Negative (Normal) 05/05/25 15:50 Urine Ketones Negative (Negative) 05/05/25 15:50 Urine Blood Negative (Negative) 05/05/25 15:50 Urine Nitrate Positive (Negative) A 05/05/25 15:50 Urine Bilirubin Negative (Negative) 05/05/25 15:50 Urine Urobilinogen 0.2 mg/dL (Negative) 05/05/25 15:50 Ur Leukocyte Esterase 2+ (Negative) A 05/05/25 15:50 Urine RBC 0-2 /hpf (0-2) 05/05/25 15:50 Urine WBC >100 /hpf (0-5) H 05/05/25 15:50 Ur Squamous Epith Cells 0-5 /hpf (0-5) 05/05/25 15:50 Amorphous Sediment Not Reportable 05/05/25 15:50 Urine Bacteria 4+ /hpf (NONE) H 05/05/25 15:50 Hyaline Casts 4.95 /lpf 05/05/25 15:50 EKG Data EKG 1: Interpretation: EKG 05/05/2025 1528 normal sinus rhythm. Rate of 68 VT interval 184 QTc 412[address] No acute ST elevation.. EKG 12/06/2024 no significant change. Discharge Plan Discharge Patient Disposition: Admitted As Inpatient Admit Provider: Ronald Umana Clinical Impression: LINDA (acute kidney injury), Pyelonephritis Condition: Stable Discharge Diet: Advance as tolerated and Usual diet Discharge Activity: Resume usual activity and Increase activity as tolerated Coding Level of Care Code ED Forging Dies Final Finisher for Chg Fwd Documented by User: Silverio Atkins MD 05/05/25 20:35 HPI - Chest Pain General: Chief Complaint: Chest Pain Stated Complaint: CP SOB low grade fever headache Nausa Time Seen by Provider: 05/05/25 14:07 Related Data Home Medications ?Medication ?Instructions ?Recorded ?Confirmed cholecalciferol (vitamin D3) 25 25 mcg PO DAILY 10/03/21 05/05/25 mcg (1,000 unit) capsule (Vitamin D3) folic acid 1 mg tablet 1 mg PO DAILY 10/03/21 05/05/25 multivitamin 1 tab PO DAILY 10/03/21 05/05/25 Previous Rx's ?Medication ?Instructions ?Recorded blood sugar diagnostic #100 ea 05/13/24 blood-glucose meter #1 ea 05/13/24 lancets 23 gauge #100 ea 05/13/24 blood sugar diagnostic (OneTouch #100 ea 08/11/24 Verio test strips) nitroglycerin 0.4 mg sublingual 0.4 mg sublingual Q5M PRN chest 08/11/24 tablet (Nitrostat) pain #25 tabs tizanidine 4 mg tablet 4 mg PO Q8H PRN muscle spasticity 10/11/24 #90 tabs valsartan 320 0.5 tab PO BID #45 tabs 11/17/24 mg-hydrochlorothiazide 25 mg tablet isosorbide mononitrate 30 mg 30 mg PO BID #90 tabs 12/06/24 tablet,extended release 24 hr methocarbamol 750 mg tablet 750 mg PO Q8H PRN back pain #60 12/16/24 tabs galcanezumab-gnlm 120 mg/mL 120 mg SUBCUT Q30D #1 mL 01/20/25 subcutaneous pen injector (Emgality Pen) metoclopramide HCl 10 mg tablet 10 mg PO BID #120 tabs 01/20/25 (Reglan) lovastatin 20 mg tablet 20 mg PO DAILY #90 tabs 01/28/25 cam walker #1 ea 02/08/25 crutch #2 ea 02/08/25 apixaban 5 mg tablet (Eliquis) 5 mg PO BID #180 tabs 03/03/25 ASO left ankle brace #1 ea 03/24/25 tramadol 50 mg tablet 100 mg (2 x 50 mg) PO Q8H PRN 04/04/25 pain, severe #180 tabs fluticasone 250 mcg-salmeterol 50 1 inh inhalation BID #60 ea 04/07/25 mcg/dose blistr powdr for inhalation (Advair Diskus) montelukast 10 mg tablet 10 mg PO DAILY #90 tabs 04/19/25 carvedilol 12.5 mg tablet See Rx Instructions .Route 04/27/25 .COMPLEX #270 tabs zolpidem 10 mg tablet 10 - 20 mg (1 - 2 x 10 mg) PO 04/27/25 BEDTIME PRN insomnia #60 tabs insulin glargine U-300 conc 300 30 unit (0.1 mL) SUBCUT DAILY PRN 04/28/25 unit/mL (3 mL) subcutaneous pen Insulin for diabetes #6 mL metformin 1,000 mg tablet 1,000 mg PO BID #180 tabs 04/28/25 ondansetron 8 mg disintegrating 8 mg PO Q12H PRN nausea and 05/02/25 tablet vomiting #60 tabs amitriptyline 50 mg tablet See Rx Instructions .Route 05/03/25 .COMPLEX #90 tabs levofloxacin 750 mg tablet 750 mg PO DAILY 7 days #7 tabs 05/08/25 Allergies Allergy/AdvReac Type Severity Reaction Status Date / Time topiramate (From Topamax) Allergy Intermediate ADR-Nausea Verified 05/02/25 09:54 erythromycin base Allergy Unknown Unresponsiv Verified 05/02/25 09:54 e promethazine (From Phenergan) Allergy ADR-Nausea Verified 05/02/25 09:54 [facility] ED PFS: Medical History Diabetic radiculopathy Anxiety Chronic pain Persistent headaches Left-sided chest wall pain Right-sided chest wall pain Right sided abdominal pain Chronic nausea Osteoarthritis of left knee Constipation by delayed colonic transit CKD stage 2 due to type 2 diabetes mellitus Diverticulosis large intestine w/o perforation or abscess w/o bleeding COVID-19 Positive test for COVID-19 05/17/2021 Chronic generalized abdominal pain Morbid obesity with body mass index of 45.0-49.9 in adult Primary localized osteoarthritis of knees, bilateral Breast lump on left side at 6 o'clock position Insomnia Osteoarthritis (arthritis due to wear and tear of joints) thoracic and Lumbar spine, knees & multiple joints Hypertension Type 2 diabetes mellitus Hx of pulmonary embolus Asthma History of chronic pain Diabetic neuropathy Hyperlipidemia Surgical History Status post right knee replacement Hx of right knee surgery [address] [facility] Family History Other Cancer Diabetes Hyperlipidemia Hypertension LVH (left ventricular hypertrophy) Stroke Social History Smoking and tobacco/nicotine status: never used tobacco/nicotine Alcohol intake: never Substance/Drug Use: never Caregiver/support person: Yes Lives independently: Yes Household members: spouse Marital status: Number of children: 1 Number of grandchildren: 2 Current occupational status: retired Course Vital Signs: Vital signs: Vital Signs Temperature 98.5 F 05/08/25 14:52 Pulse Rate 67 05/08/25 14:52 Respiratory Rate 18 05/08/25 14:52 Blood Pressure 127/71 05/08/25 14:52 Pulse Oximetry 96 05/08/25 14:52 Oxygen Delivery Me thod Room Air 05/08/25 13:24 Fraction of Inspir ed Oxygen 21 05/05/25 23:12 MDM - Chest Pain Medical Decision Making Patient signed out to me at shift change by Dr. Francisco. Patient reiterates to me that she is here for chest pain and back pain and abdominal pain. Labs show UTI and LINDA for which she received IV fluids and ceftriaxone. EKG is reassuring and troponin is commensurate with LINDA. I do not suspect ACS. CT scan of the abdomen shows nothing acute. She will be admitted to the hospital service for further fluids and antibiotic therapy. Lab Data 05/08/25 01:19 05/08/25 01:19 Radiology Impressions Chest X-Ray 05/05/25 14:23 IMPRESSION: 1. Lungs are clear. 2. Stable cardiac enlargement. Abdomen/Pelvis CT 05/05/25 16:34 IMPRESSION: 1. Subtle infiltration of the sigmoid mesocolon without definitive evidence of diverticulitis. Possible scarring related to remote inflammation. A chronic or recurrent low-grade inflammatory process of the sigmoid colon is not excluded. 2. Incidental findings above. Shoulder X-Ray 05/07/25 10:16 IMPRESSION: Mild arthritic changes Laboratory Results WBC 3.06 10^3/uL (3.29-11.43) L 05/05/25 14:07 RBC 4.15 10^6/uL (3.85-5.65) 05/05/25 14:07 Hgb 12.00 g/dL (11.27-16.99) 05/05/25 14:07 Hct 36.2 % (36-47) 05/05/25 14:07 MCV 87.2 fl (85-98) 05/05/25 14:07 MCH 28.9 pg (27-33) 05/05/25 14:07 MCHC 33.1 g/dL (30-55) 05/05/25 14:07 RDW 14.3 % (12.1-15.1) 05/05/25 14:07 Plt Count 194 10^3/cmm (157-399) 05/05/25 14:07 MPV 9.4 fL (7.4-10.4) 05/05/25 14:07 Neut % (Auto) 53.0 % 05/05/25 14:07 Lymph % (Auto) 41.5 % 05/05/25 14:07 [place] % (Auto) 4.2 % 05/05/25 14:07 Eos % (Auto) 0.3 % 05/05/25 14:07 Baso % (Auto) 0.7 % 05/05/25 14:07 Neut # (Auto) 1.62 10^3/uL (1.8-7.7) L 05/05/25 14:07 Lymph # (Auto) 1.3 10^3/uL (0.8-4.8) 05/05/25 14:07 [place] # (Auto) 0.1 10^3/uL (0.2-0.9) L 05/05/25 14:07 Eos # (Auto) 0.0 10^3/uL (0.0-0.8) 05/05/25 14:07 Baso # (Auto) 0.0 10^3/uL (0.0-0.1) 05/05/25 14:07 Nucleated RBC % (auto) 0 % 05/05/25 14:07 Nucleated RBCs # 0.0 /100WBC 05/05/25 14:07 Specimen Type Arterial 05/05/25 14:55 Sample Site Brachial, left 05/05/25 14:55 ABG pH 7.39 (7.35-7.45) 05/05/25 14:55 ABG pCO2 31.4 mmHg (35-45) L 05/05/25 14:55 ABG pO2 67.9 mmHg (80.0-100.0) L 05/05/25 14:55 ABG PO2/FiO2 Ratio 323 05/05/25 14:55 ABG HCO3 19.0 mmol/L (22-26) L 05/05/25 14:55 ABG O2 Saturation 94.4 05/05/25 14:55 ABG Base Excess -5.0 mmol/L (-2.0-2.0) L 05/05/25 14:55 [place] Test N/a 05/05/25 14:55 A-a O2 Gradient 5.5 mmHg (5-10) 05/05/25 14:55 Hematocrit 37.8 % (37-47) 05/05/25 14:55 Hgb O2 Saturation 93.6 % (95-100) L 05/05/25 14:55 Carboxyhemoglobin 0.7 %THgb (0.4-20.1) 05/05/25 14:55 Methemoglobin 0.1 % (0.4-1.5) L 05/05/25 14:55 Total Hemoglobin 12.3 g/dL (12-16) 05/05/25 14:55 Sodium 130.0 mmol/L (131-143) L 05/05/25 14:55 Potassium 4.2 mmol/L (3.5-5.0) 05/05/25 14:55 Glucose 132.0 mg/dL (70-115) H 05/05/25 14:55 Ionized Calcium 1.1 mmol/L (1.1-1.4) 05/05/25 14:55 O2 Delivery Device Room air 05/05/25 14:55 FiO2 21.0 % 05/05/25 14:55 Theoretical Physics Teacher ID Amh 05/05/25 14:55 Sodium 130 mmol/L (136-145) L 05/05/25 14:07 Potassium 4.4 mmol/L (3.5-5.1) 05/05/25 14:07 Chloride 97 mmol/L (98-107) L 05/05/25 14:07 Carbon Dioxide 19 mmol/L (22-29) L 05/05/25 14:07 Anion Gap 18.4 (5-19) 05/05/25 14:07 BUN 39 mg/dL (8-23) H 05/05/25 14:07 Creatinine 2.2 mg/dL (0.5-0.9) H 05/05/25 14:07 GFR Calculation 22.5 mL/min (90-130) L 05/05/25 14:07 Glucose 160 mg/dL (65-115) H 05/05/25 14:07 POC Glucose 126 mg/dL (70-110) H 05/05/25 17:13 Estimat Average Glucose 140 05/05/25 14:07 Hemoglobin A1c 6.5 % (4.0-6.0) H 05/05/25 14:07 Calculated Osmolality 283 mOsm/kg (285-295) L 05/05/25 14:07 Lactic Acid 2.0 mmol/L (0.5-2.2) 05/05/25 14:07 Calcium 8.0 mg/dL (8.5-10.5) L 05/05/25 14:07 Total Bilirubin 0.2 mg/dL (0.15-1.2) 05/05/25 14:07 AST 102 U/L (0-32) H 05/05/25 14:07 ALT 71 U/L (0-33) H 05/05/25 14:07 Alkaline Phosphatase 68 U/L (35-105) 05/05/25 14:07 Troponin T Baseline 16 ng/L (0-10) H 05/05/25 14:07 Troponin T 120 Minute 17.43 ng/L (0-10) H 05/05/25 16:13 Delta Troponin T 1.43 ABS# (0-10) 05/05/25 16:13 NT-Pro-B Natriuret Pep 96 pg/mL (0-125) 05/05/25 14:07 Total Protein 5.9 g/dL (6.6-8.7) L 05/05/25 14:07 Albumin 3.7 g/dL (3.5-5.2) 05/05/25 14:07 Globulin 2.2 g/dL (1.3-4.6) 05/05/25 14:07 Triglycerides 134 mg/dL (0-150) 05/05/25 14:07 Cholesterol 78 mg/dL (0-200) 05/05/25 14:07 LDL Cholesterol, Calc 16 mg/dL (50-129) L 05/05/25 14:07 HDL Cholesterol 35 mg/dL (60-100) L 05/05/25 14:07 LDL/HDL Ratio 0.46 RATIO (0.00-3.22) 05/05/25 14:07 Cholesterol/HDL Ratio 2.23 mg/dL (0.0-4.40) 05/05/25 14:07 Lipase 50 U/L (13-60) 05/05/25 14:07 Procalcitonin 0.13 ng/mL (0-0.5) 05/05/25 14:07 TSH 2.07 uIU/mL (0.27-4.20) 05/05/25 14:07 Urine Color Yellow (Yellow) 05/05/25 15:50 Urine Appearance Clear (CLEAR) 05/05/25 15:50 Urine pH 5.5 (5-7) 05/05/25 15:50 Ur Specific [place] 1.016 (1.005-1.030) 05/05/25 15:50 Urine Protein 1+ (Negative) A 05/05/25 15:50 Urine Glucose (UA) Negative (Normal) 05/05/25 15:50 Urine Ketones Negative (Negative) 05/05/25 15:50 Urine Blood Negative (Negative) 05/05/25 15:50 Urine Nitrate Positive (Negative) A 05/05/25 15:50 Urine Bilirubin Negative (Negative) 05/05/25 15:50 Urine Urobilinogen 0.2 mg/dL (Negative) 05/05/25 15:50 Ur Leukocyte Esterase 2+ (Negative) A 05/05/25 15:50 Urine RBC 0-2 /hpf (0-2) 05/05/25 15:50 Urine WBC >100 /hpf (0-5) H 05/05/25 15:50 Ur Squamous Epith Cells 0-5 /hpf (0-5) 05/05/25 15:50 Amorphous Sediment Not Reportable 05/05/25 15:50 Urine Bacteria 4+ /hpf (NONE) H 05/05/25 15:50 Hyaline Casts 4.95 /lpf 05/05/25 15:50 All radiology interpretation(s) finalized by discharge Discharge Plan Discharge Patient Disposition: Admitted As Inpatient Admit Provider: Ronald Umana Clinical Impression: LINDA (acute kidney injury), Pyelonephritis Condition: Stable Discharge Diet: Advance as tolerated and Usual diet Discharge Activity: Resume usual activity and Increase activity as tolerated Coding Level of Care Code ED Forging Dies Final 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
[2025-05-05 14:31] LABS: Hematocrit 36.2 % (36-47); Hemoglobin 12.00 g/dL (11.27-16.99); Mean Corpuscular HGB Conc 33.1 g/dL (30-55); Mean Corpuscular Hemoglobin 28.9 pg (27-33); Mean Corpuscular Volume 87.2 fl (85-98); Nucleated Red Blood Cells % 0 %; Platelet Count 194 10^3/cmm (157-399); Red Blood Count 4.15 10^6/uL (3.85-5.65); White Blood Count 3.06 10^3/uL (3.29-11.43)
[2025-05-05 14:42] LABS: Lactic Sepsis W/Reflex 2.0 mmol/L (0.5-2.2)
[2025-05-05 14:44] LABS: Troponin(5th) Baseline 16 ng/L (0-10)
[2025-05-05 14:53] LABS: NT Pro B Type Natriuretic Pept 96 pg/mL (0-125); Procalcitonin 0.13 ng/mL (0-0.5)
[2025-05-05 15:04] LABS: Alanine Aminotransferase 71 U/L (0-33); Albumin Level 3.7 g/dL (3.5-5.2); Alkaline Phosphatase 68 U/L (35-105); Anion Gap 18.4 (5-19); Aspartate Amino Transferase 102 U/L (0-32); Blood Urea Nitrogen 39 mg/dL (8-23); Calcium 8.0 mg/dL (8.5-10.5); Carbon Dioxide 19 mmol/L (22-29); Chloride 97 mmol/L (98-107); Creatinine Clr Calc Pharmacy 38.3325; Globulin 2.2 g/dL (1.3-4.6); Glucose 160 mg/dL (65-115); Lipase 50 U/L (13-60); Osmolality Calculated 283 mOsm/kg (285-295); Potassium 4.4 mmol/L (3.5-5.1); Sodium 130 mmol/L (136-145); Total Protein 5.9 g/dL (6.6-8.7)
[2025-05-05 15:07] LABS: ABG PCO2 31.4 mmHg (35-45); ABG PH Result 7.39 (7.35-7.45); Alveolar-Arterial Oxygen Gradi 5.5 mmHg (5-10); Arterial Blood Gas Hematocrit 37.8 % (37-47); Blood Gas Operator Identificat AMH; Blood Gas Sample Site Brachial, left; Blood Gas Sample Type Arterial; Carboxyhemoglobin 0.7 %THgb (0.4-20.1); Glucose Level-ABG 132.0 mg/dL (70-115); HCO3 ABG 19.0 mmol/L (22-26); Ionized Calcium Level - ABG 1.1 mmol/L (1.1-1.4); Methemoglobin 0.1 % (0.4-1.5); Oxygen Saturation ABG 94.4; PO2 ABG 67.9 mmHg (80.0-100.0); PO2 FiO2 Ratio Arterial Blood 323; Potassium Level - ABG 4.2 mmol/L (3.5-5.0); Sodium Level - ABG 130.0 mmol/L (131-143)
[2025-05-05 15:16] LABS: Slide Review Slide Review Perform
[2025-05-05 16:00] LABS: Glucose Urine UA Negative (Normal); Nitrate Urine Positive (Negative); Specific Gravity, Urine 1.016 (1.005-1.030)
[2025-05-05 16:03] LABS: Add Urine Microscopic? YES
--- NOTE | 2025-05-05 16:34 | CTR_ITS ---
PROCEDURE INFORMATION: Exam: CT Abdomen And Pelvis Without Contrast Exam date and time: 05/05/2025 6:05 PM Age: 64 years old Clinical indication: Abdominal pain; Other: Ed[place] flank pain TECHNIQUE: Imaging protocol: Computed tomography of the abdomen and pelvis without contrast. Radiation optimization: All CT scans at this facility use at least one of these dose optimization techniques: automated exposure control; mA and/or kV adjustment per patient size (includes targeted exams where dose is matched to clinical indication); or iterative reconstruction. COMPARISON: CT abdomen pelvis w con* [id number] 08/25/2024 8:57 AM RADIATION DOSE METRICS: Total DLP (mGy-cm): 1376.25 FINDINGS: Lungs: Lung bases are clear. Liver: There is diffuse low-attenuation of the liver relative to the spleen consistent with fatty infiltration. There is no focal liver abnormality. Gallbladder and biliary ducts: The gallbladder is normal. There is no biliary dilation. Pancreas: There is mild atrophy of the pancreas. Spleen: The spleen is unremarkable. Adrenal glands: The adrenal glands are unremarkable. Kidneys and ureters: The kidneys are unremarkable. No hydronephrosis or stones. No ureteral dilation. Stomach and bowel: The stomach is unremarkable. The small bowel is nondilated. There is mild diverticulosis in the transverse and proximal descending colon. There is moderate diverticulosis in the distal descending and sigmoid colon. No focal diverticular inflammation is clearly visible but there is subtle infiltration of the proximal sigmoid mesocolon visible on coronal series 7, image 82 through 76. The finding is similar to 08/25/2024. Appendix: The appendix is normal. Intraperitoneal space: There is no free air or significant intraperitoneal free fluid. Vasculature: There is mild aortic atherosclerotic disease. Lymph nodes: There is no lymphadenopathy in the retroperitoneum, mesentery, pelvis or inguinal regions. Urinary bladder: The urinary bladder is unremarkable. Reproductive: The uterus is unremarkable. There is no adnexal mass or large cyst. Bones/joints: There is moderate degenerative disease in the lumbar spine. There is mild degenerative disease of both hips. The bony pelvis is intact. Soft tissues: There is a small fat containing umbilical hernia. CT/CT kidney stone [id number] IMPRESSION: 1. Subtle infiltration of the sigmoid mesocolon without definitive evidence of diverticulitis. Possible scarring related to remote inflammation. A chronic or recurrent low-grade inflammatory process of the sigmoid colon is not excluded. 2. Incidental findings above.
[2025-05-05 17:18] LABS: Troponin 5 2HR 17.43 ng/L (0-10); Troponin 5 2HR Delta 1.43 ABS# (0-10)
[2025-05-05] MEDS: cefTRIAXone 1,000 mg SDV 1000 MG IVP (18:31)
[2025-05-05] MEDS: morphine 4 mg/mL SDV 1 mL IVP (19:52)
--- NOTE | 2025-05-05 20:23 | ECG_ITS ---
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 Measurements Intervals [place] Rate: 71 P: 59 LA: 184 QRS: 80 QRSD: 97 T: 51 QT: 386 QTc: 420 Interpretive Statements SINUS RHYTHM WITH OCCASIONAL SUPRAVENTRICULAR PREMATURE COMPLEXES LOW QRS VOLTAGE IN PRECORDIAL LEADS [QRS DEFLECTION < 1.0 mV IN CHEST LEADS] Compared to ECG 05/05/2025 15:28:00 Intraventricular conduction delay no longer present Electronically Signed On 05-07-2025 09:40:10 CDT by Cristian Love M.D. [email or web address]
[2025-05-05 20:58] LABS: Troponin 5 6HR 15.82 ng/L (0-10)
[2025-05-05 21:07] LABS: Troponin 5 6HR Delta -0.18 ng/L (0-12)
--- NOTE | 2025-05-05 21:19 | PM.HP ---
Providers/Chief Complaint Admitting Physician: Ronald Umana MD Primary Care Provider: Ciaran Nelson MD Chief Complaint: CP SOB low grade fever headache [place] History of Present Illness Arelis Nathan is a 64 year old female with a past medical history of heart failure with preserved ejection fraction, hypertension, hyperlipidemia, LVH, type 2 diabetes mellitus, asthma, chronic pain, GERD, patient is on Eliquis for history of pulmonary embolism, who presents [facility] due to a week history of fevers, chills, right flank pain, nausea, vomiting. Currently patient is alert oriented x 3, following all commands, she does for the 60s, she has been feeling fatigue, malaise, fevers, chills, nausea, vomiting, has bilateral lower back pain but specially exquisite right flank pain, does report a cough, does report wheezing, Review of Systems Resp: Reports: dyspnea and non-productive cough GI: Reports: nausea and vomiting Medications/Allergies Home Medications ?Medication ?Instructions ?Recorded ?Confirmed ?Last Taken ?Type cholecalciferol (vitamin D3) 25 25 mcg PO DAILY 10/03/21 05/02/25 12/06/24 History mcg (1,000 unit) capsule (Vitamin D3) folic acid 1 mg tablet 1 mg PO DAILY 10/03/21 05/02/25 12/06/24 History multivitamin 1 tab PO DAILY 10/03/21 05/02/25 12/06/24 History blood sugar diagnostic #100 ea 05/13/24 05/02/25 Unknown Rx blood-glucose meter #1 ea 05/13/24 05/02/25 Unknown Rx lancets 23 gauge #100 ea 05/13/24 05/02/25 Unknown Rx blood sugar diagnostic (OneTouch #100 ea 08/11/24 05/02/25 Unknown Rx Verio test strips) nitroglycerin 0.4 mg sublingual 0.4 mg sublingual Q5M PRN chest 08/11/24 05/02/25 Unknown Rx tablet (Nitrostat) pain #25 tabs tizanidine 4 mg tablet 4 mg PO Q8H PRN muscle spasticity 10/11/24 05/02/25 Unknown Rx #90 tabs valsartan 320 0.5 tab PO BID #45 tabs 03/05/25 08/18/25 03/24/25 Rx mg-hydrochlorothiazide 25 mg tablet albuterol sulfate 90 mcg/actuation 2 puff inhalation Q6H PRN 12/06/24 05/02/25 Unknown History aerosol inhaler Shortness Of Breath Or Wheezing isosorbide mononitrate 30 mg 30 mg PO BID #90 tabs 12/06/24 05/02/25 12/06/24 Rx tablet,extended release 24 hr methocarbamol 750 mg tablet 750 mg PO Q8H PRN back pain #60 12/16/24 05/02/25 Unknown Rx tabs galcanezumab-gnlm 120 mg/mL 120 mg SUBCUT Q30D #1 mL 01/20/25 05/02/25 Unknown Rx subcutaneous pen injector (Emgality Pen) galcanezumab-gnlm 120 mg/mL 240 mg (2 mL) SUBCUT ONCE #2 mL 01/20/25 05/02/25 Unknown Rx subcutaneous pen injector (Emgality Pen) metoclopramide HCl 10 mg tablet 10 mg PO BID #120 tabs 01/20/25 05/02/25 Unknown Rx (Reglan) lovastatin 20 mg tablet 20 mg PO DAILY #90 tabs 01/28/25 05/02/25 Unknown Rx cam walker #1 ea 02/08/25 05/02/25 Unknown Rx crutch #2 ea 02/08/25 05/02/25 Unknown Rx apixaban 5 mg tablet (Eliquis) 5 mg PO BID #180 tabs 03/03/25 05/02/25 Unknown Rx ASO left ankle brace #1 ea 03/24/25 05/02/25 Unknown Rx tramadol 50 mg tablet 100 mg (2 x 50 mg) PO Q8H PRN 04/04/25 05/02/25 Unknown Rx pain, severe #180 tabs varicella-zoster glycoE [id number] 0.5 ml IM ONCE #1 ea 04/04/25 05/02/25 Unknown Rx adj(PF) 50 mcg/0.5 mL IM susp, kit (Shingrix (PF)) fluticasone 250 mcg-salmeterol 50 1 inh inhalation BID #60 ea 04/07/25 05/02/25 Unknown Rx mcg/dose blistr powdr for inhalation (Advair Diskus) montelukast 10 mg tablet 10 mg PO DAILY #90 tabs 04/19/25 05/02/25 Unknown Rx carvedilol 12.5 mg tablet See Rx Instructions .Route 04/27/25 05/02/25 Unknown Rx .COMPLEX #270 tabs zolpidem 10 mg tablet 10 - 20 mg (1 - 2 x 10 mg) PO 04/27/25 05/02/25 Unknown Rx BEDTIME PRN insomnia #60 tabs insulin glargine U-300 conc 300 30 unit (0.1 mL) SUBCUT DAILY PRN 04/28/25 05/02/25 Unknown Rx unit/mL (3 mL) subcutaneous pen Insulin for diabetes #6 mL metformin 1,000 mg tablet 1,000 mg PO BID #180 tabs 04/28/25 05/02/25 Unknown Rx ondansetron 8 mg disintegrating 8 mg PO Q12H PRN nausea and 05/02/25 05/02/25 Unknown Rx tablet vomiting #60 tabs amitriptyline 50 mg tablet See Rx Instructions .Route 05/03/25 Unknown Rx .COMPLEX #90 tabs Allergies Allergy/AdvReac Type Severity Reaction Status Date / Time topiramate (From Topamax) Allergy Intermediate ADR-Nausea Verified 05/02/25 09:54 erythromycin base Allergy Unknown Unresponsiv Verified 05/02/25 09:54 e promethazine (From Phenergan) Allergy ADR-Nausea Verified 05/02/25 09:54 PFSH Acute PFSH: Medical History Diabetic radiculopathy Anxiety Chronic pain Persistent headaches Left-sided chest wall pain Right-sided chest wall pain Right sided abdominal pain Chronic nausea Osteoarthritis of left knee Constipation by delayed colonic transit CKD stage 2 due to type 2 diabetes mellitus Diverticulosis large intestine w/o perforation or abscess w/o bleeding COVID-19 Positive test for COVID-19 05/17/2021 Chronic generalized abdominal pain Morbid obesity with body mass index of 45.0-49.9 in adult Primary localized osteoarthritis of knees, bilateral Breast lump on left side at 6 o'clock position Insomnia Osteoarthritis (arthritis due to wear and tear of joints) thoracic and Lumbar spine, knees & multiple joints Hypertension Type 2 diabetes mellitus Hx of pulmonary embolus Asthma History of chronic pain Diabetic neuropathy Hyperlipidemia Surgical History Status post right knee replacement Hx of right knee surgery 30 yrs ago [place] Family History Other Cancer Diabetes Hyperlipidemia Hypertension LVH (left ventricular hypertrophy) Stroke Social History Smoking and tobacco/nicotine status: never used tobacco/nicotine Alcohol intake: never Substance/Drug Use: never Caregiver/support person: Yes Lives independently: Yes Household members: spouse Marital status: Number of children: 1 Number of grandchildren: 2 Current occupational status: retired Vitals/I&O/Wt Last Vital Signs Temp 99.8 F H 05/05/25 13:30 Pulse 71 05/05/25 20:48 Resp 14 05/05/25 20:48 BP 122/68 05/05/25 20:48 Pulse Ox 93 05/05/25 20:48 O2 Del Method Room Air 05/05/25 15:41 05/05/25 05/05/25 05/05/25 06:59 14:59 22:59 Intake Total 1000 / 1000 Balance 1000 / 1000 Weight last 48 hrs Weight 136.078 kg Physical Exam Const: COMMON NORMALS: no acute distress and patient oriented x3 Eye: COMMON NORMALS: Equal, round and reactive pupils present and EOMs intact bilaterally Resp: COMMON NORMALS: normal respiratory effort, No retractions, No use of accessory muscles and clear to auscultation bilaterally AUSCULTATION: clear to auscultation bilaterally Cardio: COMMON NORMALS: no JVD, regular rate, regular rhythm, S1 normal heart sound present and S2 normal heart sound present RATE: regular rate RHYTHM: regular rhythm HEART SOUNDS: S1 normal heart sound present and S2 normal heart sound present GI: COMMON NORMALS: Normal to inspection, nondistended, normoactive bowel sounds present, Soft to palpation and non-tender Extremity: COMMON NORMALS: no calf tenderness and no pedal edema Neuro: COMMON NORMALS: patient oriented x3, CN's II-XII intact bilaterally and moves all extremities Psych: COMMON NORMALS: mental status grossly normal Quick SOFA Score: Respiratory Rate: 14 Blood Pressure: 122/68 Joseph Coma Scale: 15 qSOFA Score: 0 If qSOFA score 2 or greater, continue: PaO2/FiO2 Ratio (mmHg): 323 Blood Pressure Mean: 80 Bilirubin (mg/dl): 0.2 Platelets (x10?/ml): 194 Creatinine (mg/dl): 2.2 SOFA Score: 3 Evaluation: Current stage of sepsis: sepsis Sepsis stage criteria used: [facility] Sep-1 and Sepsis-3 Crystalloid fluids: less than 30 mL/kg crystalloid fluids ordered Blood cultures ordered: Yes Possible source: genitourinary Focused Exam: Vital signs: Temp Pulse Resp BP Pulse Ox O2 Del Method 05/05/25 20:48 71 14 122/68 93 05/05/25 20:00 68 19 H 118/62 97 05/05/25 19:52 19 H 05/05/25 18:23 67 25 H 97 05/05/25 15:41 63 26 H 111/66 93 Room Air 05/05/25 13:30 99.8 F H 71 18 105/70 92 Room Air Capillary refill: < 3 Seconds Peripheral pulse strength: 2+ Slightly Diminished Peripheral pulse location: Radial and Pedal Skin exam: turgor normal Date exam was performed: 05/05/25 Time exam was performed: 21:30 Sepsis Screen No Definite Risk Today, 20:00 Respiratory Rate, (12 - 18) 14 breaths/min Today, 20:48 Blood Pressure 122/68 mmHg Today, 20:48 [place] Coma Scale Score 15 Today, 13:30 Quick SOFA Score 0 Today, 20:00 SOFA Score: ABG PO2/FiO2 Ratio 323 Today, 14:55 [place] Coma Scale Score 15 Today, 13:30 Blood Pressure Mean 80 mmHg Today, 20:00 Total Bilirubin, (0.15-1.2) 0.2 mg/dL Today, 14:07 Platelet Count, (157-399) 194 10^3/cmm Today, 14:07 Creatinine, (0.5-0.9) 2.2 mg/dL H Today, 14:07 Data 05/05/25 14:07 05/05/25 14:07 Micro: Microbiology 05/05/25 14:57 Blood Culture - Preliminary Blood SPECIMEN COLLECTED 05/05/25 14:07 Blood Culture - Preliminary Blood SPECIMEN COLLECTED A&P Assessment and plan 1. Pyelonephritis of right kidney: 2. UTI (urinary tract infection): 3. Sepsis: 4. Hx of pulmonary embolus: 5. Hypertension: 6. Hyperlipidemia: 7. Type 2 diabetes mellitus: 8. CKD stage 2 due to type 2 diabetes mellitus: 9. Transaminitis: Plan: Right pyelonephritis - Clinically patient has quiescent right CVA tenderness - Although CT scan does not show any radiographic evidence of pyelonephritis - UA with evidence of UTI Plan - Urine cultures - Blood cultures - IV fluids - IV Rocephin Acute kidney injury, with evidence of sepsis, IV fluids Sepsis, secondary to right pyelonephritis, given LINDA, fevers, History of pulmonary embolism, Eliquis Transaminitis, monitor Type 2 diabetes mellitus, low-dose sliding scale Full code Eliquis for DVT prophylaxis PDMP PDMP Reviewed: Not Reviewed Attestations Medical Necessity Statement*: Patient requires hospitalization, inpatient, greater than 2 midnights, for right pyelonephritis, UTI, LINDA, sepsis Diagnoses Pyelonephritis of right kidney N12 UTI (urinary tract infection) N39.0 Sepsis A41.9 Hx of pulmonary embolus Z86.711 Hypertension I10 Hyperlipidemia E78.5 Type 2 diabetes mellitus E11.9 CKD stage 2 due to type 2 diabetes mellitus E11.22; N18.2 Transaminitis R74.01
[2025-05-05 22:06] LABS: Cholesterol 78 mg/dL (0-200); HDL Cholesterol 35 mg/dL (60-100); Thyroid Stimulating Hormone 2.07 uIU/mL (0.27-4.20); Triglycerides 134 mg/dL (0-150)
[2025-05-05 22:11] LABS: Estmated Average Glucose 140; Hemoglobin A1C 6.5 % (4.0-6.0)
[2025-05-05] MEDS: morphine 4 mg/mL SDV 1 mL 1 MG IVP (23:00)
[2025-05-06] VITALS (11 sets, daily range): BP systolic 102–145; BP diastolic 61–82; PULSE 59–72; RESP 15–21; TEMP 36.7–37.2; O2SAT 93–98
[2025-05-06 00:25] LABS: Respiratory Syncytial Virus Ce NEGATIVE (Negative); SARS-CoV-2 PCR NEGATIVE (Negative)
--- NOTE | 2025-05-06 04:52 | PC.NURSE ---
Nurse attempted to place new iv access due to other access leaking. Nurse was unsuccessful two other nurses attempted to place iv. This nurse called for ultrasound guided iv and is waiting on iv to be placed. IV fluids paused.
[2025-05-06 05:40] LABS: Hematocrit 37.3 % (36-47); Hemoglobin 12.20 g/dL (11.27-16.99); Mean Corpuscular HGB Conc 32.7 g/dL (30-55); Mean Corpuscular Hemoglobin 29.1 pg (27-33); Mean Corpuscular Volume 89.0 fl (85-98); Nucleated Red Blood Cells % 0 %; Platelet Count 197 10^3/cmm (157-399); Red Blood Count 4.19 10^6/uL (3.85-5.65); White Blood Count 4.40 10^3/uL (3.29-11.43)
[2025-05-06 06:11] LABS: Anion Gap 16.2 (5-19); Blood Urea Nitrogen 33 mg/dL (8-23); Calcium 8.1 mg/dL (8.5-10.5); Carbon Dioxide 21 mmol/L (22-29); Chloride 101 mmol/L (98-107); Creatinine Clr Calc Pharmacy 49.6068; Glucose 172 mg/dL (65-115); Osmolality Calculated 289 mOsm/kg (285-295); Potassium 4.2 mmol/L (3.5-5.1); Sodium 134 mmol/L (136-145)
--- NOTE | 2025-05-06 08:41 | PM.PN ---
Subjective Subjective: The patient was seen in the morning and was having right flank pain. He was lying on 1 side examined the patient and adequate analgesia provided Vitals/I&O/Wt Last Vital Signs Temp 98.7 F 05/06/25 07:39 Pulse 69 05/06/25 07:39 Resp 20 H 05/06/25 07:39 BP 126/61 05/06/25 07:39 Pulse Ox 96 05/06/25 07:39 O2 Del Method Room Air 05/06/25 07:39 FiO2 21 05/05/25 23:12 05/05/25 05/06/25 05/06/25 22:59 06:59 14:59 Intake Total 1000 / 1000 920 / 1920 Balance 1000 / 1000 920 / 1920 Weight last 48 hrs Weight 136.078 kg Weight 136.486 kg Weight 136.078 kg Physical Exam Narrative: General: Alert oriented x3, patient seen in moderate distress due to right-sided flank pain and back pain HEENT: Normocephalic, atraumatic, EOMI, breathing on room air Cardio: Regular rate rhythm, normal S1-S2, no murmurs rubs gallops, JVD normal Respiratory: Good bilateral air entry, no wheezes no rhonchi appreciated GI: Abdomen soft, nontender, nondistended, normoactive bowel sounds present all 4 quadrants, right-sided flank tenderness on palpation no midline tenderness on spine palpation Neuro: Cranial nerves II to XII intact, strength 5/5, sensation 5/5, no gross neurological deficit Behavior: Appropriate and cooperative Extremities: Pulses 2+, no edema, no cyanosis Skin: Visible skin intact, no rashes Data 05/06/25 05:20 05/06/25 05:20 Micro: Microbiology 05/05/25 14:57 Blood Culture - Preliminary Blood SPECIMEN COLLECTED 05/05/25 14:07 Blood Culture - Preliminary Blood SPECIMEN COLLECTED A&P Assessment and plan 1. Pyelonephritis of right kidney: 2. UTI (urinary tract infection): 3. Sepsis: 4. Hx of pulmonary embolus: 5. Primary hypertension: 6. Mixed hyperlipidemia: 7. Type 2 diabetes mellitus with other neurologic complication, without long-term current use of insulin: 8. CKD stage 2 due to type 2 diabetes mellitus: 9. Transaminitis: Plan: 4yo F with Hx of CAD, HFpEF, LVH, HTN, HLD, aortic valve stenosis, DM2, migraine disorder, Hx of pulmonary HTN and PE's, asthma, chronic pain, insomnia Presented to the hospital with flank pain nausea and vomiting associated with fever chills and diagnosed with severe UTI mild sepsis criteria met, with tachypnea and febrile episode and WBC count less than 4 Right pyelonephritis based on UA - Clinically patient has quiescent right CVA tenderness having UA positive for UTI - Although CT scan does not show any radiographic evidence of pyelonephritis Plan - Urine cultures to follow - Blood cultures to follow, Preliminary negative - IV fluids - IV Rocephin to continue - Adequate analgesia Acute kidney injury and electrolyte imbalance(mild hyponatremia) - with evidence of sepsis, IV fluids - Currently improving and to monitor - Mild hyponatremia secondary to sepsis - continue adequate hydration and to monitor History of pulmonary embolism, - Continue Eliquis Transaminitis: - Continue to monitor and hold any hepatotoxic drug - If continue to rise then consider ultrasound liver, Asthma: DuoNeb scheduled and continue montelukast Type 2 diabetes mellitus: Start on insulin glargine 10 units reduced dose from her home medication (patient on 30 units daily ) low-dose sliding scale to continue Need adequate blood glucose control since patient having UTI and can further worsen Anxiety disorder: - Continue amitriptyline at bedtime Heart failure with preserved ejection fraction: Can resume beta-blockers carvedilol 12.5 mg twice daily and nitrates to hold at the moment anticipating in case her blood pressure becomes unstable, Resume medications once the blood pressure is stable Full code Eliquis for DVT based on history of PE PDMP PDMP Reviewed: Not Reviewed Attestations Medical Necessity Statement*: Patient will stay in the hospital for further management of sepsis and complicated UTI Time Spent in Patient Care: 16 - 35 minutes (>than 50% of time spent in counselling and/or direct pt care on unit). Other Attestations: Patient condition has been discussed at length with the patient/family, I have independently reviewed the chart labs imaging and diagnostics and EKG. the goals of care and code status with the patient/family/NOK/legal employer relations representative, and documented accordingly. The patient/family has been informed about the current condition and further plan of care. Agreed with the plan of care and understood without any language barrier. This documentation was created by [employer] capacity planner software. Every effort was made to ensure accuracy of capacity planner. Any obvious errors or omissions should be clarified with the author of the document. Coding Level of Care Code 02257 Diagnoses Pyelonephritis of right kidney N12 UTI (urinary tract infection) N39.0 Sepsis A41.9 Hx of pulmonary embolus Z86.711 Primary hypertension I10 Hypertension type: primary hypertension Mixed hyperlipidemia E78.2 Hyperlipidemia type: mixed hyperlipidemia Type 2 diabetes mellitus with other neurologic complication, without long-term current use of insulin E11.49 Diabetes mellitus complication detail: with other neurological complication Diabetes mellitus complication status: with neurologic complications Diabetes mellitus usp insulin use: without assistant terminal manager use CKD stage 2 due to type 2 diabetes mellitus E11.22; N18.2 Transaminitis R74.01
[2025-05-06] MEDS: cefTRIAXone 1,000 mg SDV 1000 MG IVP (09:47)
[2025-05-06] MEDS: HYDROmorphone 0.5 MG/0.5 ML INJ SUBCUT (10:59)
[2025-05-06] MEDS: ondansetron 2 mg/ML SDV 2 mL 4 MG IVP ×2 (11:15→17:43)
[2025-05-06] MEDS: oxyCODONE 5 mg IR Tab/Cap PO ×2 (17:17→21:39)
--- NOTE | 2025-05-06 21:19 | PC.NURSE ---
Nurse contacted Dr. Umana to advise him that patient was starting to sound crackly in the lung bases. Fluids held and one time order of iv lasix ordered.
[2025-05-06] MEDS: FUROsemide 10 mg/mL SDV 4mL 40 MG IVP (21:38)
[2025-05-06] MEDS: insulin glargine 100 units/1 mL 10 UNIT SUBCUT (21:39)
[2025-05-07] VITALS (12 sets, daily range): BP systolic 102–154; BP diastolic 59–82; PULSE 60–80; RESP 15–20; TEMP 36.4–36.8; O2SAT 91–100
[2025-05-07 05:21] LABS: Hematocrit 35.9 % (36-47); Hemoglobin 11.80 g/dL (11.27-16.99); Mean Corpuscular HGB Conc 32.9 g/dL (30-55); Mean Corpuscular Hemoglobin 29.1 pg (27-33); Mean Corpuscular Volume 88.4 fl (85-98); Platelet Count 204 10^3/cmm (157-399); Red Blood Count 4.06 10^6/uL (3.85-5.65); White Blood Count 3.63 10^3/uL (3.29-11.43)
[2025-05-07 05:46] LABS: Alanine Aminotransferase 71 U/L (0-33); Albumin Level 3.5 g/dL (3.5-5.2); Alkaline Phosphatase 62 U/L (35-105); Anion Gap 18.2 (5-19); Aspartate Amino Transferase 79 U/L (0-32); Blood Urea Nitrogen 25 mg/dL (8-23); Calcium 8.4 mg/dL (8.5-10.5); Carbon Dioxide 22 mmol/L (22-29); Chloride 105 mmol/L (98-107); Globulin 2.6 g/dL (1.3-4.6); Glucose 151 mg/dL (65-115); Osmolality Calculated 299 mOsm/kg (285-295); Potassium 4.2 mmol/L (3.5-5.1); Sodium 141 mmol/L (136-145); Total Protein 6.1 g/dL (6.6-8.7)
[2025-05-07 05:50] LABS: Creatinine Clr Calc Pharmacy 56.2211
[2025-05-07 06:24] LABS: Absolute Segmented Neutrophil 0.9 10/cmm (1.6-7.1); Band Neutrophils Absolute 0.1 10^3/cmm (0.0-1.2); Slide Review Slide Review Perform; Total Cells Counted 100 (0-100)
[2025-05-07 06:25] LABS: Atypical Lymphs 17.0 % (0-5)
[2025-05-07] MEDS: cefTRIAXone 1,000 mg SDV 1000 MG IVP (08:46)
[2025-05-07] MEDS: HYDROmorphone 0.5 MG/0.5 ML INJ SUBCUT (08:56)
--- NOTE | 2025-05-07 10:16 | XRR_ITS ---
PROCEDURE INFORMATION: Exam: XR Right Shoulder Exam date and time: 05/07/2025 2:00 PM Age: 64 years old Clinical indication: Pain; Shoulder; Right; Additional info: RT shouldert shoulder pain; No known injury; Limited romr pain TECHNIQUE: Imaging protocol: Radiologic exam of the right shoulder. Views: 2 or more views. COMPARISON: CR (CHEST, ) 05/05/2025 2:39 PM FINDINGS: Bones/joints: Mild arthritic change involves the AC joint. No other arthritic changes are noted. No fracture. Soft tissues: Normal. XR/XR shoulder RT min 2V* [id number] IMPRESSION: Mild arthritic changes
--- NOTE | 2025-05-07 13:45 | PM.PN ---
Subjective Subjective: The patient was seen in the morning and was much better today lying comfortably on 1 side. Mild right shoulder pain possible muscle spasm however no difficulty in moving around the shoulder joint Vitals/I&O/Wt Last Vital Signs Temp 98.0 F 05/07/25 11:44 Pulse 61 05/07/25 11:44 Resp 20 H 05/07/25 11:44 BP 111/69 05/07/25 11:44 Pulse Ox 93 05/07/25 11:44 O2 Del Method Room Air 05/07/25 11:44 FiO2 21 05/05/25 23:12 05/06/25 05/07/25 05/07/25 22:59 06:59 14:59 Intake Total 920 / 1220 240 / 1460 480 / 480 Output Total 850 / 850 350 / 350 Balance 70 / 370 240 / 610 130 / 130 Weight last 48 hrs Weight 136.078 kg Weight 136.078 kg Weight 136.486 kg Physical Exam Narrative: General: Alert oriented x3, patient seen lying comfortably without any distress HEENT: Normocephalic, atraumatic, EOMI, breathing on room air Cardio: Regular rate rhythm, normal S1-S2, no murmurs rubs gallops, JVD normal Respiratory: Good bilateral air entry, no wheezes no rhonchi appreciated GI: Abdomen soft, nontender, nondistended, normoactive bowel sounds present all 4 quadrants, no flank tenderness elicited today Neuro: Cranial nerves II to XII intact, strength 5/5, sensation 5/5, no gross neurological deficit Behavior: Appropriate and cooperative Extremities: Mild right-sided shoulder pain without limitation of the range of motion. Likely muscle spasm Skin: Visible skin intact, no rashes Data 05/07/25 04:46 05/07/25 04:46 Micro: Microbiology 05/05/25 15:50 Urine Culture - Preliminary Urine,Clean Catch Gram Negative Rods 05/05/25 14:57 Blood Culture - Preliminary Blood NEGATIVE TO DATE 05/05/25 14:07 Blood Culture - Preliminary Blood Staphylococcus epidermidis A&P Assessment and plan 1. Pyelonephritis of right kidney: 2. UTI (urinary tract infection): 3. Sepsis: 4. Hx of pulmonary embolus: 5. Primary hypertension: 6. Mixed hyperlipidemia: 7. Type 2 diabetes mellitus with other neurologic complication, without long-term current use of insulin: 8. CKD stage 2 due to type 2 diabetes mellitus: 9. Transaminitis: Plan: 4yo F with Hx of CAD, HFpEF, LVH, HTN, HLD, aortic valve stenosis, DM2, migraine disorder, Hx of pulmonary HTN and PE's, asthma, chronic pain, insomnia Presented to the hospital with flank pain nausea and vomiting associated with fever chills and diagnosed with severe UTI mild sepsis criteria met, with tachypnea and febrile episode and WBC count less than 4 Right pyelonephritis based on UA - Clinically patient has quiescent right CVA tenderness having UA positive for UTI - Although CT scan does not show any radiographic evidence of pyelonephritis Plan - Urine cultures showed gram-negative rods and to follow the culture sensitivity - Blood cultures showed staph epi likely contaminant - IV fluids - IV Rocephin to continue - Adequate analgesia Acute kidney injury and electrolyte imbalance(mild hyponatremia) - with evidence of sepsis, IV fluids - Currently improving and to monitor - Mild hyponatremia resolved which was secondary to sepsis - continue adequate hydration and to monitor History of pulmonary embolism, - Continue Eliquis Transaminitis: - Continue to monitor and hold any hepatotoxic drug, currently trending down - If continue to rise then consider ultrasound liver, Asthma: DuoNeb scheduled and continue montelukast Type 2 diabetes mellitus: Continue glargine to increase to 12 units for better control of glucose (patient on 30 units daily ) low-dose sliding scale to continue Need adequate blood glucose control since patient having UTI and can further worsen Anxiety disorder: - Continue amitriptyline at bedtime Heart failure with preserved ejection fraction: Can resume beta-blockers carvedilol 12.5 mg twice daily and nitrates to resume since her blood pressure has been remained stable Resume medications once the blood pressure is stable Full code Eliquis for DVT based on history of PE PDMP PDMP Reviewed: Not Reviewed Attestations Medical Necessity Statement*: Will stay in the hospital for further management of her sepsis which has resolved secondary to UTI/complicated UTI, further complication of transaminitis and hyponatremia currently improving await culture sensitivity Time Spent in Patient Care: 16 - 35 minutes (>than 50% of time spent in counselling and/or direct pt care on unit). Other Attestations: Patient condition has been discussed at length with the patient/family, I have independently reviewed the chart labs imaging and diagnostics and EKG. the goals of care and code status with the patient/family/NOK/legal shipping services sales representative, and documented accordingly. The patient/family has been informed about the current condition and further plan of care. Agreed with the plan of care and understood without any language barrier. This documentation was created by [employer] assembler mechanical ordnance software. Every effort was made to ensure accuracy of assembler mechanical ordnance. Any obvious errors or omissions should be clarified with the author of the document. Coding Level of Care Code 96566 Diagnoses Pyelonephritis of right kidney N12 UTI (urinary tract infection) N39.0 Sepsis A41.9 Hx of pulmonary embolus Z86.711 Primary hypertension I10 Hypertension type: primary hypertension Mixed hyperlipidemia E78.2 Hyperlipidemia type: mixed hyperlipidemia Type 2 diabetes mellitus with other neurologic complication, without long-term current use of insulin E11.49 Diabetes mellitus vice president mission integration insulin use: without vice president mission integration use Diabetes mellitus complication status: with neurologic complications Diabetes mellitus complication detail: with other neurological complication CKD stage 2 due to type 2 diabetes mellitus E11.22; N18.2 Transaminitis R74.01
[2025-05-07] MEDS: ondansetron 2 mg/ML SDV 2 mL 4 MG IVP (15:40)
[2025-05-07] MEDS: oxyCODONE 5 mg IR Tab/Cap PO ×2 (17:00→21:28)
--- NOTE | 2025-05-07 18:12 | PC.NURSE ---
Patient started complaining of left sided chest pain when this nurse rounded. She said she normally has chest pain from her pulmonary HTN and she believes that it what it is. She said she normally takes a nitro and does deep breathing exercises at home and it goes away. Current BP is 111/68 HR 77 O2 97% on room air. One EKG and one troponin ordered.
--- NOTE | 2025-05-07 18:13 | ECG_ITS ---
[facility] Date: 2025-05-07 Pat Name: Arelis Nathan Department: Room: 279 Gender: Female Principal Librarian: : 1960 Requested By: Inder Marcus Order Number: [id number] Andrei MD: Henna Gray M.D. Measurements Intervals [place] Rate: 63 P: 9 NM: 185 QRS: 71 QRSD: 122 T: 30 QT: 413 QTc: 425 Interpretive Statements SINUS RHYTHM MODERATE INTRAVENTRICULAR CONDUCTION DELAY [110+ ms QRS DURATION] Compared to ECG 05/07/2025 18:21:10 Intraventricular conduction delay now present Electronically Signed On 05-08-2025 18:54:59 CDT by Henna Gray M.D. [id number] [id number]
--- NOTE | 2025-05-07 18:21 | ECG_ITS ---
[facility] Test Date: 2025-05-07 Pat Name: Arelis Nathan Department: Room: 279 Gender: Female Hvac Engineering Technician: : 1960 Requested By: Inder Marcus Order Number: [id number] Andrei MD: Henna Gray M.D. Measurements Intervals [place] Rate: 72 P: 41 NE: 182 QRS: 77 QRSD: 98 T: 29 QT: 374 QTc: 410 Interpretive Statements SINUS RHYTHM LOW QRS VOLTAGE IN PRECORDIAL LEADS [QRS DEFLECTION < 1.0 mV IN CHEST LEADS] Compared to ECG 05/05/2025 21:46:44 No significant changes Electronically Signed On 05-08-2025 18:55:57 CDT by Henna Gray M.D. [id number] [id number]
[2025-05-07 19:06] LABS: Troponin(5th) Baseline 14 ng/L (0-10)
--- NOTE | 2025-05-07 20:13 | ECG_ITS ---
[facility] Date: 2025-05-07 Pat Name: Arelis Nathan Department: Room: 279 Gender: Female Route Delivery Manager: : 1960 Requested By: Inder Marcus Order Number: [id number] Andrei MD: Henna Gray M.D. Measurements Intervals [place] Rate: 66 P: 17 CT: 201 QRS: 66 QRSD: 101 T: 29 QT: 395 QTc: 414 Interpretive Statements SINUS RHYTHM WITH OCCASIONAL VENTRICULAR PREMATURE COMPLEXES LOW QRS VOLTAGE IN PRECORDIAL LEADS [QRS DEFLECTION < 1.0 mV IN CHEST LEADS] Compared to ECG 05/07/2025 19:41:29 Ventricular premature complex(es) now present Low QRS voltage now present Intraventricular conduction delay no longer present Electronically Signed On 05-08-2025 19:04:19 CDT by Henna Gray M.D. [email or web address]
[2025-05-07] MEDS: insulin glargine 100 units/1 mL 12 UNIT SUBCUT (21:28)
[2025-05-08] VITALS (7 sets, daily range): BP systolic 102–127; BP diastolic 62–71; PULSE 64–69; RESP 15–18; TEMP 36.6–37; O2SAT 93–98
[2025-05-08 01:25] LABS: Hematocrit 33.1 % (36-47); Hemoglobin 10.70 g/dL (11.27-16.99); Mean Corpuscular HGB Conc 32.3 g/dL (30-55); Mean Corpuscular Hemoglobin 28.5 pg (27-33); Mean Corpuscular Volume 88.3 fl (85-98); Platelet Count 197 10^3/cmm (157-399); Red Blood Count 3.75 10^6/uL (3.85-5.65); White Blood Count 3.49 10^3/uL (3.29-11.43)
--- NOTE | 2025-05-08 01:30 | ECG_ITS ---
[facility] Test Date: 2025-05-08 Pat Name: Arelis Nathan Department: Room: 279 Gender: Female Client Support Administrator: : 1960 Requested By: Inder Marcus Order Number: [id number] Andrei MD: Henna Gray M.D. Measurements Intervals [place] Rate: 66 P: 14 [place]: 199 QRS: 85 QRSD: 94 T: 47 QT: 420 QTc: 443 Interpretive Statements SINUS RHYTHM WITH OCCASIONAL ECTOPIC PREMATURE COMPLEXES LOW QRS VOLTAGE IN PRECORDIAL LEADS [QRS DEFLECTION < 1.0 mV IN CHEST LEADS] Compared to ECG 05/07/2025 21:30:38 Ventricular premature complex(es) no longer present Electronically Signed On 05-08-2025 19:02:28 CDT by Henna Gray M.D. [id number] [id number]
[2025-05-08 02:11] LABS: Alanine Aminotransferase 58 U/L (0-33); Albumin Level 3.6 g/dL (3.5-5.2); Alkaline Phosphatase 60 U/L (35-105); Anion Gap 16.1 (5-19); Aspartate Amino Transferase 55 U/L (0-32); Blood Urea Nitrogen 20 mg/dL (8-23); Calcium 8.3 mg/dL (8.5-10.5); Carbon Dioxide 22 mmol/L (22-29); Chloride 103 mmol/L (98-107); Globulin 1.9 g/dL (1.3-4.6); Glucose 147 mg/dL (65-115); Osmolality Calculated 289 mOsm/kg (285-295); Potassium 4.1 mmol/L (3.5-5.1); Sodium 137 mmol/L (136-145); Total Protein 5.5 g/dL (6.6-8.7)
[2025-05-08 02:12] LABS: Troponin 5 6HR 15.87 ng/L (0-10); Troponin 5 6HR Delta 1.87 ng/L (0-12)
[2025-05-08 02:13] LABS: Creatinine Clr Calc Pharmacy 70.2763
[2025-05-08 02:26] LABS: Slide Review Slide Review Perform
[2025-05-08 02:31] LABS: Absolute Segmented Neutrophil 0.9 10/cmm (1.6-7.1); Atypical Lymphs 7.0 % (0-5); Band Neutrophils Absolute 0.0 10^3/cmm (0.0-1.2); Total Cells Counted 100 (0-100)
[2025-05-08] MEDS: ondansetron 2 mg/ML SDV 2 mL 4 MG IVP (08:00)
[2025-05-08] MEDS: cefTRIAXone 1,000 mg SDV 1000 MG IVP (09:24)
--- NOTE | 2025-05-08 14:03 | P.DS_ITS ---
Discharge Providers Date of Admission: 05/05/25 20:00 Date of Discharge: May 08, 2025 Attending Provider at Admission: Ronald Umana MD Attending Provider at Discharge: Inder Marcus MD Primary Care Provider: Ciaran Nelson MD Diagnoses at Discharge Discharge Diagnosis 1. Pyelonephritis of right kidney: 2. UTI (urinary tract infection): 3. Sepsis: 4. Hx of pulmonary embolus: 5. Primary hypertension: 6. Mixed hyperlipidemia: 7. Type 2 diabetes mellitus with other neurologic complication, without long- term current use of insulin: 8. CKD stage 2 due to type 2 diabetes mellitus: 9. Transaminitis: Reason for Visit Reason for Visit: CP SOB low grade fever headache Nausa Brief History: Arelis Nathan is a 64 year old female with a past medical history of heart failure with preserved ejection fraction, hypertension, hyperlipidemia, LVH, type 2 diabetes mellitus, asthma, chronic pain, GERD, patient is on Eliquis for history of pulmonary embolism, who presents [facility] due to a week history of fevers, chills, right flank pain, nausea, vomiting. Currently patient is alert oriented x 3, following all commands, she does for the 60s, she has been feeling fatigue, malaise, fevers, chills, nausea, vomiting, has bilateral lower back pain but specially exquisite right flank pain, does report a cough, does report wheezing, Hospital Course Hospital Course Patient underwent blood works and initially was found to have LINDA on CKD. Hyponatremia. Possible related to dehydration. The patient UA showed likely UTI however microbiology for blood cultures showed staph epi likely contaminant. But urine culture grew few gram-negative rods. So patient was treated and managed as a case of severe symptomatic UTI. The patient received adequate hydration and she was kept on broad-spectrum antibiotics with ceftriaxone. She had mild shoulder pain and underwent Right shoulder x-ray which showed mild arthritic change but no fracture. She also underwent abdominal pelvic CT that was unremarkable for any hydronephrosis or stones. Her chest x-ray showed stable cardiac enlargement without any infiltrates. She also had mild chest pain during her hospital stay troponins were not having remarkable or concerning rise and EKG did not show any concerning features of acute [place]. The patient was monitored and remained stable. after seeing her recovery and further clinical improvement, antibiotics were switched to oral with levofloxacin to provide coverage for gram-negative rods. The patient was informed about her medical condition, with all the risk and benefits of the management without any language barrier. She understand and agree with the plan of care. The patient hospital course was uncomplicated. To be discharged on oral antibiotics for 7 days and to follow-up with the primary care doctor for discharge follow-up Physical Exam Narrative: General: Alert oriented x3, patient seen sitting on the chair playing cards, comfortably without any distress HEENT: Normocephalic, atraumatic, EOMI, breathing on room air Cardio: Regular rate rhythm, normal S1-S2, no murmurs rubs gallops, JVD normal Respiratory: Good bilateral air entry, no wheezes no rhonchi appreciated GI: Abdomen soft, nontender, nondistended, normoactive bowel sounds present all 4 quadrants, no flank tenderness elicited today Neuro: Cranial nerves II to XII intact, strength 5/5, sensation 5/5, no gross neurological deficit Behavior: Appropriate and cooperative Extremities: Unremarkable exam,mild back pain but able to move around Skin: Visible skin intact, no rashes Discharge Data Studies Completed and Pending Completed Studies During Hospitalization Category Date Time Status CT kidney stone [id number] Stat Cat Scan 05/05/25 16:34 Completed XR chest 1V portable [id number] Stat Exams 05/05/25 14:23 Completed XR shoulder RT min 2V* [id number] Routine Exams 05/07/25 10:16 Completed Pending at discharge Category Date Time Status Blood Culture Stat Lab 05/05/25 14:07 Results Urine Culture Stat Lab 05/05/25 15:50 Results Radiology Impressions Chest X-Ray 05/05/25 14:23 IMPRESSION: 1. Lungs are clear. 2. Stable cardiac enlargement. Abdomen/Pelvis CT 05/05/25 16:34 IMPRESSION: 1. Subtle infiltration of the sigmoid mesocolon without definitive evidence of diverticulitis. Possible scarring related to remote inflammation. A chronic or recurrent low-grade inflammatory process of the sigmoid colon is not excluded. 2. Incidental findings above. Shoulder X-Ray 05/07/25 10:16 IMPRESSION: Mild arthritic changes Laboratory Results WBC 3.49 10^3/uL (3.29-11.43) 05/08/25 01:19 RBC 3.75 10^6/uL (3.85-5.65) L 05/08/25 01:19 Hgb 10.70 g/dL (11.27-16.99) L 05/08/25 01:19 Hct 33.1 % (36-47) L 05/08/25 01:19 MCV 88.3 fl (85-98) 05/08/25 01:19 MCH 28.5 pg (27-33) 05/08/25 01:19 MCHC 32.3 g/dL (30-55) 05/08/25 01:19 RDW 14.7 % (12.1-15.1) 05/08/25 01:19 Plt Count 197 10^3/cmm (157-399) 05/08/25 01:19 MPV 9.4 fL (7.4-10.4) 05/08/25 01:19 Neut % (Auto) 52.3 % 05/06/25 05:20 Lymph % (Auto) Not Reportable 05/08/25 01:19 [place] % (Auto) Not Reportable 05/08/25 01:19 Eos % (Auto) 0.2 % 05/06/25 05:20 Baso % (Auto) 0.5 % 05/06/25 05:20 Neut # (Auto) Not Reportable 05/08/25 01:19 Lymph # (Auto) Not Reportable 05/08/25 01:19 [place] # (Auto) Not Reportable 05/08/25 01:19 Eos # (Auto) 0.0 10^3/uL (0.0-0.8) 05/06/25 05:20 Baso # (Auto) 0.0 10^3/uL (0.0-0.1) 05/06/25 05:20 Nucleated RBC % (auto) 0 % 05/06/25 05:20 Total Counted 100 (0-100) 05/08/25 01:19 Atypical Lymphs % 7.0 % (0-5) H 05/08/25 01:19 Absolute Neutrophils 1.0 10^3/cmm (1.4-6.5) L 05/08/25 01:19 Segmented Neutrophils 27 % 05/08/25 01:19 Band Neutrophils 1.0 % 05/08/25 01:19 Absolute Lymphocytes 2.2 10^3/cmm (1.2-3.4) 05/08/25 01:19 Lymphocytes (Manual) 56 % 05/08/25 01:19 Monocytes (Manual) 5.0 % 05/08/25 01:19 Absolute Monocytes 0.2 10^3/cmm (0.1-0.6) 05/08/25 01:19 Eosinophils (Manual) 3 % 05/08/25 01:19 Absolute Eosinophils 0.1 10^3/cmm (0.0-0.7) 05/08/25 01:19 Basophils (Manual) 0.0 % 05/08/25 01:19 Absolute Basophils 0.0 10^3/cmm (0.0-0.2) 05/08/25 01:19 Metamyelocytes 1.0 % 05/08/25 01:19 Nucleated RBCs 1.0 /100WBC (0-1) 05/07/25 04:46 Nucleated RBCs # 0.0 /100WBC 05/06/25 05:20 Platelet Estimate Normal (Normal) 05/08/25 01:19 Specimen Type Arterial 05/05/25 14:55 Sample Site Brachial, left 05/05/25 14:55 ABG pH 7.39 (7.35-7.45) 05/05/25 14:55 ABG pCO2 31.4 mmHg (35-45) L 05/05/25 14:55 ABG pO2 67.9 mmHg (80.0-100.0) L 05/05/25 14:55 ABG PO2/FiO2 Ratio 323 05/05/25 14:55 ABG HCO3 19.0 mmol/L (22-26) L 05/05/25 14:55 ABG O2 Saturation 94.4 05/05/25 14:55 ABG Base Excess -5.0 mmol/L (-2.0-2.0) L 05/05/25 14:55 [place] Test N/a 05/05/25 14:55 A-a O2 Gradient 5.5 mmHg (5-10) 05/05/25 14:55 Hematocrit 37.8 % (37-47) 05/05/25 14:55 Hgb O2 Saturation 93.6 % (95-100) L 05/05/25 14:55 Carboxyhemoglobin 0.7 %THgb (0.4-20.1) 05/05/25 14:55 Methemoglobin 0.1 % (0.4-1.5) L 05/05/25 14:55 Total Hemoglobin 12.3 g/dL (12-16) 05/05/25 14:55 Sodium 130.0 mmol/L (131-143) L 05/05/25 14:55 Potassium 4.2 mmol/L (3.5-5.0) 05/05/25 14:55 Glucose 132.0 mg/dL (70-115) H 05/05/25 14:55 Ionized Calcium 1.1 mmol/L (1.1-1.4) 05/05/25 14:55 O2 Delivery Device Room air 05/05/25 14:55 FiO2 21.0 % 05/05/25 14:55 [employer] ID Amh 05/05/25 14:55 Sodium 137 mmol/L (136-145) 05/08/25 01:19 Potassium 4.1 mmol/L (3.5-5.1) 05/08/25 01:19 Chloride 103 mmol/L (98-107) 05/08/25 01:19 Carbon Dioxide 22 mmol/L (22-29) 05/08/25 01:19 Anion Gap 16.1 (5-19) 05/08/25 01:19 BUN 20 mg/dL (8-23) 05/08/25 01:19 Creatinine 1.2 mg/dL (0.5-0.9) H 05/08/25 01:19 GFR Calculation 45.4 mL/min (90-130) L 05/08/25 01:19 Glucose 147 mg/dL (65-115) H 05/08/25 01:19 POC Glucose 154 mg/dL (70-110) H 05/08/25 11:51 Estimat Average Glucose 140 05/05/25 14:07 Hemoglobin A1c 6.5 % (4.0-6.0) H 05/05/25 14:07 Calculated Osmolality 289 mOsm/kg (285-295) 05/08/25 01:19 Lactic Acid 2.0 mmol/L (0.5-2.2) 05/05/25 14:07 Calcium 8.3 mg/dL (8.5-10.5) L 05/08/25 01:19 Total Bilirubin 0.2 mg/dL (0.15-1.2) 05/08/25 01:19 AST 55 U/L (0-32) H 05/08/25 01:19 ALT 58 U/L (0-33) H 05/08/25 01:19 Alkaline Phosphatase 60 U/L (35-105) 05/08/25 01:19 Troponin T Baseline 14 ng/L (0-10) H 05/07/25 18:37 Troponin T 120 Minute 17.43 ng/L (0-10) H 05/05/25 16:13 Delta Troponin T 1.43 ABS# (0-10) 05/05/25 16:13 Troponin T Hi Sens 6Hr 15.87 ng/L (0-10) H 05/08/25 01:19 Troponin T Hi Sens 6Hr Delta 1.87 ng/L (0-12) 05/08/25 01:19 NT-Pro-B Natriuret Pep 96 pg/mL (0-125) 05/05/25 14:07 Total Protein 5.5 g/dL (6.6-8.7) L 05/08/25 01:19 Albumin 3.6 g/dL (3.5-5.2) 05/08/25 01:19 Globulin 1.9 g/dL (1.3-4.6) 05/08/25 01:19 Triglycerides 134 mg/dL (0-150) 05/05/25 14:07 Cholesterol 78 mg/dL (0-200) 05/05/25 14:07 LDL Cholesterol, Calc 16 mg/dL (50-129) L 05/05/25 14:07 HDL Cholesterol 35 mg/dL (60-100) L 05/05/25 14:07 LDL/HDL Ratio 0.46 RATIO (0.00-3.22) 05/05/25 14:07 Cholesterol/HDL Ratio 2.23 mg/dL (0.0-4.40) 05/05/25 14:07 Lipase 50 U/L (13-60) 05/05/25 14:07 Procalcitonin 0.13 ng/mL (0-0.5) 05/05/25 14:07 TSH 2.07 uIU/mL (0.27-4.20) 05/05/25 14:07 Urine Color Yellow (Yellow) 05/05/25 15:50 Urine Appearance Clear (CLEAR) 05/05/25 15:50 Urine pH 5.5 (5-7) 05/05/25 15:50 Ur Specific [place] 1.016 (1.005-1.030) 05/05/25 15:50 Urine Protein 1+ (Negative) A 05/05/25 15:50 Urine Glucose (UA) Negative (Normal) 05/05/25 15:50 Urine Ketones Negative (Negative) 05/05/25 15:50 Urine Blood Negative (Negative) 05/05/25 15:50 Urine Nitrate Positive (Negative) A 05/05/25 15:50 Urine Bilirubin Negative (Negative) 05/05/25 15:50 Urine Urobilinogen 0.2 mg/dL (Negative) 05/05/25 15:50 Ur Leukocyte Esterase 2+ (Negative) A 05/05/25 15:50 Urine RBC 0-2 /hpf (0-2) 05/05/25 15:50 Urine WBC >100 /hpf (0-5) H 05/05/25 15:50 Ur Squamous Epith Cells 0-5 /hpf (0-5) 05/05/25 15:50 Amorphous Sediment Not Reportable 05/05/25 15:50 Urine Bacteria 4+ /hpf (NONE) H 05/05/25 15:50 Hyaline Casts 4.95 /lpf 05/05/25 15:50 Influenza A (PCR) Negative (Negative) 05/05/25 23:40 Influenza Type B (PCR) Negative (Negative) 05/05/25 23:40 RSV (PCR) Negative (Negative) 05/05/25 23:40 SARS-CoV-2 (PCR) Negative (Negative) 05/05/25 23:40 Vitals Last Vital Signs Temp 98.5 F 05/08/25 12:00 Pulse 67 05/08/25 13:24 Resp 18 05/08/25 13:24 BP 127/71 05/08/25 12:00 Pulse Ox 96 05/08/25 13:24 O2 Del Method Room Air 05/08/25 13:24 FiO2 21 05/05/25 23:12 Discharge Plan Discharge Patient Disposition: Home Condition: Stable Prescriptions: New levofloxacin 750 mg tablet 750 mg PO DAILY 7 Days Qty: 7 0RF Continued nitroglycerin [Nitrostat] 0.4 mg tablet, sublingual 0.4 mg sublingual Q5M PRN (Reason: chest pain) Qty: 25 3RF Rx Instructions: do not exceed 3 doses per episode (DME) OneTouch Verio test strips Strip See Rx Instructions .Route Qty: 100 3RF Rx Instructions: Check BS twice a day. Emgality Pen 120 mg/mL pen injector 120 mg SUBCUT Q30D Qty: 1 11RF metoclopramide HCl [Reglan] 10 mg tablet 10 mg PO BID Qty: 120 2RF zolpidem 10 mg tablet 10 - 20 mg PO BEDTIME PRN (Reason: insomnia) Qty: 60 0RF carvedilol 12.5 mg tablet See Rx Instructions .ROUTE .COMPLEX Qty: 270 3RF Dose Instruction: TAKE 1 & 1/2 (ONE & ONE-HALF) TABLETS BY MOUTH TWICE DAILY WITH FOOD OR MEAL Rx Instructions: Take TWO tablets (25mg) q AM and ONE tablet (12.5mg) q PM daily; (DME) crutch Misc See Rx Instructions miscellaneous .MEDSUPPLY Qty: 2 0RF Rx Instructions: As directed (DME) cam walker See Rx Instructions .ROUTE .MEDSUPPLY Qty: 1 0RF Rx Instructions: As directed (DME) ASO left ankle brace See Rx Instructions .Route .MEDSUPPLY Qty: 1 0RF Rx Instructions: As directed by JUNE (DME) lancets 23 gauge misc See Rx Instructions .Route Qty: 100 3RF Rx Instructions: As directed (DME) blood sugar diagnostic Strip See Rx Instructions .Route Qty: 100 3RF Rx Instructions: As directed (DME) blood-glucose meter Misc See Rx Instructions .Route Qty: 1 0RF Rx Instructions: As directed tizanidine 4 mg tablet 4 mg PO Q8H PRN (Reason: muscle spasticity) Qty: 90 1RF valsartan-hydrochlorothiazide 320-25 mg tablet 0.5 tab PO BID Qty: 45 3RF methocarbamol 750 mg tablet 750 mg PO Q8H PRN (Reason: back pain) Qty: 60 3RF lovastatin 20 mg tablet 20 mg PO DAILY Qty: 90 1RF Eliquis 5 mg tablet 5 mg PO BID Qty: 180 1RF tramadol 50 mg tablet 100 mg PO Q8H PRN (Reason: pain, severe) Qty: 180 1RF Rx Instructions: refill on or after 30-day intervals fluticasone propion-salmeterol [Advair Diskus] 250-50 mcg/dose blister with device 1 inh inhalation BID Qty: 60 1RF montelukast 10 mg tablet 10 mg PO DAILY Qty: 90 0RF insulin glargine U-300 conc 300 unit/mL (3 mL) insulin pen 30 unit SUBCUT DAILY PRN (Reason: Insulin for diabetes) Qty: 6 3RF Rx Instructions: Sliding scale for her daily doses 150-200 5u 201-250 10u 251-300 15u metformin 1,000 mg tablet 1,000 mg PO BID Qty: 180 1RF ondansetron 8 mg tablet,disintegrating 8 mg PO Q12H PRN (Reason: nausea and vomiting) Qty: 60 1RF amitriptyline 50 mg tablet See Rx Instructions .ROUTE .COMPLEX Qty: 90 0RF Dose Instruction: TAKE 1 TABLET BY MOUTH AT BEDTIME Rx Instructions: TAKE 1 TABLET BY MOUTH AT BEDTIME multivitamin Tablet 1 tab PO DAILY folic acid 1 mg Tablet 1 mg PO DAILY cholecalciferol (vitamin D3) [Vitamin D3] 25 mcg (1,000 unit) Capsule 25 mcg PO DAILY isosorbide mononitrate 30 mg tablet extended release 24 hr 30 mg PO BID Qty: 90 3RF Discharge Order = DC NOW: Discharge Order (Routine); Ordered 05/08/25 Ordered By: Inder Marcus Referrals: Ciaran Nelson MD [Primary Care Provider, Family Practice] - 4-7 days Referral Note: We have notified your physician's clinic of the need for a follow-up appointment to be scheduled. If you have not heard from them within the next 2 business days, please call them directly. Discharge Diet: Advance as tolerated and Usual diet Discharge Activity: Resume usual activity and Increase activity as tolerated Patient Instructions: Opioid Safety, Patient Portal & [facility] Instructions Discharge Attestations Time Spent in Discharge Care*: less than 30 min Specific Discharge Activities: educating patient, educating and/or supporting family/caregiver, discussing with pcp/other providers, discussing with nurse case manager/social workers/dc planners, documenting/other paperwork and evaluating patient/reviewing data Status at Discharge: Cognitive status at discharge: cognitively intact , Behavioral status at discharge: cooperative , Functional status at discharge: independent ambulation , Overall status at discharge: patient is back to baseline Quality Metrics Clinical Quality Measures [ No reported AMI, CVA or VTE this stay] Coding Level of Care Code Acute Code for Chg Fwd Diagnoses Pyelonephritis of right kidney N12 UTI (urinary tract infection) N39.0 Sepsis A41.9 Hx of pulmonary embolus Z86.711 Primary hypertension I10 Hypertension type: primary hypertension Mixed hyperlipidemia E78.2 Hyperlipidemia type: mixed hyperlipidemia Type 2 diabetes mellitus with other neurologic complication, without long-term current use of insulin E11.49 Diabetes mellitus nursing home insulin use: without nursing home use Diabetes mellitus complication status: with neurologic complications Diabetes mellitus complication detail: with other neurological complication CKD stage 2 due to type 2 diabetes mellitus E11.22; N18.2 Transaminitis R74.01
--- NOTE | 2025-05-08 14:50 | PC.NURSE ---
Discharge paperwork discussed with patient and spouse. All questions were answered. Patient educated to drink plenty of fluids and follow up with PCP. IV was removed. Patient was escorted by this nurse to exit, with spouse and all belongings, at 1420.
== END 2025-05-08 14:20 | disposition home or self-care (01) | DRG 872 ==
LOC: ER 19:07 → MEDSURG 20:00
PROVIDERS: Family Medicine; Admitting Provider Family Medicine; Emergency Provider Student in an Organized Health Care Education/Training Program; PCP Family Medicine; Visit Provider Student in an Organized Health Care Education/Training Program
DX: A41.9 Sepsis, unspecified organism (principal); N12 Tubulo-interstitial nephritis, not specified as acute or chronic; I50.30 Unspecified diastolic (congestive) heart failure; I50.1 Left ventricular failure, unspecified; N17.9 Acute kidney failure, unspecified; E87.1 Hypo-osmolality and hyponatremia; E78.2 Mixed hyperlipidemia; E11.22 Type 2 diabetes mellitus with diabetic chronic kidney disease; N18.2 Chronic kidney disease, stage 2 (mild); Z79.4 Long term (current) use of insulin; Z79.84 Long term (current) use of oral hypoglycemic drugs; R74.01 Elevation of levels of liver transaminase levels; I11.0 Hypertensive heart disease with heart failure; E86.0 Dehydration; M19.011 Primary osteoarthritis, right shoulder; R07.9 Chest pain, unspecified; J45.909 Unspecified asthma, uncomplicated; K21.9 Gastro-esophageal reflux disease without esophagitis; F41.9 Anxiety disorder, unspecified; I25.10 Atherosclerotic heart disease of native coronary artery without angina pectoris; G43.909 Migraine, unspecified, not intractable, without status migrainosus; Z86.711 Personal history of pulmonary embolism; Z79.01 Long term (current) use of anticoagulants
CPT/HCPCS: 36415; 36416; 36600; 71045; 73030; 74176; 80048; 80051; 80053; 80061; 81001; 82330; 82805; 82962; 83036; 83605; 83690; 83880; 84145; 84443; 84484; 85007; 85025; 87040; 87077; 87086; 87150; 87186; 87205; 87637; 93005; 94640; 94664; 96372; 96374; 96375; 99285; J0696; J1171; J1815; J1938; J2270; J2405; J7030; J9999

== ENCOUNTER 2025-05-17 14:31 | Outpatient (CLI) | payer MEDICARE, SELFPAY ==
--- NOTE | 2025-05-17 14:35 | XR_ITS ---
WS: [id number] SCREENING DEXA SCAN Finalta CLINICAL INFORMATION: osteoporosis COMPARISON: None. FINDINGS: The L1-L4 bone mineral density measures 1.000 g/cm2. This corresponds to a T score score of -1.5 and Z score of -1.2. Left femoral neck bone mineral density measures 0.907 g/cm2. This corresponds to a T score of -0.8 and Z score of -0.5. Right femoral neck bone mineral density measures 0.863 g/cm2. This corresponds to a T score -1.1of and Z score of -0.9. Mean femoral neck bone mineral density measures 0.885 g/cm2. This corresponds to a T score of -1.0 and Z score of -0.7. XR/XR DEXA axial skeleton* [id number] IMPRESSION: Osteopenia lumbar spine. Osteopenia femoral necks. Patient's FRAX calculated 10 year probability for major osteoporotic fracture i s 7.1% and osteoporotic hip fracture is 0.6%.
== END 2025-05-17 14:32 | disposition home or self-care (01) ==
PROVIDERS: PCP Family Medicine; Visit Provider Family Medicine
DX: Z13.820 Encounter for screening for osteoporosis (principal); M85.88 Other specified disorders of bone density and structure, other site
CPT/HCPCS: 77080

== ENCOUNTER → 2025-05-18 10:03 | Outpatient (BNVA) | payer MEDICARE, SELFPAY | PROVIDERS: PCP Family Medicine; Visit Provider Family Medicine | DX: N39.0 Urinary tract infection, site not specified (principal) | CPT/HCPCS: 81000 ==

== ENCOUNTER 2025-05-30 10:27 | Outpatient (CLI) | payer MEDICARE, SELFPAY ==
--- NOTE | 2025-05-30 10:06 | MM_ITS ---
WS: [id number] DIAGNOSTIC BILATERAL DIGITAL BREAST TOMOSYNTHESIS MAMMOGRAPHY WITH CAD HISTORY: scar tissue/pain, patient indicates no current abnormalities. COMPARISON: 03/06/2021, 02/20/2021 TECHNIQUE: Bilateral craniocaudad, mediolateral oblique, and mediolateral views are submitted with tomosynthesis and SM. Computer aided detection utilized. Breast composition: The breasts are almost entirely fatty. No suspicious masses or grouping of calcifications. No distortion. No nipple retraction. There are benign calcifications in each breast. MM/MM diag tomosynthesis [id number] IMPRESSION: BI-RADS: 2 - Benign. FOLLOW UP: 1 Year Follow-up
== END 2025-05-30 10:28 | disposition home or self-care (01) ==
LOC: RAD 10:30
PROVIDERS: PCP Family Medicine; Visit Provider Family Medicine
DX: R92.313 Mammographic fatty tissue density, bilateral breasts (principal); R92.8 Other abnormal and inconclusive findings on diagnostic imaging of breast
CPT/HCPCS: 77062; G0279

== ENCOUNTER 2025-06-06 16:30 | Outpatient (CLI) | payer MEDICARE, SELFPAY ==
--- NOTE | 2025-06-06 16:45 | USCV_ITS ---
Arelis Nathan Age: 64 Gender: F : 1960 Exam Date: 06/06/2025 16:49 Ordering Phys: Ciaran Nelson MD Technologist: Exam Location: [facility] [place] Indication: possible blood clot HISTORY: possible blood clot PROCEDURES: Venous duplex imaging was performed in only the right upper extremity. Serial compression, augmentation maneuvers, and spectral Doppler flow evaluation were performed. FINDINGS: The veins of the right upper extremity are readily compressible with normal venous flow dynamics including spontaneous flow, respiratory phasic variation and augmentation. Area of pain scanned on right lateral bicep. No obvious abnormalities CONCLUSIONS No evidence of thrombus of the right upper extremity veins. Garcia Hirsch MD (Electronically Signed) Final Date: 07 June 2025 08:49 S
== END 2025-06-06 16:31 | disposition home or self-care (01) ==
LOC: RAD 16:34
PROVIDERS: PCP Family Medicine; Visit Provider Family Medicine
DX: Z86.711 Personal history of pulmonary embolism (principal)
CPT/HCPCS: 93971

== ENCOUNTER → 2025-06-15 10:14 | Outpatient (BNVA) | payer MEDICARE, SELFPAY | PROVIDERS: PCP Family Medicine; Visit Provider Family Medicine | DX: Z12.4 Encounter for screening for malignant neoplasm of cervix (principal) | CPT/HCPCS: 87624 ==

== ENCOUNTER → 2025-06-16 09:10 | Outpatient (BNVA) | payer MEDICARE, SELFPAY | PROVIDERS: PCP Family Medicine; Visit Provider Internal Medicine Cardiovascular Disease | DX: I35.9 Nonrheumatic aortic valve disorder, unspecified (principal); I27.20 Pulmonary hypertension, unspecified; I34.81 Nonrheumatic mitral (valve) annulus calcification; I51.7 Cardiomegaly; I49.3 Ventricular premature depolarization; Z86.711 Personal history of pulmonary embolism; Z79.01 Long term (current) use of anticoagulants | CPT/HCPCS: 99214 ==

== ENCOUNTER → 2025-07-19 10:51 | Outpatient (BNVA) | payer MEDICARE, SELFPAY | PROVIDERS: PCP Family Medicine; Visit Provider Specialist | DX: G43.711 Chronic migraine without aura, intractable, with status migrainosus (principal); G89.29 Other chronic pain; F41.9 Anxiety disorder, unspecified; I27.20 Pulmonary hypertension, unspecified; G43.909 Migraine, unspecified, not intractable, without status migrainosus; I35.0 Nonrheumatic aortic (valve) stenosis; R03.0 Elevated blood-pressure reading, without diagnosis of hypertension | CPT/HCPCS: 99212 ==